=== PATIENT | male | born 1955 | race Caucasian/White ===

== ENCOUNTER → 2019-11-19 13:42 | Outpatient (BNVA) | payer MEDICARE, SELFPAY | PROVIDERS: Family Provider Family Medicine; PCP Family Medicine; Visit Provider Anesthesiology | DX: G89.29 Other chronic pain (principal); M51.36 Other intervertebral disc degeneration, lumbar region; M47.817 Spondylosis without myelopathy or radiculopathy, lumbosacral region; M48.062 Spinal stenosis, lumbar region with neurogenic claudication; M96.1 Postlaminectomy syndrome, not elsewhere classified; Z79.891 Long term (current) use of opiate analgesic | CPT/HCPCS: 80307; 99213; 99214 ==

== ENCOUNTER → 2020-01-15 13:56 | Outpatient (BNVA) | payer MEDICARE, SELFPAY | PROVIDERS: Family Provider Family Medicine; PCP Family Medicine; Visit Provider Anesthesiology | DX: G89.29 Other chronic pain (principal); M51.36 Other intervertebral disc degeneration, lumbar region; M48.062 Spinal stenosis, lumbar region with neurogenic claudication; M47.817 Spondylosis without myelopathy or radiculopathy, lumbosacral region; M53.3 Sacrococcygeal disorders, not elsewhere classified; M96.1 Postlaminectomy syndrome, not elsewhere classified; M79.651 Pain in right thigh; M79.652 Pain in left thigh; Z79.891 Long term (current) use of opiate analgesic | CPT/HCPCS: 99214 ==

== ENCOUNTER → 2020-04-19 13:43 | Outpatient (BNVA) | payer MEDICARE, SELFPAY | PROVIDERS: Family Provider Family Medicine; PCP Family Medicine; Visit Provider Anesthesiology | DX: G89.29 Other chronic pain (principal); M51.36 Other intervertebral disc degeneration, lumbar region; M48.062 Spinal stenosis, lumbar region with neurogenic claudication; M47.817 Spondylosis without myelopathy or radiculopathy, lumbosacral region; M53.3 Sacrococcygeal disorders, not elsewhere classified; M96.1 Postlaminectomy syndrome, not elsewhere classified; Z79.891 Long term (current) use of opiate analgesic | CPT/HCPCS: 99214 ==

== ENCOUNTER → 2020-06-22 13:54 | Outpatient (BNVA) | payer MEDICARE, SELFPAY | PROVIDERS: Family Provider Family Medicine; PCP Family Medicine; Visit Provider Anesthesiology | DX: G89.29 Other chronic pain (principal); M54.42 Lumbago with sciatica, left side; M54.41 Lumbago with sciatica, right side; M51.36 Other intervertebral disc degeneration, lumbar region; M48.062 Spinal stenosis, lumbar region with neurogenic claudication; M47.817 Spondylosis without myelopathy or radiculopathy, lumbosacral region; M53.3 Sacrococcygeal disorders, not elsewhere classified; M96.1 Postlaminectomy syndrome, not elsewhere classified; Z79.891 Long term (current) use of opiate analgesic | CPT/HCPCS: 99214 ==

== ENCOUNTER → 2020-08-17 10:41 | Outpatient (BNVA) | payer MEDICARE, SELFPAY | PROVIDERS: Family Provider Family Medicine; PCP Family Medicine; Visit Provider Nurse Practitioner | DX: G89.29 Other chronic pain (principal); M47.817 Spondylosis without myelopathy or radiculopathy, lumbosacral region; M48.062 Spinal stenosis, lumbar region with neurogenic claudication; M51.36 Other intervertebral disc degeneration, lumbar region; M53.3 Sacrococcygeal disorders, not elsewhere classified; Z79.891 Long term (current) use of opiate analgesic | CPT/HCPCS: 99213 ==

== ENCOUNTER → 2020-10-21 10:55 | Outpatient (BNVA) | payer MEDICARE, SELFPAY | PROVIDERS: Family Provider Family Medicine; PCP Family Medicine; Visit Provider Nurse Practitioner | DX: M48.062 Spinal stenosis, lumbar region with neurogenic claudication (principal); M47.817 Spondylosis without myelopathy or radiculopathy, lumbosacral region; M96.1 Postlaminectomy syndrome, not elsewhere classified; Z79.891 Long term (current) use of opiate analgesic | CPT/HCPCS: 99213 ==

== ENCOUNTER → 2020-12-20 10:47 | Outpatient (BNVA) | payer MEDICARE, SELFPAY | PROVIDERS: Family Provider Family Medicine; PCP Family Medicine; Visit Provider Nurse Practitioner | DX: G89.29 Other chronic pain (principal); M47.817 Spondylosis without myelopathy or radiculopathy, lumbosacral region; M48.062 Spinal stenosis, lumbar region with neurogenic claudication; M53.3 Sacrococcygeal disorders, not elsewhere classified; M96.1 Postlaminectomy syndrome, not elsewhere classified; Z79.891 Long term (current) use of opiate analgesic; Z79.899 Other long term (current) drug therapy | CPT/HCPCS: 99213 ==

== ENCOUNTER → 2021-02-14 11:15 | Outpatient (BNVA) | payer MEDICARE, SELFPAY | PROVIDERS: Family Provider Family Medicine; PCP Family Medicine; Visit Provider Anesthesiology | DX: G89.29 Other chronic pain (principal); M53.3 Sacrococcygeal disorders, not elsewhere classified; M51.36 Other intervertebral disc degeneration, lumbar region; M96.1 Postlaminectomy syndrome, not elsewhere classified; M48.062 Spinal stenosis, lumbar region with neurogenic claudication; M47.817 Spondylosis without myelopathy or radiculopathy, lumbosacral region; Z79.891 Long term (current) use of opiate analgesic; Z79.899 Other long term (current) drug therapy | CPT/HCPCS: 99213 ==

== ENCOUNTER → 2021-04-18 11:00 | Outpatient (BNVA) | payer MEDICARE, SELFPAY | PROVIDERS: Family Provider Family Medicine; PCP Family Medicine; Visit Provider Anesthesiology | DX: G89.29 Other chronic pain (principal); M48.062 Spinal stenosis, lumbar region with neurogenic claudication; M51.36 Other intervertebral disc degeneration, lumbar region; M47.817 Spondylosis without myelopathy or radiculopathy, lumbosacral region; M96.1 Postlaminectomy syndrome, not elsewhere classified; Z79.899 Other long term (current) drug therapy; Z79.891 Long term (current) use of opiate analgesic | CPT/HCPCS: 99213 ==

== ENCOUNTER → 2021-06-16 10:29 | Outpatient (BNVA) | payer MEDICARE, SELFPAY | PROVIDERS: Family Provider Family Medicine; PCP Family Medicine; Visit Provider Anesthesiology | DX: G89.29 Other chronic pain (principal); M48.062 Spinal stenosis, lumbar region with neurogenic claudication; M51.36 Other intervertebral disc degeneration, lumbar region; M47.817 Spondylosis without myelopathy or radiculopathy, lumbosacral region; M96.1 Postlaminectomy syndrome, not elsewhere classified; F17.210 Nicotine dependence, cigarettes, uncomplicated; Z79.891 Long term (current) use of opiate analgesic | CPT/HCPCS: 99213 ==

== ENCOUNTER → 2021-08-17 11:03 | Outpatient (BNVA) | payer MEDICARE, SELFPAY | PROVIDERS: Family Provider Family Medicine; PCP Family Medicine; Visit Provider Anesthesiology | DX: G89.29 Other chronic pain (principal); M48.062 Spinal stenosis, lumbar region with neurogenic claudication; M51.36 Other intervertebral disc degeneration, lumbar region; M47.817 Spondylosis without myelopathy or radiculopathy, lumbosacral region; M96.1 Postlaminectomy syndrome, not elsewhere classified; Z79.891 Long term (current) use of opiate analgesic | CPT/HCPCS: 99213 ==

== ENCOUNTER 2021-10-19 01:16 | Inpatient (IN) | payer MEDICARE, SELFPAY ==
[2021-10-19] VITALS (19 sets, daily range): BP systolic 145–204; BP diastolic 79–109; PULSE 72–117; RESP 9–96; TEMP 36.4–36.8; O2SAT 75–95; BMI 32.8
--- NOTE | 2021-10-19 01:21 | XRR_ITS ---
PROCEDURE INFORMATION: Exam: XR Chest Exam date and time: 10/19/2021 1:21 AM Age: 66 years old Clinical indication: Dyspnea and shortness of breath; Patient HX: Dyspnea with SOB and hypoxia. Diagnosedd with copd last month. ; Additional info: Cp TECHNIQUE: Imaging protocol: XR of the chest. Views: 1 view. COMPARISON: CT chest w con* [id number] 06/17/2018 1:07 PM FINDINGS: Lungs: There is enlargement of the pulmonary vascularity. There is thickening of the interstitial markings. Pleural spaces: Small bilateral pleural effusions. Heart/Mediastinum: The heart is mildly enlarged. Bones/joints: Unremarkable. XR/XR chest 1V portable [id number] IMPRESSION: 1. Congestive heart failure. 2. Small bilateral pleural effusions. Radiation Dose CTDIVOL = (mGy): DLP = (mGy-cm)
--- NOTE | 2021-10-19 01:21 | ECG_ITS ---
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 Measurements Intervals [place] Rate: 100 P: 46 [place]: 135 QRS: 49 QRSD: 89 T: 43 QT: 345 QTc: 446 Interpretive Statements SINUS TACHYCARDIA ABNORMAL RHYTHM ECG Compared to ECG 12/13/2017 16:07:13 ST (T wave) deviation no longer present Electronically Signed On 10-19-2021 16:04:37 MISSION SUPPORT SPECIALIST by Mylene Kennedy M.D. [email or web address] [email or web address] regional medical centerAnthera Pharmaceuticalssheltering arms hospitalDreamFace Interactive/store/OM/[id number]
[2021-10-19 01:30] LABS: Basophils # 0.1 10^3/uL (0.0-0.1); Basophils % 0.7 %; Eosinophils # 0.3 10^3/uL (0.0-0.8); Eosinophils % 2.2 %; Hematocrit 33.8 % (42.0-52.0); Hemoglobin 10.1 g/dL (11.7-16.6); Lymphocytes # 1.4 10^3/uL (0.8-4.8); Lymphocytes % 8.7 %; Mean Corpuscular HGB Conc 29.9 g/dL (30.0-36.0); Mean Corpuscular Hemoglobin 27.9 pg (28.0-34.0); Mean Corpuscular Volume 93.4 fl (80-94); Mean Platelet Volume 9.8 fL (7.4-10.4); Monocytes # 0.8 10^3/uL (0.2-0.9); Monocytes % 5.2 %; Neutrophils # 12.99 10^3/uL (1.8-7.7); Neutrophils % 82.8 %; Nucleated Red Blood Cells % 0 %; Platelet Count 364 10^3/cmm (130-400); Red Blood Count 3.62 10^6/uL (4.1-5.3); Red Cell Distribution Width 13.8 % (12.1-15.1); White Blood Count 15.7 10^3/uL (4.0-10.0)
--- NOTE | 2021-10-19 01:31 | ED_ITS ---
HPI - SOB/Dyspnea General: Chief Complaint: Shortness of Breath/Dyspnea Stated Complaint: SOB Time Seen by Provider: 10/19/21 01:21 Source: patient and EMS Mode of arrival: EMS Limitations: no limitations History of Present Illness: HPI Narrative: 66-year-old male with a history of hypertension normal COPD states that over the last day has been having increasing shortness of breath cough and wheezing he called EMS due to severe dyspnea EMS states today while he was in the 70s on room air is normal oxygen at home he said he had wheezing as well gave him Solu-Medrol breathing treatment placement oxygen patient's breathing has improved he is able to talk in full sentences here but still is in distress with wheezing. Did take patient off oxygen and he desaturated to 75% here. He denies any recent sick contacts or fever. Associated symptoms: Deny abdominal pain, chest pain, fever(s), nausea or vomiting Review of Systems Const: Denies: fever(s), chills, body aches or change in appetite Eyes: Denies: blurry vision or eye discomfort ENMT: Denies: throat pain or dental pain Card: Denies: chest pain Resp: Reports: dyspnea, non-productive cough and wheezing GI: Denies: abdominal pain, nausea, vomiting or diarrhea : Denies: dysuria Musc: Denies: neck pain or back pain Skin/Breast: Denies: rash Neuro: Denies: headache(s) Psych: Denies: depression Fernando/Lymph: Denies: easy bruising All/Imm: Denies: urticaria PFSH ED PFSH: Medical History (Updated 10/19/21 @ 04:03 by Marco Alexander MD) Chronic low back pain Chronic SI joint pain Degeneration of lumbar intervertebral disc Encounter for long-term use of opiate analgesic Long-term use of high-risk medication Opioid contract exists Postlaminectomy syndrome, not elsewhere classified Spinal stenosis, lumbar region with neurogenic claudication Spondylosis without myelopathy or radiculopathy, lumbosacral region Surgical History History of lumbar laminectomy for spinal cord decompression Dr. Srivastava 03/28/17: Left L4-L5, L5-S1 laminectomy,discectomy,foraminotomy History of tonsillectomy S/P knee surgery right S/P shoulder surgery Left Status post hemilaminotomy 06/17/17 Dr. Srivastava: Left L4-L5 hemilaminotomy/discectomy/ foraminotomy. reexploration Family History Mother Hypertension mother at age 60 of c.h.f. Social History Quit status (tobacco): has quit using tobacco Second hand smoke exposure: No Smoking risk assessment/counseling performed?: No Alcohol intake: current Alcohol intake frequency: holidays/special occasions only Alcohol type: beer Desire information about alcohol rehabilitation?: No Counseling given: Yes Desire information about substance/drug rehabilitation?: No Counseling given: No Adopted: No Caregiver/support person: Yes (TO ) Lives independently: Yes Household members: spouse Marital status: History of recent travel: No Physical Exam Const: COMMON NORMALS: patient oriented x3; apparent distress GENERAL APPEARANCE: in distress and ill appearing HENMT: COMMON NORMALS: normocephalic and atraumatic HEAD & SCALP: normocephalic and atraumatic Eye: COMMON NORMALS: Equal, round and reactive pupils present and EOMs intact bilaterally PUPIL: Yes Equal, round and reactive pupils present Neck/C-Spine: COMMON NORMALS: full ROM and supple Chest: COMMONS NORMALS: normal inspection of the chest and normal palpation of entire chest wall Resp: EFFORT & INSPECTION: Yes tachypneic and Yes respiratory distress AUSCULTATION: rales and wheezes Cardio: COMMON NORMALS: regular rate, regular rhythm and No murmurs present (Cardio) RATE: regular rate RHYTHM: regular rhythm GI: COMMON NORMALS: Normal to inspection, nondistended, normoactive bowel sounds present, Soft to palpation, non-tender and no masses PALPATION: Yes Soft to palpation Extremity: COMMON NORMALS: normal to inspection and full ROM Neuro: COMMON NORMALS: patient oriented x3, moves all extremities and no focal motor deficits Psych: COMMON NORMALS: mental status grossly normal, Normal thought process present and cooperative THOUGHT PROCESS: Normal thought process present Skin: COMMON NORMALS: no rashes or lesions noted and no wounds GENERAL SKIN EXAM: no rashes or lesions noted Course Vital Signs: Vital signs: Vital Signs Temperature 97.5 F L 10/19/21 01:17 Pulse Rate 83 10/19/21 01:56 Respiratory Rate 26 H 10/19/21 01:17 Blood Pressure 171/85 10/19/21 01:56 Pulse Oximetry 90 10/19/21 01:56 MDM - SOB/Dyspnea MDM Narrative: Medical decision making narrative: Patient presents here with hypertensive emergency with pulmonary edema likely a flash pulmonary edema from his hypertension. He is much improved here after treating his blood pressure blood pressure now 144/79 and he feels much improved and is in minimal distress currently. Did treat him with antibiotics for possible pneumonia but likely is a pulmonary edema. He is having no chest pain Covid test is negative spoke to hospitalist will admit at this time. Lab Data: Labs: Lab Results 10/19/21 10/19/21 10/19/21 01:25 01:25 01:25 WBC 15.7 10^3/uL H 10 ^3/uL (4.0-10.0) RBC 3.62 10^6/uL L 10 ^6/uL (4.1-5.3) Hgb 10.1 g/dL L g/dL (11.7-16.6) Hct 33.8 % L % (42.0-52.0) MCV 93.4 fl fl (80-94) MCH 27.9 pg L pg (28.0-34.0) MCHC 29.9 g/dL L g/dL (30.0-36.0) RDW 13.8 % % (12.1-15.1) Plt Count 364 10^3/cmm 10^3 /cmm (130-400) MPV 9.8 fL fL (7.4-10.4) Neut % (Auto) 82.8 % % Lymph % (Auto) 8.7 % % [place] % (Auto) 5.2 % % Eos % (Auto) 2.2 % % Baso % (Auto) 0.7 % % Neut # (Auto) 12.99 10^3/uL H 1 0^3/uL (1.8-7.7) Lymph # (Auto) 1.4 10^3/uL 10^3/ uL (0.8-4.8) [place] # (Auto) 0.8 10^3/uL 10^3/ uL (0.2-0.9) Eos # (Auto) 0.3 10^3/uL 10^3/ uL (0.0-0.8) Baso # (Auto) 0.1 10^3/uL 10^3/ uL (0.0-0.1) Nucleated RBC % (a uto) 0 % % Nucleated RBCs # 0.0 /100WBC /100W BC PT 13.40 SECONDS SEC ONDS (12.1-14.9) INR 0.99 (0.8-1.2) Sodium 141 mmol/L mmol/L (136-145) Potassium 5.8 mmol/L H mmol /L (3.5-5.1) Chloride 111 mmol/L H mmol /L (98-107) Carbon Dioxide 19 mmol/L L mmol/ L (22-29) Anion Gap 16.8 (5-19) BUN 35 mg/dL H mg/dL (8-23) Creatinine 2.4 mg/dL H mg/dL (0.7-1.2) GFR Calculation 27.4 mL/min L mL/ min (90-130) Glucose 276 mg/dL H mg/dL (65-115) Calculated Osmolal ity 310 mOsm/kg H mOs m/kg (285-295) Calcium 7.6 mg/dL L mg/dL (8.5-10.5) Total Bilirubin 0.2 mg/dL mg/dL (0.15-1.2) AST 21 U/L U/L (0-40) ALT 30 U/L U/L (0-41) Alkaline Phosphata se 89 IU/L IU/L (40-130) Troponin T Baselin e NT-Pro-B Natriuret Pep 3386 pg/mL H pg/m L (0-125) Total Protein 5.5 g/dL L g/dL (6.6-8.7) Albumin 3.4 g/dL L g/dL (3.5-5.2) Globulin 2.1 g/dL g/dL (1.3-4.6) SARS-CoV-2 Ag (Rap id) 10/19/21 10/19/21 01:25 01:41 WBC RBC Hgb Hct MCV MCH MCHC RDW Plt Count MPV Neut % (Auto) Lymph % (Auto) [place] % (Auto) Eos % (Auto) Baso % (Auto) Neut # (Auto) Lymph # (Auto) [place] # (Auto) Eos # (Auto) Baso # (Auto) Nucleated RBC % (a uto) Nucleated RBCs # PT INR Sodium Potassium Chloride Carbon Dioxide Anion Gap BUN Creatinine GFR Calculation Glucose Calculated Osmolal ity Calcium Total Bilirubin AST ALT Alkaline Phosphata se Troponin T Baselin e 53 ng/L H ng/L (0-15) NT-Pro-B Natriuret Pep Total Protein Albumin Globulin SARS-CoV-2 Ag (Rap id) Negative (Negative) Imaging Data^: CXR: Attestation: I personally reviewed and interpreted this imaging study as follows: Radiologist's impression: [address] [place] [address] XRay Report Signed Patient: Uday Julien Unit #: [id number] : 1955 Age/Sex: 66 / M ADM Date: 10/19/21 Loc: ER Room/Bed: Attending Dr: Ordering Provider/Ordering MD: Marco Alexander MD Date of Service: 10/19/21 Procedure(s): XR chest 1V portable [id number] Accession Number(s): [id number] Report Number: [id number] PROCEDURE INFORMATION: Exam: XR Chest Exam date and time: 10/19/2021 1:21 AM Age: 66 years old Clinical indication: Dyspnea and shortness of breath; Patient HX: Dyspnea with SOB and hypoxia. Diagnosedd with copd last month. ; Additional info: Cp TECHNIQUE: Imaging protocol: XR of the chest. Views: 1 view. COMPARISON: CT chest w con* [id number] 06/17/2018 1:07 PM FINDINGS: Lungs: There is enlargement of the pulmonary vascularity. There is thickening of the interstitial markings. Pleural spaces: Small bilateral pleural effusions. Heart/Mediastinum: The heart is mildly enlarged. Bones/joints: Unremarkable. XR/XR chest 1V portable [id number] IMPRESSION: 1. Congestive heart failure. 2. Small bilateral pleural effusions. Radiation Dose CTDIVOL = (mGy): DLP = (mGy-cm) Dictated By: Chandana Valdez Signed By: Chandana Valdez Signed Date/Time: 10/19/21 0349 DD/ 0121 EKG Data^: EKG 1: Attestation: I personally reviewed and interpreted this EKG as follows: EKG Interpretation Date: 10/19/21 EKG interpretation time: 01:31 Interpretation: sinus tach hr [address] or t ave abnormalities qrs 89 qtc 402 Critical Care Time Critical Care Time: Critical Care Time: Yes Total Critical Care Time: 35 Attestation: The high probability of a clinically significant, sudden or life threatening deterioration of the patient's [] system(s) required my full and direct attention, intervention and personal management. The critical care time is as shown. This time is in addition to time spent performing any reported procedures but includes the following: [x] Data and vital sign review and interpretation [x] Patient assessment, examination and intervention [x] Documentation [x] Medication orders and management Discharge Plan Discharge Patient Disposition: Admitted As Inpatient Clinical Impression: Hypertensive emergency, Pulmonary edema Condition: Stable Coding Level of Care Code ED Public Administration Professor for Chg Fwd Exam Comprehensive
[2021-10-19 01:44] LABS: INR 0.99 (0.8-1.2)
[2021-10-19 01:51] LABS: Troponin(5th) Baseline 53 ng/L (0-15)
[2021-10-19] MEDS: labetalol 5 mg/mL SDV 20mL 10 MG IVP (01:51)
[2021-10-19] MEDS: cefTRIAXone 1,000 MG in sodium chloride 0.9% (plus) 50 ML 100 MG IV ×2 (01:52→09:48)
[2021-10-19 02:00] LABS: Alanine Aminotransferase 30 U/L (0-41); Albumin Level 3.4 g/dL (3.5-5.2); Alkaline Phosphatase 89 IU/L (40-130); Anion Gap 16.8 (5-19); Aspartate Amino Transferase 21 U/L (0-40); Blood Urea Nitrogen 35 mg/dL (8-23); Calcium 7.6 mg/dL (8.5-10.5); Carbon Dioxide 19 mmol/L (22-29); Chloride 111 mmol/L (98-107); Globulin 2.1 g/dL (1.3-4.6); Glomerular Filtration Rate 27.4 mL/min (90-130); Glucose 276 mg/dL (65-115); NT Pro B Type Natriuretic Pept 3386 pg/mL (0-125); Osmolality Calculated 310 mOsm/kg (285-295); Potassium 5.8 mmol/L (3.5-5.1); Sodium 141 mmol/L (136-145); Total Bilirubin 0.2 mg/dL (0.15-1.2); Total Protein 5.5 g/dL (6.6-8.7)
[2021-10-19 02:03] LABS: SARS Covid-2 Antigen Negative (Negative)
[2021-10-19] MEDS: azithromycin 500 MG in sodium chloride 0.9% 250 ML 250 MG IV (02:20)
[2021-10-19] MEDS: nitroglycerin 0.4 mg sublingual Tablet SUBLINGUAL (02:45)
[2021-10-19] MEDS: hyDRALAzine 20 mg/mL INJ 1 mL 10 MG IVP (02:45)
[2021-10-19] MEDS: sodium chloride 0.9% 500 ML 999 ML IV (02:46)
--- NOTE | 2021-10-19 03:21 | ECG_ITS ---
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 Measurements Intervals [place] Rate: 75 P: 3 IN: 137 QRS: 24 QRSD: 97 T: 32 QT: 395 QTc: 442 Interpretive Statements SINUS RHYTHM INTERPRETATION BASED ON A DEFAULT AGE OF 40 YEARS Compared to ECG 10/19/2021 01:31:44 Sinus tachycardia no longer present Electronically Signed On 10-19-2021 16:08:53 JOY OPERATOR by Mylene Kennedy M.D. [email or web address] lady of mercy hospital.[employer]/store/NU/[id number] f
[2021-10-19] MEDS: labetalol 5 mg/mL SDV 20mL 20 MG IVP ×2 (03:50→05:53)
--- NOTE | 2021-10-19 05:46 | PC.NURSE ---
Pt is concerned that he will miss his [facility] pain clinic appointment on 10/20/2021. Pt requests that nurse calls pain clinic to update physicians office that he is hospitalized.
--- NOTE | 2021-10-19 06:52 | USCV_ITS ---
Uday Julien Age: 66 Gender: M : 1955 Exam Date: 10/19/2021 07:37 Ordering Phys: Sonya Echevarria MD Technologist: Kristy Bess [place] [facility] [place] Indication: HTN, FLASH PULM EDEMA BP: 158 / 94 HR: 87 Rhythm: Sinus Technical Quality: Adequate MEASUREMENTS (Male / Female) Normal Values 2D ECHO LV Diastolic Diameter PLAX 5.6 cm 4.2 - 5.9 / 3.9 - 5.3 cm LV Systolic Diameter PLAX 3.8 cm IVS Diastolic Thickness 1.7 cm 0.6 - 1.0 / 0.6 - 0.9 cm IVS Systolic Thickness 2.5 cm LVPW Diastolic Thickness 1.7 cm 0.6 - 1.0 / 0.6 - 0.9 cm LVPW Systolic Thickness 2.1 cm LVOT Diameter 2.0 cm LV Ejection Fraction 2D Teich 60.5 % LV Ejection Fraction MOD 2C 52.9 % LV Ejection Fraction 2C AL 52.1 % LA Diameter 4.4 cm LA Width 3.7 cm LA Height 5.2 cm RA Width 3.9 cm RA Height 3.6 cm Aorta at Sinotubular Diameter 2.7 cm M-MODE Aortic Annulus Diameter 2.9 cm LA Ao Ratio MM 1.5 MV E Point Septal Separation 0.2 cm DOPPLER AV Peak Velocity 257.7 cm/s LVOT Peak Velocity 128.0 cm/s AV Area Cont Eq vti 1.8 cm squared AV Area Cont Eq pk 1.6 cm squared MV Peak Velocity 150.0 cm/s MV Area PHT 4.2 cm squared Mitral E to A Ratio 1.1 MV E' Velocity 64.5 cm/s Mitral E to MV E' Ratio 16.1 Mitral E to LV E' Lateral Ratio 15.1 Mitral E to LV E' Septal Ratio 17.5 TR Peak Velocity 216.4 cm/s TR Peak Gradient 18.7 mmHg TR Mean Velocity 229.4 cm/s TR Mean Gradient 21.7 mmHg TR Velocity Time Integral 84.1 cm TV Peak E Velocity 63.0 cm/s Right Atrial Pressure 3.0 mmHg Pulmonary Artery Systolic Pressu 21.7 mmHg PV Peak Velocity 105.0 cm/s RV Acceleration Time 0.1 s RV Ejection Time 0.3 s RV AcT/ET 0.3 FINDINGS Left Ventricle Normal left ventricular size. LV systolic function is normal with EF of 55-60%. No regional wall motion abnormalities. Diastolic function is abnormal Right Ventricle The right ventricle is normal in size and function. Right Atrium The right atrium is normal in size. Left Atrium The left atrium is dilated Mitral Valve Mildly thickened mitral valve. Mildly increased mean gradient across the mitral valve consistent with mild mitral stenosis. There is trace mitral regurgitation. Aortic Valve Aortic valve is thickened. Mild aortic stenosis is seen. TEE is 1.8cm2 and mean gradient across the aortic valve is 13mmHg. There is trace aortic regurgitation. Tricuspid Valve Structurally normal tricuspid valve without significant stenosis or regurgitation. Insufficient TR jet to calculate RVSP Pulmonic Valve Structurally normal pulmonic valve without significant stenosis. There is no pulmonic regurgitation. Pericardium Normal pericardium without effusion. Aorta Normal ascending aorta dimension. CONCLUSIONS LV systolic function is normal with EF 55 to 60%. Diastolic function is abnormal. Left atrium is dilated. Mitral valve is thickened. Mildly increased gradients across mitral valve consistent with mild mitral stenosis. Trace mitral regurgitation. Aortic valve is thickened. Mild aortic stenosis. Trace aortic regurgitation. Compared to prior echocardiogram from 12/25/2018, patient has mild mitral stenosis Colin Monique MD (Electronically Signed) Final Date: 19 October 2021 13:00 S
--- NOTE | 2021-10-19 06:52 | US_ITS ---
WS: [id number] ULTRASOUND RENAL TECHNIQUE: Ultrasound examination of both kidneys. CLINICAL INFORMATION: NIKOLAY on CKD, evalute for hydronephrosis/obstruction COMPARISON: None. FINDINGS: Bilateral echogenic kidneys can be seen with medical renal disease.Small amount of perineph bennett edema/fluid. RIGHT: Small simple appearing right lower pole renal cyst measuring 1.6 x 1.0 x 1.3 CM. Right kidney is normal in size and appearance. Echogenicity: Increased Cortical thickness: 1.0 cm; Normal. Hydronephrosis: None. Perinephric fluid: None. Right kidney measures: 12.4 cm x 4.9 cm x 4.4 cm. LEFT: Left kidney is normal in size and appearance. Echogenicity: Increased Cortical thickness: 1.4 cm; Normal. Hydronephrosis: None. Perinephric fluid: None. Left kidney measures: 14.4 cm x 4.9 cm x 4.9 cm. Normal visualized aorta. Normal bladder with prevoid volume measuring 42 cc. US/US renal BI* [id number] IMPRESSION: 1. No hydronephrosis in either kidney. 2. Bilateral echogenic kidneys can be seen with medical renal disease. 3. Small simple right lower pole renal cyst. 4. Normal bladder.
--- NOTE | 2021-10-19 06:53 | P.HP_ITS ---
Providers/Chief Complaint Admitting Physician: Sonya Echevarria MD Primary Care Provider: Lev Gonzalez MD Chief Complaint: SOB History of Present Illness Uday Julien is a 66 year old male with a past medical history of hypertension, which is uncontrolled, baseline blood pressure ranges between 172 180 per patient, rheumatoid arthritis on NSAIDs, COPD, not normally on home oxygen chronic back pain, presenting to the emergency room today with shortness of breath progressing over the last 3 to 4 days. Patient reports he first started experiencing dyspnea 3 to 4 days ago. He visited with his primary care provider, was told he has COPD exacerbation and started on some inhalers which made him feel better. However today suddenly at rest he felt much worse, oxygen saturation when he was picked up by EMS was 70% on room air. He was requiring 4 to 5 L on supplemental O2. He had diffusely wheezing on examination when he presented. Her blood pressure initially was noted to be 220/110 for which she received multiple pushes of labetalol and hydralazine. At the time of my assessment blood pressure has trended down at 160/89 mmHg. Patient feels symptomatically much improved. Chest x-ray shows diffuse bilateral interstitial infiltrates, may be consistent with flash pulmonary edema versus pneumonia. Reportedly a chest x-ray was also taken at PCPs office 3 to 4 days ago at which time he was told consistent with COPD. Denies any fever. Denies any URI symptoms. Reports a dry cough. Also reports orthopnea. No lower extremity swelling, however noted to have trace pitting edema bilaterally. Denies any chest pain palpitations or syncope. He is vaccinated for COVID-19, received 2 doses Moderna, last in january 2021. Review of Systems General: Reports: 10 or more systems reviewed and unremarkable except in HPI and below Const: Denies: fever(s), chills or body aches Eyes: Denies: change in vision, blurry vision or photophobia ENMT: Reports: hoarseness; Denies: throat pain, enlarged tonsils, odynophagia or nasal congestion Card: Denies: chest pain, palpitations, irregular heart rhythm, edema, swelling of feet/ankles, lightheadedness, pre-syncope, dyspnea on exertion or orthopnea Resp: Denies: dyspnea, productive cough, non-productive cough, wheezing, stridor, pain on inspiration, change in phlegm color, hemoptysis or chest congestion GI: Denies: abdominal pain, nausea, vomiting, hematemesis, coffee ground emesis, dysphagia, heartburn, diarrhea, constipation, GI cramping, change in stool character, hematochezia or melena : Denies: flank pain, dysuria, urinary frequency, urinary urgency, urinary hesitancy or hematuria Musc: Denies: neck pain, back pain, extremity pain, joint swelling, joint warmth or deformity Neuro: Denies: headache(s), numbness in extremities, weakness in extremities, sensory changes, difficulty walking, frequent falls, dizziness, vertigo, behavioral changes, Slurred speech present or seizure-like activity Psych: Denies: anxiety, depression, suicidal ideation or homicidal ideation Endo: Denies: polyuria, polydipsia, tired all the time, cold intolerance or hot flashes Fernando/Lymph: Denies: easy bruising or easy bleeding Medications/Allergies Home Medications Medication Instructions Recorded Confirmed Last Taken Type isosorbide dinitrate 30 mg tablet 30 mg PO ONCE tab 11/12/19 08/17/21 Unknown History lisinopril 40 mg tablet 40 mg PO ONCE 11/12/19 08/17/21 Unknown History metoprolol tartrate 50 mg tablet 50 mg PO BID 11/12/19 08/17/21 Unknown History olopatadine 0.1 % eye drops 1 drop OPHTHALMIC (EYE) BID 11/12/19 08/17/21 Unknown History amlodipine 10 mg tablet 10 mg PO ONCE 11/19/19 08/17/21 Unknown History glimepiride 2 mg tablet 2 mg PO QAM 11/19/19 08/17/21 Unknown History indomethacin 50 mg capsule 50 mg PO BID 11/19/19 08/17/21 Unknown History pantoprazole 40 mg tablet,delayed 40 mg PO ONCE 11/19/19 08/17/21 Unknown History release tamsulosin 0.4 mg capsule 0.4 mg PO BID cap 11/19/19 08/17/21 Unknown History finasteride 5 mg tablet 5 mg PO DAILY tab 01/15/20 08/17/21 Unknown History oxycodone 30 mg tablet 30 mg PO .5 TIMES A DAY PRN 30 08/17/21 08/17/21 Unknown Rx Days #150 tab oxycodone 30 mg tablet 30 mg PO .5 TIMES A DAY PRN 30 08/17/21 08/17/21 Unknown Rx Days #150 tab Allergies Allergy/AdvReac Type Severity Reaction Status Date / Time No Known Allergies Allergy Verified 08/17/21 11:11 PFSH Acute PFSH: Medical History (Updated 10/19/21 @ 07:14 by Sonya Echevarria MD) Chronic low back pain Chronic SI joint pain Degeneration of lumbar intervertebral disc Encounter for long-term use of opiate analgesic Long-term use of high-risk medication Opioid contract exists Postlaminectomy syndrome, not elsewhere classified Spinal stenosis, lumbar region with neurogenic claudication Spondylosis without myelopathy or radiculopathy, lumbosacral region Surgical History History of lumbar laminectomy for spinal cord decompression Dr. Srivastava 03/28/17: Left L4-L5, L5-S1 laminectomy,discectomy,foraminotomy History of tonsillectomy S/P knee surgery right S/P shoulder surgery Left Status post hemilaminotomy 06/17/17 Dr. Srivastava: Left L4-L5 hemilaminotomy/discectomy/ foraminotomy. reexploration Family History Mother Hypertension mother at age 60 of c.h.f. Social History Quit status (tobacco): has quit using tobacco Second hand smoke exposure: No Smoking risk assessment/counseling performed?: No Alcohol intake: current Alcohol intake frequency: holidays/special occasions only Alcohol type: beer Desire information about alcohol rehabilitation?: No Counseling given: Yes Desire information about substance/drug rehabilitation?: No Counseling given: No Adopted: No Caregiver/support person: Yes (TO ) Lives independently: Yes Household members: spouse Marital status: History of recent travel: No Vitals/I&O/Wt Last Vital Signs Temp 97.5 F L 10/19/21 01:17 Pulse 81 10/19/21 05:04 Resp 15 10/19/21 05:04 BP 204/92 10/19/21 05:04 Pulse Ox 94 10/19/21 05:04 10/18/21 10/18/21 10/19/21 14:59 22:59 06:59 Intake Total 800 / 800 Balance 800 / 800 Weight last 48 hrs Weight 106.594 kg Physical Exam Narrative: EXAM NARRATIVE: General: No acute distress, AO x3 HEENT: PERRLA, pupils bilaterally equal and reactive, pallors not present Chest: Normal vesicular breath sounds, no added sounds, equal good air entry bilaterally CVS: S1-S2 regular, no murmurs, no tachycardia, no gallops, no rubs Abdomen: Soft, nontender, no organomegaly, bowel sounds present Neuro: No focal deficits, no facial deformity, AO x3, power 5/5 in all limbs Extremities: trace B/L pitting edema Data : 10/19/21 01:25 10/19/21 01:25 Micro: Microbiology 10/19/21 03:25 Blood Culture - Preliminary Blood SPECIMEN COLLECTED 10/19/21 03:00 Blood Culture - Preliminary Blood SPECIMEN COLLECTED Attestation for Other Data: I personally reviewed and interpreted the following: Other data: Laboratory Results WBC 15.7 10^3/uL (4.0-10.0) H 10/19/21 01:25 RBC 3.62 10^6/uL (4.1-5.3) L 10/19/21 01:25 Hgb 10.1 g/dL (11.7-16.6) L 10/19/21 01:25 Hct 33.8 % (42.0-52.0) L 10/19/21 01:25 MCV 93.4 fl (80-94) 10/19/21 01:25 MCH 27.9 pg (28.0-34.0) L 10/19/21 01:25 MCHC 29.9 g/dL (30.0-36.0) L 10/19/21 01:25 RDW 13.8 % (12.1-15.1) 10/19/21 01:25 Plt Count 364 10^3/cmm (130-400) 10/19/21 01:25 MPV 9.8 fL (7.4-10.4) 10/19/21 01:25 Neut % (Auto) 82.8 % 10/19/21 01:25 Lymph % (Auto) 8.7 % 10/19/21 01:25 [place] % (Auto) 5.2 % 10/19/21 01:25 Eos % (Auto) 2.2 % 10/19/21 01:25 Baso % (Auto) 0.7 % 10/19/21 01:25 Neut # (Auto) 12.99 10^3/uL (1.8-7.7) H 10/19/21 01:25 Lymph # (Auto) 1.4 10^3/uL (0.8-4.8) 10/19/21 01:25 [place] # (Auto) 0.8 10^3/uL (0.2-0.9) 10/19/21 01:25 Eos # (Auto) 0.3 10^3/uL (0.0-0.8) 10/19/21 01:25 Baso # (Auto) 0.1 10^3/uL (0.0-0.1) 10/19/21 01:25 Nucleated RBC % (auto) 0 % 10/19/21 01:25 Nucleated RBCs # 0.0 /100WBC 10/19/21 01:25 PT 13.40 SECONDS (12.1-14.9) 10/19/21 01:25 INR 0.99 (0.8-1.2) 10/19/21 01:25 Sodium 141 mmol/L (136-145) 10/19/21 01:25 Potassium 5.8 mmol/L (3.5-5.1) H 10/19/21 01:25 Chloride 111 mmol/L (98-107) H 10/19/21 01:25 Carbon Dioxide 19 mmol/L (22-29) L 10/19/21 01:25 Anion Gap 16.8 (5-19) 10/19/21 01:25 BUN 35 mg/dL (8-23) H 10/19/21 01:25 Creatinine 2.4 mg/dL (0.7-1.2) H 10/19/21 01:25 GFR Calculation 27.4 mL/min (90-130) L 10/19/21 01:25 Glucose 276 mg/dL (65-115) H 10/19/21 01:25 Calculated Osmolality 310 mOsm/kg (285-295) H 10/19/21 01:25 Calcium 7.6 mg/dL (8.5-10.5) L 10/19/21 01:25 Total Bilirubin 0.2 mg/dL (0.15-1.2) 10/19/21 01:25 AST 21 U/L (0-40) 10/19/21 01:25 ALT 30 U/L (0-41) 10/19/21 01:25 Alkaline Phosphatase 89 IU/L (40-130) 10/19/21 01:25 Troponin T Baseline 53 ng/L (0-15) H 10/19/21 01:25 Troponin T 120 Minute 57.30 ng/L (0-15) H 10/19/21 03:49 Delta Troponin T 4.30 ABS# (0-10) 10/19/21 03:49 NT-Pro-B Natriuret Pep 3386 pg/mL (0-125) H 10/19/21 01:25 Total Protein 5.5 g/dL (6.6-8.7) L 10/19/21 01:25 Albumin 3.4 g/dL (3.5-5.2) L 10/19/21 01:25 Globulin 2.1 g/dL (1.3-4.6) 10/19/21 01:25 SARS-CoV-2 Ag (Rapid) Negative (Negative) 10/19/21 01:41 Impressions Chest X-Ray 10/19/21 01:21 IMPRESSION: 1. Congestive heart failure. 2. Small bilateral pleural effusions. Radiation Dose CTDIVOL = (mGy): DLP = (mGy-cm) A&P Assessment and plan (1) Hypertensive emergency: Status: Acute (2) Pulmonary edema: Status: Acute Qualifiers: Chronicity: acute Qualified Code(s): J81.0 - Acute pulmonary edema (3) COPD (chronic obstructive pulmonary disease): Status: Acute Qualifiers: COPD type: unspecified COPD Qualified Code(s): J44.9 - Chronic obstructive pulmonary disease, unspecified (4) Acute respiratory failure with hypoxemia: Status: Acute (5) NIKOLAY (acute kidney injury): Status: Acute (6) Hyperkalemia: Status: Acute Additional A&P Information Patient presenting today with hypertensive emergency, acute respiratory distress which may be related to flash pulmonary edema versus pneumonia. _Received multiple doses of labetalol and hydralazine IV overnight, at the time of my assessment blood pressure is down to 160/89 mmHg. Target acute reduction of 25% has been achieved. This a.m. we will start his oral medications including amlodipine 10 mg p.o. daily, Imdur 30 mg p.o. daily, metoprolol 50 mg p.o. twice daily. Hold lisinopril in view of NIKOLAY. Acute respiratory distress may be related to flash pulmonary edema from hypertensive emergency versus bilateral pneumonia/COPD exacerbation. DuoNebs and budesonide inhalation scheduled. Empiric treatment with ceftriaxone and azithromycin in the interim. Check procalcitonin. Check D-dimer to screen for PE. NIKOLAY, possibly on CKD. Patient reports that he has been having kidney problems recently, describes this as urinary hesitancy and difficulty initiating stream. Patient may have bladder outlet obstruction related to enlarged prostate. Check renal ultrasound to evaluate for any hydronephrosis/obstruction. Other possibilities include NIKOLAY as a result of hypertensive emergency. Check Covid 19 PCR lasix 40mg iv now, montior urine output and kidney function closely check echocardiogram Attestations Medical Necessity Statement*: >2 midnight admission anticipated for above defined care Coding Level of Care Code Acute Deputy Of Counter Intelligence for [facility] Fwd Diagnoses Hypertensive emergency I16.1 Pulmonary edema J81.0 Chronicity: acute COPD (chronic obstructive pulmonary disease) J44.9 COPD type: unspecified COPD Acute respiratory failure with hypoxemia J96.01 NIKOLAY (acute kidney injury) N17.9 Hyperkalemia E87.5
--- NOTE | 2021-10-19 08:00 | PC.NURSE ---
pTS BLOOD GLUCOSE CHECKED; 198
[2021-10-19 08:03] LABS: Glucose Point of Care 198 mg/dL (70-110)
[2021-10-19 08:17] LABS: Procalcitonin 0.08 ng/mL (0-0.5)
[2021-10-19 08:54] LABS: D Dimer 1.24 ug/mIFEU (0-0.59)
[2021-10-19] MEDS: azithromycin 500 MG in sodium chloride 0.9% 250 ML 250 MG PO (08:57)
[2021-10-19] MEDS: enoxaparin 40 mg/0.4 mL Syringe SUBCUT (08:57)
[2021-10-19 08:58] LABS: Troponin 5 6HR 54.67 ng/L (0-15); Troponin 5 6HR Delta 1.67 ng/L (0-12)
[2021-10-19] MEDS: FUROsemide 10 mg/mL SDV 4mL 40 MG IVP ×2 (08:58→15:54)
--- NOTE | 2021-10-19 09:01 | USCV_ITS ---
Wily Uday Age: 66 Gender: M : 1955 Exam Date: 10/19/2021 09:54 Ordering Phys: Cody Guzman MD Technologist: FRANCHESCA [place] [facility] [place] R/O DVT PROCEDURES: Venous duplex imaging was performed in bilateral lower extremities. The following venous structures were evaluated: common femoral vein, profunda vein, proximal portion of the greater saphenous vein, superficial femoral vein, and the popliteal vein. In addition, the posterior tibial and peroneal trunk were evaluated. Serial compression, augmentation maneuvers, and spectral Doppler flow evaluation were performed. FINDINGS: Normal 2-D Doppler and augmentation and compressibility throughout the lower extremity venous structures. Additional imaging through the proximal calf veins also reveals no thrombus. Limited evaluation of the greater saphenous vein is patent with no thrombus.. CONCLUSIONS No evidence of right lower extremity DVT. No evidence of left lower extremity DVT. Henrique Sanders MD (Electronically Signed) Final Date: 19 October 2021 12:08 S
[2021-10-19 09:44] LABS: Add Urine Microscopic? YES; Bilirubin Urine Neg (Negative); Blood Urine Neg (Negative); Glucose Urine UA Trace (Normal); Ketones Urine Negative (Negative); Leukocyte Esterase Urine Negative (Negative); Nitrate Urine Negative (Negative); Protein Urine 3+ (Negative); Specific Gravity, Urine 1.015 (1.005-1.030); Urine Appearance Clear (CLEAR); Urine Color Yellow (Yellow); Urobilinogen Urine Norm (Negative); pH Urine 5 (5-7)
[2021-10-19] MEDS: dextrose 50% syringe 50 mL IVP (09:49)
[2021-10-19] MEDS: insulin regular-human 10 UNIT in SYRINGE 1 EACH IVP (09:49)
[2021-10-19] MEDS: amlodipine 10 mg Tablet PO (09:51)
[2021-10-19] MEDS: metoprolol tartrate 50 mg Tablet PO (09:51)
[2021-10-19] MEDS: tamsulosin 0.4 mg Capsule PO ×2 (09:52→17:07)
[2021-10-19] MEDS: pantoprazole DR 40 mg Tablet PO (09:52)
[2021-10-19 09:54] LABS: RBC Urine 0-4 /hpf (0-2); Squamous Epithelial Cell Urine 0-4 /hpf (0-5)
[2021-10-19 09:55] LABS: Add Urine Culture? No; Bacteria Urine TRACE /hpf; Mucus Urine TRACE /hpf
[2021-10-19 09:56] LABS: Amphetamines Screen Urine Negative (Negative); Barbiturates Screen Urine Negative (Negative); Benzodiazepines Screen Urine Negative (Negative); Cocaine Screen Urine Negative (Negative); Opiate Screen Urine Negative (Negative); PCP Screen Urine Negative (Negative); THC Screen Urine Negative (Negative)
[2021-10-19 09:57] LABS: Thyroid Stimulating Hormone 3.65 uIU/mL (0.27-4.20)
[2021-10-19 09:59] LABS: Potassium, Radom Urine 35 mmol/L; Urine Random Chloride 112 mmol/L; Urine Random Sodium 100 mmol/L
[2021-10-19 12:07] LABS: Alanine Aminotransferase 27 U/L (0-41); Albumin Level 3.5 g/dL (3.5-5.2); Alkaline Phosphatase 86 IU/L (40-130); Anion Gap 19.1 (5-19); Aspartate Amino Transferase 13 U/L (0-40); Blood Urea Nitrogen 35 mg/dL (8-23); Calcium 7.6 mg/dL (8.5-10.5); Carbon Dioxide 19 mmol/L (22-29); Chloride 111 mmol/L (98-107); Globulin 2.7 g/dL (1.3-4.6); Glucose 247 mg/dL (65-115); Osmolality Calculated 312 mOsm/kg (285-295); Potassium 6.1 mmol/L (3.5-5.1); Sodium 143 mmol/L (136-145); Total Bilirubin 0.2 mg/dL (0.15-1.2); Total Protein 6.2 g/dL (6.6-8.7)
--- NOTE | 2021-10-19 12:42 | PC.NURSE ---
pts blood glucose; 236
--- NOTE | 2021-10-19 13:01 | PC.NURSE ---
Pt c/o overall pain and since placing the porter cath, pt requesting his own pain medication. Pt also states his penis hurts and is burning and he would like to take the porter out, pee and put it back in. Dr. Guzman paged by Jackie, Dr. Guzman advised to go ahead and give pt one of his own pain tablets if this RN is unable to get the medication out of [facility]. This RN called [pharmacy again to request they come down and look at pts scheduled medications in the [facility] as this RN has been unablke to pull certain medications. Pharmacy advised they will be down shortly.
--- NOTE | 2021-10-19 13:28 | P.PN_ITS ---
Subjective Subjective: Interval history: Admitted overnight. Patient seen in ER. Blood pressure on examination 150/70. Patient is on 4 L oxygen supplementation saturating 96%. During examination brought down to 3 L. Denies any nausea, vomiting, headache currently. Complaining of difficulty in breathing which has been worsening over last few months acutely over the last few weeks. Complai ana of shortness of breath on exertion and on laying down. Denies any PND. States no changes in medications recently. States compliant. States home blood pressure usually running around 160/90 mmHg. Vitals/I&O/Wt Last Vital Signs Temp 97.5 F L 10/19/21 01:17 Pulse 117 H 10/19/21 10:33 Resp 20 H 10/19/21 10:33 BP 158/98 10/19/21 10:33 Pulse Ox 92 10/19/21 10:33 10/18/21 10/19/21 10/19/21 22:59 06:59 14:59 Intake Total 800 / 800 Balance 800 / 800 Weight last 48 hrs Weight 106.594 kg Physical Exam Narrative: EXAM NARRATIVE: General: No acute distress, AO x3, morbidly obese HEENT: PERRLA, pupils bilaterally equal and reactive, pallors not present Chest: Normal vesicular breath sounds, bilateral lower zone crackles and rhonchi present, equal good air entry bilaterally CVS: S1-S2 regular, pansystolic murmur at apex, no tachycardia, no gallops, no rubs Abdomen: Soft, nontender, no organomegaly, bowel sounds present Neuro: No focal deficits, no facial deformity, AO x3, power 5/5 in all limbs Extremities: 1+ B/L pitting edema up to bilateral knees Urinary Catheter Management^: Acosta: Cath Placed During This Visit: yes Urinary Catheter Date of Insertion: 10/19/21 Urinary Catheter Time of Insertion: 11:10 Data : 10/19/21 01:25 10/19/21 11:20 Micro: Microbiology 10/19/21 09:05 Bacterial Antigens - Final Urine Kidney 10/19/21 03:25 Blood Culture - Preliminary Blood SPECIMEN COLLECTED 10/19/21 03:00 Blood Culture - Preliminary Blood SPECIMEN COLLECTED A&P Assessment and plan (1) Hypertensive emergency: Status: Acute (2) Acute respiratory failure with hypoxemia: Status: Acute (3) Pulmonary edema: Status: Acute Qualifiers: Chronicity: acute Qualified Code(s): J81.0 - Acute pulmonary edema (4) COPD (chronic obstructive pulmonary disease): Status: Acute Qualifiers: COPD type: unspecified COPD Qualified Code(s): J44.9 - Chronic obstructive pulmonary disease, unspecified (5) NIKOLAY (acute kidney injury): Status: Acute (6) Hyperkalemia: Status: Acute Additional A&P Information Hypertensive emergency: Blood pressure on admission more than 200 mmHg. For now continue with home oral antihypertensives. Continue with amlodipine 10 mg daily, isosorbide dinitrate 30 mg daily, change metoprolol to Coreg 25 mg twice daily. For now hold off on lisinopril given NIKOLAY. Goal blood pressure less than 140/90 mmHg. Will uptitrate medications accordingly. Acute respiratory failure with hypoxemia: Most likely secondary to congestive heart failure. Given the symptoms cannot rule out pneumonia. COVID-19 PCR sent out from ER. Isolation precautions. Check sputum culture, urine Legionella, bacterial antigen, D-dimer, lower limb Dopplers. IV Lasix 40 mg twice daily. Strict input output charting, daily weights, Acosta catheterization. Fluid restriction up to [address] chest without contrast. For now continue with treatment for community-acquired pneumonia with azithromycin and ceftriaxone. History of COPD: Duo nebs and budesonide. Hold off on steroids for now. NIKOLAY: Baseline CKD. Baseline creatinine up to 1.4. As high as 1.8 in 2018. Most likely a combination of CRS and multiple NSAIDs Medical reconciliation done for nephrotoxic drugs. High anion gap metabolic acidosis: Secondary to NIKOLAY. Hyperkalemia: Lasix as above. D50, insulin 10 units. Repeat BMP around 2 PM. If hyperkalemia not resolved with use Kayexalate. Telemetry. BPH: Continue with home dose of Flomax, Proscar. Out of bed to chair. Protonix OPD prophylaxis. Lovenox for DVT prophylaxis. Cardiac renal nondialysis diet. Attestations Medical Necessity Statement*: Requires further hospitalization for hypertensive emergency, hypoxic respiratory failure secondary to congestive hear t failure. Time Spent in Patient Care: Greater than 35 minutes (>than 50% of time spent in counselling and/or direct pt care on unit) . Coding Level of Care Code Acute Treasury Manager for [facility] Diagnoses Hypertensive emergency I16.1 Acute respiratory failure with hypoxemia J96.01 Pulmonary edema J81.0 Chronicity: acute COPD (chronic obstructive pulmonary disease) J44.9 COPD type: unspecified COPD NIKOLAY (acute kidney injury) N17.9 Hyperkalemia E87.5
--- NOTE | 2021-10-19 13:32 | CT_ITS ---
WS: [id number] CT CHEST TECHNIQUE: Noncontrast CT of the chest with coronal and sagittal reformatted images. CLINICAL INFORMATION: chf/pna COMPARISON: CT 7 31,018 DLP: 1008.[address] scans at [facility] use at least one of these dose optimization techniques: automated e xposure control; mA and/or kV adjustment per patient size (includes targeted exams where dose is matc hed to clinical indication); or iterative reconstruction. FINDINGS: Moderate chronic emphysematous changes. Small right greater than left pleural effusions with compress aleida atelectasis in the right greater than left lung base. Patchy infiltrates in the in the right grea ter than left lower lobes. Mid and upper lungs are well aerated. Air bronchograms in both lower lobes right greater than left. Aortic calcification. Coronary calcification. A few prominent anterior mediastinal and hilar lymph no lillian nonspecific but may be reactive. Sludge or tiny calculi visualized in the gallbladder. Adrenal gl ands are normal. Fatty atrophy of the pancreas. Hypertrophic changes thoracic spine. Chronic left rib fractures. CT/CT chest wo con [id number] IMPRESSION: 1. Small bilateral pleural effusions right greater than left with compressive atelectasis in the lung bases. 2. Patchy infiltrates in the right greater than left lower lobes. Recommend co rrelation for pneumonia. Air bronchograms in the lower lobes bilaterally. 3. A few prominent mediastinal and hilar lymph nodes nonspecific but likely re active. 4. Tiny amount of sludge or calculi visualized in the gallbladder.
[2021-10-19] MEDS: insulin lispro 100 unit/1 mL SUBCUT ×2 (13:33→21:23)
[2021-10-19] MEDS: oxyCODONE IR 30 mg Tablet PO ×2 (14:00→18:19)
[2021-10-19 14:19] LABS: Coronavirus Test Green County Not Detected
[2021-10-19] MEDS: ipratropium-albuterol 3 mL Neb INHALATION ×2 (14:45→20:34)
[2021-10-19] MEDS: isosorbide dinitrate 20 mg Tablet 30 MG PO ×3 (15:41→21:23)
[2021-10-19] MEDS: sodium polystyrene sulfonate 15 gm/60 mL Btl 30 GM PO (15:42)
[2021-10-19] MEDS: carvedilol 25 mg Tablet PO (17:07)
[2021-10-19] MEDS: ferrous gluconate 324 mg Tablet PO (17:07)
[2021-10-19] MEDS: sennosides-docusate Tablet 1 TAB PO (17:07)
[2021-10-19 17:38] LABS: Anion Gap 16.3 (5-19); Blood Urea Nitrogen 35 mg/dL (8-23); Calcium 8.4 mg/dL (8.5-10.5); Carbon Dioxide 23 mmol/L (22-29); Chloride 109 mmol/L (98-107); Glucose 57 mg/dL (65-115); Osmolality Calculated 302 mOsm/kg (285-295); Potassium 5.3 mmol/L (3.5-5.1); Sodium 143 mmol/L (136-145)
[2021-10-19 17:46] LABS: Glucose Point of Care 80 mg/dL (70-110)
--- NOTE | 2021-10-19 17:59 | PC.NURSE ---
Patient's home med Pt has 12 tabs of 30 mg oxy IR in the bottle. counted upon arrival w/ ER nurse and staff nurse. 1700 pm- pt family arrived. pt's bottle of oxy IR is given to his .
[2021-10-19] MEDS: phenazopyridine 100 mg Tablet PO (18:16)
[2021-10-19] MEDS: budesonide 0.5 mg/2 mL Neb INHALATION (20:34)
--- NOTE | 2021-10-19 21:01 | PC.NURSE ---
Shift Note 1438- Pt arrived from ER via stretcher. Pt is alert, orientedx4. Denies any SOB or pain at this time. Frequent safety and comfort rounds continue. Orders and/or nursing care completed as indicated. Patient monitored for response to intervention and treatment(s). Education provided includes Lasix and strict I and Os. Patient and/or admissions representative verbalizes understanding. Will continue to monitor.
[2021-10-19 21:22] LABS: Glucose Point of Care 177 mg/dL (70-110)
[2021-10-19 23:15] LABS: Anion Gap 17.1 (5-19); Blood Urea Nitrogen 40 mg/dL (8-23); Calcium 8.1 mg/dL (8.5-10.5); Carbon Dioxide 21 mmol/L (22-29); Chloride 108 mmol/L (98-107); Glucose 143 mg/dL (65-115); Osmolality Calculated 304 mOsm/kg (285-295); Potassium 5.1 mmol/L (3.5-5.1); Sodium 141 mmol/L (136-145)
[2021-10-20] VITALS (19 sets, daily range): BP systolic 152–175; BP diastolic 80–99; PULSE 82–123; RESP 15–25; TEMP 36.7; O2SAT 91–96
[2021-10-20] MEDS: ipratropium-albuterol 3 mL Neb INHALATION ×3 (02:31→20:20)
[2021-10-20 03:59] LABS: Basophils # 0.1 10^3/uL (0.0-0.1); Basophils % 0.4 %; Eosinophils # 0.3 10^3/uL (0.0-0.8); Hematocrit 29.6 % (42.0-52.0); Hemoglobin 8.8 g/dL (11.7-16.6); Lymphocytes # 1.6 10^3/uL (0.8-4.8); Mean Corpuscular HGB Conc 29.7 g/dL (30.0-36.0); Mean Corpuscular Hemoglobin 28.1 pg (28.0-34.0); Mean Corpuscular Volume 94.6 fl (80-94); Mean Platelet Volume 9.6 fL (7.4-10.4); Monocytes # 1.2 10^3/uL (0.2-0.9); Monocytes % 9.7 %; Neutrophils # 9.44 10^3/uL (1.8-7.7); Neutrophils % 74.5 %; Nucleated Red Blood Cells % 0 %; Platelet Count 323 10^3/cmm (130-400); Red Blood Count 3.13 10^6/uL (4.1-5.3); Red Cell Distribution Width 13.7 % (12.1-15.1); White Blood Count 12.7 10^3/uL (4.0-10.0)
[2021-10-20 04:10] LABS: Estmated Average Glucose 166; Hemoglobin A1C 7.4 % (4.0-6.0)
[2021-10-20 04:27] LABS: Chol HDL Ratio 3.05 mg/dL (1.0-5.00); Cholesterol 113 mg/dL (0-200); HDL Cholesterol 37 mg/dL (60-100); LDL Cholesterol Calculated 45 mg/dL (50-129); Triglycerides 157 mg/dL (0-150); VLDL Cholestrol Calculation 31 mg/dL (0-30)
[2021-10-20 04:30] LABS: Alanine Aminotransferase 20 U/L (0-41); Albumin Level 2.8 g/dL (3.5-5.2); Alkaline Phosphatase 71 IU/L (40-130); Anion Gap 13.2 (5-19); Aspartate Amino Transferase 9 U/L (0-40); Blood Urea Nitrogen 38 mg/dL (8-23); Calcium 7.7 mg/dL (8.5-10.5); Carbon Dioxide 26 mmol/L (22-29); Chloride 110 mmol/L (98-107); Globulin 2.6 g/dL (1.3-4.6); Glucose 115 mg/dL (65-115); Osmolality Calculated 308 mOsm/kg (285-295); Potassium 5.2 mmol/L (3.5-5.1); Sodium 144 mmol/L (136-145); Total Bilirubin 0.2 mg/dL (0.15-1.2); Total Protein 5.4 g/dL (6.6-8.7)
[2021-10-20] MEDS: cefTRIAXone 1,000 MG in sodium chloride 0.9% (plus) 50 ML 100 MG IV (06:07)
[2021-10-20] MEDS: enoxaparin 40 mg/0.4 mL Syringe SUBCUT (06:07)
[2021-10-20] MEDS: azithromycin 500 MG in sodium chloride 0.9% 250 ML 250 MG PO (06:52)
[2021-10-20 07:09] LABS: Glucose Point of Care 107 mg/dL (70-110)
[2021-10-20] MEDS: oxyCODONE IR 30 mg Tablet PO ×3 (07:23→18:23)
--- NOTE | 2021-10-20 07:35 | PC.NURSE ---
Patient c/o of pain and discomfort to porter catheter site. Porter is draining normally. Dr. Guzman notified. Will continue to monitor.
[2021-10-20] MEDS: budesonide 0.5 mg/2 mL Neb INHALATION ×2 (08:23→20:20)
[2021-10-20 09:01] LABS: Glucose Point of Care 236 mg/dL (70-110)
--- NOTE | 2021-10-20 09:05 | PC.NURSE ---
Pt lying in bed resting and talking to family. Pt resp even and non-labored no distress or sob noted. Pt had no c/o pain or discomfort the present time. No needs voiced. Family at bedside. Call light in reach. Will cont to monitor.
[2021-10-20] MEDS: isosorbide dinitrate 20 mg Tablet 30 MG PO (09:45)
[2021-10-20] MEDS: finasteride 5 mg Tablet PO (09:46)
[2021-10-20] MEDS: tamsulosin 0.4 mg Capsule PO ×2 (09:46→17:54)
[2021-10-20] MEDS: FUROsemide 10 mg/mL SDV 4mL 40 MG IVP ×2 (09:47→17:53)
[2021-10-20] MEDS: sennosides-docusate Tablet 1 TAB PO ×2 (09:47→17:55)
[2021-10-20] MEDS: ferrous gluconate 324 mg Tablet PO ×2 (09:47→17:55)
[2021-10-20] MEDS: amlodipine 10 mg Tablet PO (09:48)
[2021-10-20] MEDS: phenazopyridine 100 mg Tablet PO ×3 (09:48→17:54)
[2021-10-20] MEDS: carvedilol 25 mg Tablet PO ×2 (09:48→17:54)
[2021-10-20] MEDS: pantoprazole 40 mg SDV IVP ×2 (10:16→17:54)
[2021-10-20] MEDS: hyDRALAzine 25 mg Tablet PO ×3 (10:16→19:51)
[2021-10-20 11:02] LABS: NT Pro B Type Natriuretic Pept 3994 pg/mL (0-125)
[2021-10-20 11:19] LABS: Glucose Point of Care 282 mg/dL (70-110)
[2021-10-20] MEDS: insulin lispro 100 unit/1 mL SUBCUT (13:04)
[2021-10-20] MEDS: metOLazone 5 MG Tablet PO (13:04)
[2021-10-20 13:13] LABS: Urine Creatinine 21 mg/dL (39-259)
--- NOTE | 2021-10-20 14:22 | P.PN_ITS ---
Subjective Subjective: Interval history: No acute event overnight. Patient states he is feeling better. Denies any nausea, vomiting, headache. Complaining of occasional discomfort because of Acosta catheter. Discussed that Acosta can be taken out if needed. Patient states for now he is comfortable and is okay with keeping the Acosta. Denies any headache or dizziness. Vitals/I&O/Wt Last Vital Signs Temp 98.1 F 10/20/21 02:47 Pulse 123 H 10/20/21 12:00 Resp 18 10/20/21 13:03 BP 152/99 10/20/21 12:00 Pulse Ox 94 10/20/21 13:03 10/19/21 10/20/21 10/20/21 22:59 06:59 14:59 Intake Total 350 / 650 Output Total 2200 / 2200 475 / 2675 2200 / 2200 Balance -2200 / -1900 -125 / -2025 -2200 / -2200 Weight last 48 hrs Weight 118.841 kg Weight 106.594 kg Physical Exam Narrative: EXAM NARRATIVE: General: No acute distress, AO x3, morbidly obese HEENT: PERRLA, pupils bilaterally equal and reactive, pallors not present Chest: Normal vesicular breath sounds, bilateral lower zone crackles and rhonchi present, equal good air entry bilaterally CVS: S1-S2 regular, pansystolic murmur at apex, no tachycardia, no gallops, no rubs Abdomen: Soft, nontender, no organomegaly, bowel sounds present Neuro: No focal deficits, no facial deformity, AO x3, power 5/5 in all limbs Extremities: 1+ B/L pitting edema up to bilateral knees Urinary Catheter Management^: Acosta: Cath Placed During This Visit: yes Reason for Continuing Indwelling Catheter: Acute Urinary Retention or Obstruction Urinary Catheter Date of Insertion: 10/19/21 Urinary Catheter Time of Insertion: 11:10 Data : 10/20/21 03:42 10/20/21 03:42 Micro: Microbiology 10/19/21 03:25 Blood Culture - Preliminary Blood NEGATIVE TO DATE 10/19/21 03:00 Blood Culture - Preliminary Blood NEGATIVE TO DATE 10/19/21 09:05 Legionella Urinary Antigen - Final Urine Catheterized 10/19/21 09:05 Bacterial Antigens - Final Urine Kidney A&P Assessment and plan (1) Uncontrolled hypertension: Status: Acute (2) Acute respiratory failure with hypoxemia: Status: Acute (3) Pulmonary edema: Status: Acute Qualifiers: Chronicity: acute Qualified Code(s): J81.0 - Acute pulmonary edema (4) COPD (chronic obstructive pulmonary disease): Status: Acute Qualifiers: COPD type: unspecified COPD Qualified Code(s): J44.9 - Chronic obstructive pulmonary disease, unspecified (5) NIKOLAY (acute kidney injury): Status: Acute (6) Hyperkalemia: Status: Acute (7) Diastolic CHF: Status: Acute (8) Hypertensive emergency: Resolved. Status: Acute Additional A&P Information Hypertensive emergency: Blood pressure on admission more than 200 mmHg. Resolved. Uncontrolled hypertension: For now continue with home oral antihypertensives. Continue with amlodipine 10 mg daily, isosorbide dinitrate 30 mg daily, Coreg 25 mg twice daily. For now hold off on lisinopril given NIKOLAY. Goal blood pressure less than 140/90 mmHg. Add hydralazine 25 mg 3 times daily. Hypoxia: Most likely secondary to congestive heart failure. Given the symptoms cannot rule out pneumonia. COVID-19 PCR negative. Urine Legionella, bacterial antigen negative. CT chest results appreciated. IV Lasix 40 mg twice daily. Add metolazone 5 mg daily. Strict input output charting, daily weights, Acosta catheterization. Fluid restriction up to 1500 cc. Echocardiogram done shows an EF of 55 to 60% with grade 1 diastolic dysfunction mild MR, trace MR, trace AI Given CT results cannot rule out pneumonia. Pro-Vaughn, urine Legionella, bacterial antigen negative. For now continue with ceftriaxone and azithromycin. History of COPD: Duo nebs and budesonide. Hold off on steroids for now. NIKOLAY: Baseline CKD. Baseline creatinine 1.3-1.8. Has been as high as 2.8 in 2018. Most likely a combination of CRS and multiple NSAIDs Medical reconciliation done for nephrotoxic drugs. Continue to monitor. High anion gap metabolic acidosis: Resolved. Hyperkalemia: Resolving. Telemetry. BPH: Continue with home dose of Flomax, Proscar. Out of bed to chair. Protonix for PUD prophylaxis. Lovenox for DVT prophylaxis. Cardiac renal nondialysis diet. Plan for the day: Add hydralazine for better blood pressure control. Continue with IV diuresis. Target 1.5 to 2 L negative. Out of bed to chair. Continue to monitor BMP daily. Add metolazone. Wean oxygen supplementation keeping saturation over 90. Attestations Medical Necessity Statement*: Requires further hospitalization for management of diastolic heart failure, NIKOLAY on CKD, uncontrolled hypertension. Time Spent in Patient Care: Greater than 35 minutes (>than 50% of time spent in counselling and/or direct pt care on unit) . 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
[2021-10-20 16:51] LABS: Glucose Point of Care 76 mg/dL (70-110)
[2021-10-20 20:34] LABS: Glucose Point of Care 154 mg/dL (70-110)
[2021-10-21] VITALS (20 sets, daily range): BP systolic 138–177; BP diastolic 77–96; PULSE 81–104; RESP 14–26; TEMP 36.8–37.4; O2SAT 90–98
[2021-10-21] MEDS: oxyCODONE IR 30 mg Tablet PO ×4 (01:48→21:19)
--- NOTE | 2021-10-21 01:52 | PC.NURSE ---
Dr. Echevarria notified of patient asking for a muscle relaxer for muscle cramps.
[2021-10-21] MEDS: ipratropium-albuterol 3 mL Neb INHALATION ×4 (03:14→20:51)
[2021-10-21] MEDS: cefTRIAXone 1,000 MG in sodium chloride 0.9% (plus) 50 ML 100 MG IV (05:43)
[2021-10-21] MEDS: enoxaparin 40 mg/0.4 mL Syringe SUBCUT (05:44)
[2021-10-21] MEDS: azithromycin 500 MG in sodium chloride 0.9% 250 ML 250 MG PO (06:19)
--- NOTE | 2021-10-21 06:23 | PC.NURSE ---
Dr. Guzman notified of patient asking for his eyedrops that he takes at home.
[2021-10-21 06:36] LABS: Glucose Point of Care 123 mg/dL (70-110)
--- NOTE | 2021-10-21 07:44 | PC.NURSE ---
Pt lying in bed resting with eyes closed. Resp even and non-labored no distress or sob noted. Pt had no c/o pain or discomfort at the present time. No needs voiced. Call light in reach. Will cont to monitor.
--- NOTE | 2021-10-21 07:56 | PC.NURSE ---
Patient just had blood drawn, BP will be rechecked in 30 minutes.
[2021-10-21 08:23] LABS: Basophils # 0.1 10^3/uL (0.0-0.1); Basophils % 0.5 %; Eosinophils # 0.4 10^3/uL (0.0-0.8); Eosinophils % 3.2 %; Hematocrit 33.3 % (42.0-52.0); Lymphocytes # 1.8 10^3/uL (0.8-4.8); Lymphocytes % 13.5 %; Mean Corpuscular Hemoglobin 28.2 pg (28.0-34.0); Mean Corpuscular Volume 93.8 fl (80-94); Mean Platelet Volume 10.2 fL (7.4-10.4); Monocytes # 1.2 10^3/uL (0.2-0.9); Monocytes % 9.2 %; Neutrophils % 73.1 %; Nucleated Red Blood Cells % 0 %; Platelet Count 379 10^3/cmm (130-400); Red Blood Count 3.55 10^6/uL (4.1-5.3); Red Cell Distribution Width 13.3 % (12.1-15.1)
[2021-10-21 08:50] LABS: Alanine Aminotransferase 16 U/L (0-41); Albumin Level 3.1 g/dL (3.5-5.2); Alkaline Phosphatase 79 IU/L (40-130); Anion Gap 14.9 (5-19); Aspartate Amino Transferase 9 U/L (0-40); Blood Urea Nitrogen 33 mg/dL (8-23); Calcium 8.6 mg/dL (8.5-10.5); Carbon Dioxide 29 mmol/L (22-29); Chloride 101 mmol/L (98-107); Globulin 2.5 g/dL (1.3-4.6); Glomerular Filtration Rate 35.9 mL/min (90-130); Glucose 126 mg/dL (65-115); Osmolality Calculated 299 mOsm/kg (285-295); Potassium 4.9 mmol/L (3.5-5.1); Sodium 140 mmol/L (136-145); Total Bilirubin 0.2 mg/dL (0.15-1.2); Total Protein 5.6 g/dL (6.6-8.7)
[2021-10-21] MEDS: phenazopyridine 100 mg Tablet PO ×3 (09:24→17:09)
[2021-10-21] MEDS: finasteride 5 mg Tablet PO (09:25)
[2021-10-21] MEDS: sennosides-docusate Tablet 1 TAB PO ×2 (09:25→17:09)
[2021-10-21] MEDS: metOLazone 5 MG Tablet PO ×2 (09:25→11:40)
[2021-10-21] MEDS: ferrous gluconate 324 mg Tablet PO ×2 (09:25→17:10)
[2021-10-21] MEDS: hyDRALAzine 25 mg Tablet PO ×3 (09:25→11:43)
[2021-10-21] MEDS: pantoprazole 40 mg SDV IVP ×2 (09:26→17:11)
[2021-10-21] MEDS: tamsulosin 0.4 mg Capsule PO ×2 (09:26→17:10)
[2021-10-21] MEDS: amlodipine 10 mg Tablet PO (09:26)
[2021-10-21] MEDS: carvedilol 25 mg Tablet PO ×2 (09:26→17:11)
[2021-10-21] MEDS: FUROsemide 10 mg/mL SDV 4mL 40 MG IVP (09:26)
[2021-10-21] MEDS: budesonide 0.5 mg/2 mL Neb INHALATION ×2 (09:30→20:51)
[2021-10-21 11:18] LABS: Glucose Point of Care 261 mg/dL (70-110)
[2021-10-21] MEDS: losartan 50 mg Tablet 25 MG PO (11:40)
[2021-10-21] MEDS: insulin lispro 100 unit/1 mL SUBCUT ×2 (12:07→21:20)
--- NOTE | 2021-10-21 14:15 | P.PN_ITS ---
Subjective Subjective: Interval history: PressureNo acute events overnight. Patient has remained hemodynamically stable. States he is doing a lot better. Denies any nausea, vomiting, headache. Documented urine output in last 24 hours around 6 L. Vitals/I&O/Wt Last Vital Signs Temp 98.5 F 10/21/21 07:49 Pulse 93 10/21/21 12:00 Resp 16 10/21/21 12:00 BP 138/96 10/21/21 12:00 Pulse Ox 90 10/21/21 12:00 10/20/21 10/21/21 10/21/21 22:59 06:59 14:59 Intake Total 250 / 500 350 / 850 900 / 900 Output Total 1875 / 4075 1900 / 5975 2400 / 2400 Balance -1625 / -3575 -1550 / -5125 -1500 / -1500 Weight last 48 hrs Weight 116.029 kg Weight 118.841 kg Physical Exam Narrative: EXAM NARRATIVE: General: No acute distress, AO x3, morbidly obese HEENT: PERRLA, pupils bilaterally equal and reactive, pallors not present Chest: Normal vesicular breath sounds, bilateral lower zone crackles and rhonchi present, equal good air entry bilaterally CVS: S1-S2 regular, pansystolic murmur at apex, no tachycardia, no gallops, no rubs Abdomen: Soft, nontender, no organomegaly, bowel sounds present Neuro: No focal deficits, no facial deformity, AO x3, power 5/5 in all limbs Extremities: 1+ B/L pitting edema up to bilateral knees Urinary Catheter Management^: Acosta: Cath Placed During This Visit: yes Reason for Continuing Indwelling Catheter: Accurate Measurement of Urinary Output in Critically Ill Patients Urinary Catheter Date of Insertion: 10/19/21 Urinary Catheter Time of Insertion: 11:10 Data : 10/21/21 07:53 10/21/21 07:53 Micro: Microbiology 10/20/21 23:41 Occult Blood (FIT) - Final Stool - Stool Aspirate A&P Assessment and plan (1) Uncontrolled hypertension: Status: Acute (2) Acute respiratory failure with hypoxemia: Status: Acute (3) Pulmonary edema: Status: Acute Qualifiers: Chronicity: acute Qualified Code(s): J81.0 - Acute pulmonary edema (4) COPD (chronic obstructive pulmonary disease): Status: Acute Qualifiers: COPD type: unspecified COPD Qualified Code(s): J44.9 - Chronic obstructive pulmonary disease, unspecified (5) NIKOLAY (acute kidney injury): Status: Acute (6) Hyperkalemia: Status: Acute (7) Diastolic CHF: Status: Acute (8) Hypertensive emergency: Resolved. Status: Acute Additional A&P Information Hypertensive emergency: Blood pressure on admission more than 200 mmHg. Re solved. Uncontrolled hypertension: Better controlled but still mildly elevated. Goal blood pressure less than 140/90 mmHg. Continue with amlodipine 10 mg, isosorbide dinitrate 30 mg daily, Coreg 25 mg twice daily. Increase hydralazine to 50 mg 3 times a day, and losartan 25 mg daily. Hypoxia: Most likely secondary to congestive heart failure. Given the symptoms cannot rule out pneumonia. COVID-19 PCR negative. Urine Legionella, bacterial antigen negative. CT chest results appreciated. IV Lasix 40 mg twice daily. Metolazone for 1 more day.. Strict input output charting, daily weights, Acosta catheterization. Fluid restriction up to 1500 cc. Echocardiogram done shows an EF of 55 to 60% with grade 1 diastolic dysfunction mild MR, trace MR, trace AI Given CT results cannot rule out pneumonia. Pro-Vaughn, urine Legionella, bacterial antigen negative. For now continue with ceftriaxone and azithromycin. Will finish a 5-day course. History of COPD: Duo nebs and budesonide. Hold off on steroids for now. Oxygen supplementation keeping saturation over 88%. NIKOLAY: Baseline CKD. Baseline creatinine 1.3-1.8. Has been as high as 2.8 in 2018. Most likely a combination of CRS and multiple NSAIDs. Improving. Medical reconciliation done for nephrotoxic drugs. Continue to monitor. High anion gap metabolic acidosis: Resolved. Hyperkalemia: Resolving. Telemetry. BPH: Continue with home dose of Flomax, Proscar. Out of bed to chair. Protonix for PUD prophylaxis. Lovenox for DVT prophylaxis. Cardiac renal nondialysis diet. Plan for the day: Further adjustment of antihypertensives. Increase hydralazine. Add losartan. Continue with IV diuresis. Try to wean oxygen s upplementation. DC catheter. Discharge planning: Plan to discharge home with possible oxygen tomorrow. Attestations Medical Necessity Statement*: Requires further hospitalization for management of uncontrolled hypertension, hypoxia secondary to diastolic heart failure Time Spent in Patient Care: Greater than 35 minutes (>than 50% of time spent in counselling and/or direct pt care on unit) . 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
[2021-10-21] MEDS: hyDRALAzine 25 mg Tablet 50 MG PO ×2 (15:50→21:20)
[2021-10-21] MEDS: FUROsemide 40 mg Tablet PO (15:51)
[2021-10-21 16:53] LABS: Glucose Point of Care 103 mg/dL (70-110)
--- NOTE | 2021-10-21 19:32 | PC.NURSE ---
Received report from LYNN Villagran. Patient resting in bed watching TV. Patient reports feeling much better and breathing easier. Discussed medication changes for better BP control. Patient verbalized complete understanding and made note of decreased BP. No distress observed. Will continue to monitor.
[2021-10-21 20:29] LABS: Glucose Point of Care 200 mg/dL (70-110)
[2021-10-22] VITALS (13 sets, daily range): BP systolic 103–160; BP diastolic 71–92; PULSE 81–114; RESP 14–20; TEMP 36.6–37.1; O2SAT 86–94
[2021-10-22] MEDS: ipratropium-albuterol 3 mL Neb INHALATION ×2 (02:48→08:35)
--- NOTE | 2021-10-22 04:03 | PC.NURSE ---
At ~0225 observed what appeared to be a 31 beat run of VTach. Patient denies any symptoms stating, I did not feel anything. Patient does report severe muscle cramps this night. VS as documented at 0303. Informed Dr Echevarria. No orders received at that time. Strips printed and placed in patient's chart.
[2021-10-22] MEDS: cefTRIAXone 1,000 MG in sodium chloride 0.9% (plus) 50 ML 100 MG IV (05:29)
[2021-10-22] MEDS: enoxaparin 40 mg/0.4 mL Syringe SUBCUT (05:30)
[2021-10-22] MEDS: azithromycin 500 MG in sodium chloride 0.9% 250 ML 250 MG IV (05:35)
[2021-10-22] MEDS: oxyCODONE IR 30 mg Tablet PO ×2 (05:40→11:26)
--- NOTE | 2021-10-22 05:47 | PC.NURSE ---
Shift Note Frequent safety and comfort rounds continue. Orders and/or nursing care completed as indicated. Patient monitored for response to intervention and treatment(s). Education provided includes lovenox. Patient verbalized complete understanding. Patient reports feeling better and wants to go home today. Patient continues to c/o severe muscle cramps this morning. Dr Echevarria requested a Mag level on him this morning which was added to morning labs. Explained to patient significance of this lab. Patient verbalized complete understanding. Will continue to monitor.
[2021-10-22 06:13] LABS: Alanine Aminotransferase 13 U/L (0-41); Albumin Level 3.3 g/dL (3.5-5.2); Alkaline Phosphatase 84 IU/L (40-130); Anion Gap 16.7 (5-19); Aspartate Amino Transferase 7 U/L (0-40); Blood Urea Nitrogen 38 mg/dL (8-23); Calcium 8.7 mg/dL (8.5-10.5); Carbon Dioxide 30 mmol/L (22-29); Chloride 97 mmol/L (98-107); Globulin 2.8 g/dL (1.3-4.6); Glomerular Filtration Rate 28.8 mL/min (90-130); Glucose 107 mg/dL (65-115); Magnesium 1.5 mg/dL (1.7-2.3); Osmolality Calculated 298 mOsm/kg (285-295); Potassium 4.7 mmol/L (3.5-5.1); Sodium 139 mmol/L (136-145); Total Bilirubin 0.2 mg/dL (0.15-1.2); Total Protein 6.1 g/dL (6.6-8.7)
[2021-10-22 06:41] LABS: Glucose Point of Care 132 mg/dL (70-110)
--- NOTE | 2021-10-22 07:53 | PC.SOCIAL ---
Pg 2 IMM Explained to pt Pg 2 IMM. No questions voiced. Provided pt a copy. Initialed, dated, & timed a copy & placed in chart.
[2021-10-22] MEDS: budesonide 0.5 mg/2 mL Neb INHALATION (08:35)
[2021-10-22] MEDS: hyDRALAzine 25 mg Tablet 50 MG PO ×2 (08:52→15:00)
[2021-10-22] MEDS: finasteride 5 mg Tablet PO (08:52)
[2021-10-22] MEDS: ferrous gluconate 324 mg Tablet PO (08:52)
[2021-10-22] MEDS: tamsulosin 0.4 mg Capsule PO (08:53)
[2021-10-22] MEDS: sennosides-docusate Tablet 1 TAB PO (08:53)
[2021-10-22] MEDS: isosorbide dinitrate 20 mg Tablet 30 MG PO (08:53)
[2021-10-22] MEDS: amlodipine 10 mg Tablet PO (08:53)
[2021-10-22] MEDS: carvedilol 25 mg Tablet PO (08:53)
[2021-10-22] MEDS: FUROsemide 40 mg Tablet PO ×2 (08:53→15:00)
[2021-10-22] MEDS: losartan 50 mg Tablet 25 MG PO (08:54)
[2021-10-22] MEDS: magnesium sulfate premix 2 GM/50 ML PIGGYBACK IV (11:10)
[2021-10-22] MEDS: phenazopyridine 100 mg Tablet PO (11:10)
[2021-10-22] MEDS: pantoprazole 40 mg SDV IVP (11:10)
--- NOTE | 2021-10-22 12:12 | PC.NURSE ---
pt wants to wait until he gets his pain pill and finished his lunch before porter catheter removal as ordered. urinal provided.
[2021-10-22 12:30] LABS: Glucose Point of Care 273 mg/dL (70-110)
--- NOTE | 2021-10-22 12:37 | PM.DCS ---
Discharge Providers Date of Admission: 10/19/21 03:02 Date of Discharge: October 22, 2021 Attending Provider at Admission: Sonya Echevarria MD Attending Provider at Discharge: Cody Guzman MD Primary Care Provider: Lev Gonzalez MD Diagnoses at Discharge Discharge Diagnosis (1) Uncontrolled hypertension: Status: Acute (2) Acute respiratory failure with hypoxemia: Status: Acute (3) Pulmonary edema: Status: Acute Qualifiers: Chronicity: acute Qualified Code(s): J81.0 - Acute pulmonary edema (4) COPD (chronic obstructive pulmonary disease): Status: Acute Qualifiers: COPD type: unspecified COPD Qualified Code(s): J44.9 - Chronic obstructive pulmonary disease, unspecified (5) NIKOLAY (acute kidney injury): Status: Acute (6) Hyperkalemia: Status: Acute (7) Diastolic CHF: Status: Acute (8) Hypertensive emergency: Status: Acute Reason for Visit Reason for Visit: SOB Hospital Course Hospital Course Uday Julien is a 66 year old male with a past medical history of hypertension, which is uncontrolled, baseline blood pressure ranges between 172 180 per patient, rheumatoid arthritis on NSAIDs, COPD, not normally on home oxygen chronic back pain, presenting to the emergency room today with shortness of breath progressing over the last 3 to 4 days. On presentation patient was found to have a saturation of high 70s and requiring up to 4 to 5 L oxygen supplementation with blood pressure running in high 200s. Imaging on admission was consistent with diffuse bilateral interstitial infiltrate secondary to possible flash pulmonary edema versus pneumonia. On admission patient had mild leukocytosis, elevated D-dimer with creatinine of 2.6 at baseline creatinine running from 1.4-1.8 but has been as high as 2.8 within the last 1 year with hyperkalemia and potassium of 6.1 on admission. Patient's proBNP was more than 3000. Patient was admitted to [facility] for further management of hypertensive emergency, hypoxia secondary to congestive heart failure and less likely from COPD exacerbation. Patient CT imaging was concerning for a possible pneumonia for which she was continued on treatment for community-acquired pneumonia. Blood cultures, sputum cultures remained negative. CTA could not be done because of acute kidney injury. Lower limb Dopplers were negative for any acute embolism. Echocardiogram was done which was consistent with an EF 55 to 60% with diastolic dysfunction. Patient was started on aggressive IV diuresis to which she responded well on the day of discharge he is overall 11 L negative. His oxygenation and breathing improved. Multiple antihypertensives were adjusted for difficult to control blood pressure since admission. Currently his blood pressure is a lot better controlled and is at target. Patient hospitalization was otherwise unremarkable other than one run of nonsustained V. tach which was self-limiting and asymptomatic most likely secondary to hypomagnesia which was repleted. Patient did not have any further arrhythmia. During hospitalization patient's creatinine plateaued with IV diuresis. Patient's care plan and discharge plan was discussed in detail with him. It was discussed that patient should be monitored for at least 24 more hours given his one episode of arrhythmia and to monitor his renal functions but he was desperate to be discharged and agreed to follow-up with his primary care provider and stock drier tender as directed. Patient is been discharged in hemodynamically stable condition on adjusted and antihypertensives and oral diuretics with advised to follow-up with his primary care provider within next 1 week for repeat BMP. He is also advised to follow-up with cardiology within next 2 weeks and to set up an appointment for event monitor as an outpatient. Physical Exam Narrative: EXAM NARRATIVE: General: No acute distress, AO x3, morbidly obese HEENT: PERRLA, pupils bilaterally equal and reactive, pallors not present Chest: Normal vesicular breath sounds, bilateral lower zone crackles and rhonchi present, equal good air entry bilaterally CVS: S1-S2 regular, pansystolic murmur at apex, no tachycardia, no gallops, no rubs Abdomen: Soft, nontender, no organomegaly, bowel sounds present Neuro: No focal deficits, no facial deformity, AO x3, power 5/5 in all limbs Extremities: 1+ B/L pitting edema up to bilateral knees Urinary Catheter Management^: Acosta: Cath Placed During This Visit: yes Reason for Continuing Indwelling Catheter: Acute Urinary Retention or Obstruction Urinary Catheter Date of Insertion: 10/19/21 Urinary Catheter Time of Insertion: 11:10 Discharge Data Data Completed and Pending: Completed Studies During Hospitalization Category Date Time Status CT chest wo con 7 1250 Routine Cat Scan 10/19/21 13:32 Completed XR chest 1V rich ble [id number] Stat Exams 10/19/21 01:21 [place] [id number] Urgent Ultrasound 10/19/21 09:01 Completed CV. echo complete * [id number] Routine Ultrasound 10/19/21 06:52 Completed US renal BI* [id number] Routine Ultrasound 10/19/21 06:52 Completed Pending at discharge Category Date Time Status Arterial Blood Ga s W/O Coox Stat Lab 10/19/21 03:01 Ordered Blood Culture Sta t Lab 10/19/21 03:25 Results Labs from last 24 hours 10/22/21 10/22/21 10/22/21 12:09 06:34 05:30 Sodium Potassium Chloride Carbon Dioxide Anion Gap BUN Creatinine GFR Calculation Glucose POC Glucose 273 H 132 H Calculated Osmolal ity Calcium Magnesium Cancelled Total Bilirubin AST ALT Alkaline Phosphata se Total Protein Albumin Globulin 10/22/21 10/21/21 10/21/21 05:30 20:25 16:38 Sodium 139 Potassium 4.7 Chloride 97 L Carbon Dioxide 30 H Anion Gap 16.7 BUN 38 H Creatinine 2.3 H GFR Calculation 28.8 L Glucose 107 POC Glucose 200 H 103 Calculated Osmolal ity 298 H Calcium 8.7 Magnesium 1.5 L Total Bilirubin 0.2 AST 7 ALT 13 Alkaline Phosphata se 84 Total Protein 6.1 L Albumin 3.3 L Globulin 2.8 Addt'l Data from Hospital Stay: Laboratory Results WBC 13.0 10^3/uL (4.0 -10.0) H 10/21/21 07:53 RBC 3.55 10^6/uL (4.1 -5.3) L 10/21/21 07:53 Hgb 10.0 g/dL (11.7-1 6.6) L 10/21/21 07:53 Hct 33.3 % (42.0-52.0 ) L 10/21/21 07:53 MCV 93.8 fl (80-94) 10/21/21 07:53 MCH 28.2 pg (28.0-34. 0) 10/21/21 07:53 MCHC 30.0 g/dL (30.0-3 6.0) 10/21/21 07:53 RDW 13.3 % (12.1-15.1 ) 10/21/21 07:53 Plt Count 379 10^3/cmm (130 -400) 10/21/21 07:53 MPV 10.2 fL (7.4-10.4 ) 10/21/21 07:53 Neut % (Auto) 73.1 % 10/21/21 07:53 Lymph % (Auto) 13.5 % 10/21/21 07:53 [place] % (Auto) 9.2 % 10/21/21 07:53 Eos % (Auto) 3.2 % 10/21/21 07:53 Baso % (Auto) 0.5 % 10/21/21 07:53 Neut # (Auto) 9.50 10^3/uL (1.8 -7.7) H 10/21/21 07:53 Lymph # (Auto) 1.8 10^3/uL (0.8- 4.8) 10/21/21 07:53 [place] # (Auto) 1.2 10^3/uL (0.2- 0.9) H 10/21/21 07:53 Eos # (Auto) 0.4 10^3/uL (0.0- 0.8) 10/21/21 07:53 Baso # (Auto) 0.1 10^3/uL (0.0- 0.1) 10/21/21 07:53 Nucleated RBC % (a uto) 0 % 10/21/21 07:53 Nucleated RBCs # 0.0 /100WBC 10/21/21 07:53 PT 13.40 SECONDS (12 .1-14.9) 10/19/21 01:25 INR 0.99 (0.8-1.2) 10/19/21 01:25 D-Dimer 1.24 ug/mIFEU (0- 0.59) H 10/19/21 01:25 Sodium 139 mmol/L (136-1 45) 10/22/21 05:30 Potassium 4.7 mmol/L (3.5-5 .1) 10/22/21 05:30 Chloride 97 mmol/L (98-107 ) L 10/22/21 05:30 Carbon Dioxide 30 mmol/L (22-29) H 10/22/21 05:30 Anion Gap 16.7 (5-19) 10/22/21 05:30 BUN 38 mg/dL (8-23) H 10/22/21 05:30 Creatinine 2.3 mg/dL (0.7-1. 2) H 10/22/21 05:30 GFR Calculation 28.8 mL/min (90-1 30) L 10/22/21 05:30 Glucose 107 mg/dL (65-115 ) 10/22/21 05:30 POC Glucose 273 mg/dL (70-110 ) H 10/22/21 12:09 Estimat Average Gl ucose 166 10/20/21 03:42 Hemoglobin A1c 7.4 % (4.0-6.0) H 10/20/21 03:42 Calculated Osmolal ity 298 mOsm/kg (285- 295) H 10/22/21 05:30 Calcium 8.7 mg/dL (8.5-10 .5) 10/22/21 05:30 Magnesium 1.5 mg/dL (1.7-2. 3) L 10/22/21 05:30 Magnesium Cancelled 10/22/21 05:30 Total Bilirubin 0.2 mg/dL (0.15-1 .2) 10/22/21 05:30 AST 7 U/L (0-40) 10/22/21 05:30 ALT 13 U/L (0-41) 10/22/21 05:30 Alkaline Phosphata se 84 IU/L (40-130) 10/22/21 05:30 Troponin T Baselin e 53 ng/L (0-15) H 10/19/21 01:25 Troponin T 120 Min [place] 57.30 ng/L (0-15) H 10/19/21 03:49 Delta Troponin T 4.30 ABS# (0-10) 10/19/21 03:49 Troponin T Hi Sens 6Hr 54.67 ng/L (0-15) H 10/19/21 08:26 Troponin T Hi Sens 6Hr Delta 1.67 ng/L (0-12) 10/19/21 08:26 NT-Pro-B Natriuret Pep 3994 pg/mL (0-125 ) H 10/20/21 03:42 Total Protein 6.1 g/dL (6.6-8.7 ) L 10/22/21 05:30 Albumin 3.3 g/dL (3.5-5.2 ) L 10/22/21 05:30 Globulin 2.8 g/dL (1.3-4.6 ) 10/22/21 05:30 Triglycerides 157 mg/dL (0-150) H 10/20/21 03:42 Cholesterol 113 mg/dL (0-200) 10/20/21 03:42 LDL Cholesterol, C alc 45 mg/dL (50-129) L 10/20/21 03:42 Total VLDL Cholest sharan 31 mg/dL (0-30) H 10/20/21 03:42 HDL Cholesterol 37 mg/dL (60-100) L 10/20/21 03:42 Cholesterol/HDL Ra sidney 3.05 mg/dL (1.0-5 .00) 10/20/21 03:42 Procalcitonin 0.08 ng/mL (0-0.5 ) 10/19/21 01:25 TSH 3.65 uIU/mL (0.27 -4.20) 10/19/21 01:25 Urine Color Yellow (Yellow) 10/19/21 09:05 Urine Appearance Clear (CLEAR) 10/19/21 09:05 Urine pH 5 (5-7) 10/19/21 09:05 Ur Specific Gravit y 1.015 (1.005-1.0 30) 10/19/21 09:05 Urine Protein 3+ (Negative) H 10/19/21 09:05 Urine Glucose (UA) Trace (Normal) H 10/19/21 09:05 Urine Ketones Negative (Negati ve) 10/19/21 09:05 Urine Blood Neg (Negative) 10/19/21 09:05 Urine Nitrate Negative (Negati ve) 10/19/21 09:05 Urine Bilirubin Neg (Negative) 10/19/21 09:05 Urine Urobilinogen Norm mg/dL (Negat aleida) 10/19/21 09:05 Ur Leukocyte Sarah ase Negative (Negati ve) 10/19/21 09:05 Urine RBC 0-4 /hpf (0-2) H 10/19/21 09:05 Urine WBC None /hpf (0-5) 10/19/21 09:05 Ur Squamous Epith Cells 0-4 /hpf (0-5) H 10/19/21 09:05 Amorphous Sediment Not Reportable 10/19/21 09:05 Urine Bacteria Trace /hpf (NONE) 10/19/21 09:05 Urine Mucus Trace /hpf 10/19/21 09:05 Ur Random Sodium 100 mmol/L 10/19/21 09:05 Ur Random Potassiu m 35 mmol/L 10/19/21 09:05 Ur Random Chloride 112 mmol/L 10/19/21 09:05 Urine Creatinine 21 mg/dL (39-259) L 10/20/21 12:11 Urine Opiates Scre en Negative ng/mL (N egative) 10/19/21 09:05 Ur Barbiturates Sc reen Negative ng/mL (N egative) 10/19/21 09:05 Ur Phencyclidine S crn Negative ng/mL (N egative) 10/19/21 09:05 Ur Amphetamines Sc reen Negative ng/mL (N egative) 10/19/21 09:05 U Benzodiazepines Scrn Negative ng/mL (N egative) 10/19/21 09:05 Urine Cocaine Scre en Negative ng/mL (N egative) 10/19/21 09:05 U Marijuana (THC) Screen Negative ng/mL (N egative) 10/19/21 09:05 Nasal/Oral COVID-1 9 PCR Not detected 10/19/21 06:38 SARS-CoV-2 Ag (Rap id) Negative (Negati ve) 10/19/21 01:41 Impressions Chest X-Ray 10/19/21 01:21 IMPRESSION: 1. Congestive heart failure. 2. Small bilateral pleural effusions. Radiation Dose CTDIVOL = (mGy): DLP = (mGy-cm) Renal Ultrasound 10/19/21 06:52 IMPRESSION: 1. No hydronephrosis in either kidney. 2. Bilateral echogenic kidneys can be seen with medical renal disease. 3. Small simple right lower pole renal cyst. 4. Normal bladder. Chest CT 10/19/21 13:32 IMPRESSION: 1. Small bilateral pleural effusions right greater than left with compressive atelectasis in the lung bases. 2. Patchy infiltrates in the right greater than left lower lobes. Recommend correlation for pneumonia. Air bronchograms in the lower lobes bilaterally. 3. A few prominent mediastinal and hilar lymph nodes nonspecific but likely reactive. 4. Tiny amount of sludge or calculi visualized in the gallbladder. Microbiology 10/20/21 23:41 Stool - Stool Aspirate Occult Blood (FIT) - Final 10/19/21 03:25 Blood Blood Culture - Preliminary NEGATIVE TO DATE 10/19/21 03:00 Blood Blood Culture - Preliminary NEGATIVE TO DATE 10/19/21 09:05 Urine Catheterized Legionella Urinary Antigen - Final 10/19/21 09:05 Urine Kidney Bacterial Antigens - Final Echocardiogram: CONCLUSIONS LV systolic function is normal with EF 55 to 60%. Diastolic function is abnormal. Left atrium is dilated. Mitral valve is thickened. Mildly increased gradients across mitral valve consistent with mild mitral stenosis. Trace mitral regurgitation. Aortic valve is thickened. Mild aortic stenosis. Trace aortic regurgitation. Compared to prior echocardiogram from 12/25/2018, patient has mild mitral stenosis Colin Monique MD (Electronically Signed) Final Date: 19 October 2021 Vitals: Last Vital Signs Temp 97.9 F 10/22/21 08:51 Pulse 114 H 10/22/21 08:51 Resp 19 H 10/22/21 11:26 BP 123/73 10/22/21 08:54 Pulse Ox 86 L 10/22/21 11:50 Discharge Plan Discharge Patient Disposition: Home Condition: Stable Prescriptions: New losartan 50 mg Tablet 25 mg PO DAILY 30 Days Qty: 15 RF: 0 furosemide 40 mg Tablet 40 mg PO BID@08,16 30 Days Qty: 60 RF: 0 carvedilol 25 mg Tablet 25 mg PO BID 30 Days Qty: 60 RF: 0 hydralazine 25 mg Tablet 50 mg PO TID 30 Days Qty: 180 RF: 0 ferrous gluconate 324 mg (37.5 mg iron) Tablet 324 mg PO BIDWM 30 Days Qty: 30 RF: 0 Protonix 40 mg tablet,delayed release (DR/EC) 40 mg PO QAM 28 Days Qty: 28 RF: 0 Continued oxycodone 30 mg tablet 30 mg PO .5 TIMES A DAY PRN (Reason: pain) 30 Days Qty: 150 RF: 0 tamsulosin [Flomax] 0.4 mg capsule 0.4 mg PO BID RF: 0 amlodipine 10 mg tablet 10 mg PO DAILY RF: 0 indomethacin 50 mg capsule 100 mg PO BID RF: 0 pantoprazole [Protonix] 40 mg tablet,delayed release (DR/EC) 40 mg PO BID RF: 0 finasteride 5 mg tablet 5 mg PO DAILY RF: 0 atorvastatin 10 mg tablet 10 mg PO DAILY RF: 0 isosorbide mononitrate 30 mg tablet extended release 24 hr 30 mg PO DAILY RF: 0 prednisolone acetate 1 % drops,suspension 1 drp ophthalmic (eye) BEDTIME RF: 0 Vitamin C 500 mg Tablet 500 mg PO DAILY RF: 0 albuterol sulfate 90 mcg/actuation HFA aerosol inhaler 2 puff INHALATION Q4H PRN (Reason: Shortness Of Breath) RF: 0 Changed glimepiride 2 mg tablet 2 mg PO BID Qty: 0 RF: 0 Discontinued metoprolol tartrate 50 mg tablet 50 mg PO BID RF: 0 lisinopril 40 mg tablet 40 mg PO DAILY RF: 0 metformin 1,000 mg tablet 1,000 mg PO BID RF: 0 Discharge Orders: Discharge Order (Routine); Ordered 10/22/21 Ordered By: Cody Guzman Other Ambulatory Orders: [place] cardiac event monitor (Routine) Timeframe: 1 Week Facility: [facility] - Location: Cardiac Diagnostic Laboratory Ordered By: Cody Guzman DME: Oxygen (Order) Location: None Selected Ordered By: Cody Guzman [facility]: [facility] [Outside] Colin Monique M.D [Physician] - 2 weeks Lev Gonzalez MD [Primary Care Provider] - 4-7 days (Repeat BMP Carson Aldana will be calling to schedule a hospital followup with Dr. Gonzalez to be seen in 4 to 7 days. If you don't hear from them by Saturday afternoon, please give them a call. Thank you) Discharge Diet: Cardiac, Diabetic and Low Salt Patient Instructions: Furosemide (By mouth) (Lasix), Hydralazine (By mouth) (Apresoline), Losartan (By mouth), Carvedilol (By mouth), Pantoprazole (By mouth) (Protonix), Ascorbic Acid/Cyanocobalamin/Ferrous Fumarate (By mouth), Opioid Safety Activity Restrictions/Additional Instructions: Please take low-salt diabetic diet. Fluid restriction up to 1500 cc/day. Multiple antihypertensives have been adjusted. Instead of metoprolol take Coreg 25 mg twice daily, instead of lisinopril take losartan 25 mg daily. Hydralazine 50 mg 3 times a day has been added to your medication list. Continue taking amlodipine as before. Take Lasix 40 mg twice daily. Hold metformin. Increase Glimperide to twice daily. Please follow-up with your primary care provider within next 1 week for repeat BMP. Please follow-up with cardiology within next 2 weeks. Please call the office to arrange for an event monitor. Discharge Attestations Time Spent in Discharge Care*: greater than 30 min Specific Discharge Activities: educating patient, discussing with pcp/other providers, discussing with patient case coordinator/social workers/dc planners, documenting/other paperwork and evaluating patient/reviewing data Status at Discharge: Cognitive status at discharge: cognitively intact, Behavioral status at discharge: cooperative, Functional status at discharge: independent ambulation Overall status at discharge: patient is back to baseline Quality Metrics Clinical Quality Measures During this hospital stay, did patient experience: None Coding Level of Care Code Acute Chg DC note Diagnoses Uncontrolled hypertension I10 Acute respiratory failure with hypoxemia J96.01 Pulmonary edema J81.0 Chronicity: acute COPD (chronic obstructive pulmonary disease) J44.9 COPD type: unspecified COPD NIKOLAY (acute kidney injury) N17.9 Hyperkalemia E87.5 Diastolic CHF I50.30 Hypertensive emergency I16.1
[2021-10-22] MEDS: insulin lispro 100 unit/1 mL SUBCUT (13:21)
--- NOTE | 2021-10-22 16:15 | PC.NURSE ---
Discharge Note Patient discharged to home with oxygen via wheelchair accompanied by son. Discharge instructions reviewed with patient and/or surgical sales representative. Mobile pharmacy medications and/or prescriptions provided. Belongings/home medications returned.
== END 2021-10-22 16:15 | disposition home or self-care (01) | DRG 291 ==
LOC: ER 04:03 → ER IP 05:47 → CSU 13:20
PROVIDERS: Admitting Provider Student in an Organized Health Care Education/Training Program; Emergency Provider Emergency Medicine; PCP Family Medicine; Visit Provider Student in an Organized Health Care Education/Training Program
DX: I11.0 Hypertensive heart disease with heart failure (principal); J96.01 Acute respiratory failure with hypoxia; J18.9 Pneumonia, unspecified organism; I50.33 Acute on chronic diastolic (congestive) heart failure; I16.1 Hypertensive emergency; N17.9 Acute kidney failure, unspecified; E87.2 Acidosis; J44.9 Chronic obstructive pulmonary disease, unspecified; E87.5 Hyperkalemia; E83.42 Hypomagnesemia; M96.1 Postlaminectomy syndrome, not elsewhere classified; M06.9 Rheumatoid arthritis, unspecified; G89.29 Other chronic pain; Z87.891 Personal history of nicotine dependence; Z79.891 Long term (current) use of opiate analgesic
CPT/HCPCS: 36415; 36416; 51702; 71045; 71250; 76770; 80048; 80053; 80061; 80306; 81001; 82274; 82436; 82570; 82962; 83036; 83735; 83880; 84133; 84145; 84300; 84443; 84484; 85025; 85378; 85610; 86403; 87040; 87426; 87449; 87635; 93005; 93306; 93970; 94640; 94664; 96372; 99291; C9113; J0360; J0456; J0696; J1650; J1815; J1940; J3475; J3490; J7040; J7050; J7611; J7626

== ENCOUNTER 2021-12-22 10:38 | Inpatient (IN) | payer MEDICARE, SELFPAY ==
[2021-12-22 10:55] VITALS: BP 118/74; PULSE 82; TEMP 36.7; O2SAT 86; BMI 32.1
[2021-12-22 11:14] VITALS: PULSE 83; RESP 19; O2SAT 96
--- NOTE | 2021-12-22 11:27 | W.ED.WEAKNES ---
HPI - Weakness General: Chief complaint: ER Hold Stated complaint: Weakness, R arm swelled, O2 mid 90s Time Seen by Provider: 12/22/21 10:51 History of Present Illness: Mr. Julien is a 66 old gentleman with complex past medical history including hypertension, hyperlipidemia, diastolic heart failure who presents emergency department due to generalized symptoms. He reports 1 week of subacute onset generalized weakness without focality. He endorses difficulty ambulating at this point. Course has worsened and now intensity of symptoms is severe. He denies associated infectious symptoms. He has been eating and drinking normally. He does have mild worsening shortness of breath, he has chronic hypoxic respiratory failure with baseline oxygen of 4 L. In addition approximately 1 week ago he noticed bilateral upper and lower extremity twitching. He denies history of liver disease or similar episodes in the past. This is also worsened and makes it difficult for him to ambulate. No other specific changes in health, medication, exacerbating relieving factors identified. Onset (ago): day(s) Duration: constant and progressively worsening Location: generalized Severity: severe Quality: other Relieving factors: none Exacerbating factors: none Review of Systems General: Reports: 10 or more systems reviewed and unremarkable except in HPI and below PFSH ED PFSH: Medical History Atrial tachycardia Chronic low back pain Chronic SI joint pain CKD (chronic kidney disease) COPD (chronic obstructive pulmonary disease) Degeneration of lumbar intervertebral disc Diastolic CHF Encounter for long-term use of opiate analgesic Hypertensive emergency Long-term use of high-risk medication Opioid contract exists Postlaminectomy syndrome, not elsewhere classified Spinal stenosis, lumbar region with neurogenic claudication Spondylosis without myelopathy or radiculopathy, lumbosacral region Uncontrolled hypertension Surgical History History of lumbar laminectomy for spinal cord decompression Dr. Srivastava 03/28/17: Left L4-L5, L5-S1 laminectomy,discectomy,foraminotomy History of tonsillectomy S/P knee surgery right S/P shoulder surgery Left Status post hemilaminotomy 06/17/17 Dr. Srivastava: Left L4-L5 hemilaminotomy/discectomy/ foraminotomy. reexploration Family History Mother Hypertension mother at age 60 of c.h.f. Social History (Updated 12/22/21 @ 18:08 by Sam Santos MD) Smoking and tobacco status: former smoker Quit status (tobacco): has quit using tobacco Second hand smoke exposure: No Smoking risk assessment/counseling performed?: No Alcohol intake: former Desire information about alcohol rehabilitation?: No Counseling given: Yes Substance/Drug Use: never Desire information about substance/drug rehabilitation?: No Counseling given: No Adopted: No Caregiver/support person: Yes (TO ) Lives independently: Yes Household members: spouse Marital status: History of recent travel: No Physical Exam Const: COMMON NORMALS: alert GENERAL APPEARANCE: cooperative, well developed and ill appearing HENMT: COMMON NORMALS: normocephalic and atraumatic HEAD & SCALP: normocephalic and atraumatic OTHER: Right eye clear drainage, prosthesis Eye: COMMON NORMALS: conjunctivae normal CONJUNCTIVA: Yes conjunctivae normal SCLERA: sclerae normal Neck/C-Spine: COMMON NORMALS: supple and no meningeal signs GENERAL: Yes trachea midline Resp: COMMON NORMALS: normal respiratory effort and clear to auscultation bilaterally EFFORT & INSPECTION: Yes able to speak in complete sentences AUSCULTATION: clear to auscultation bilaterally Cardio: COMMON NORMALS: regular rate and regular rhythm RATE: regular rate RHYTHM: regular rhythm GI: COMMON NORMALS: Soft to palpation PALPATION: Yes Soft to palpation and No Tenderness to palpation present (GI) PERCUSSION: normal to percussion Extremity: GENERAL: Yes normal exam except as noted and No edema Neuro: COMMON NORMALS: moves all extremities SENSORIUM/ORIENTATION: Yes alert and No Orientation impaired MENINGEAL SIGNS: Yes no meningeal signs OTHER: Generalized weakness upper and lower extremities. Twitching of mostly proximal muscle groups intermittently. 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 Psych: COMMON NORMALS: mental status grossly normal and Normal thought process present THOUGHT PROCESS: Normal thought process present Procedures Lumbar Puncture Time Out Performed: Yes Patient Position: left lateral decubitus Skin Prep: 0.5% Chlorhexidine/Alcohol Local Anesthetic: lidocaine 1% and with epi Amount of anesthesia used (mL): 8 Spinal Needle Gauge: 20G Interspace Used: L3-L4 Fluid Initially Obtained: clear Complications: none Course ED course: - Patient was seen and evaluated by me at bedside - Patient placed on cardiac monitors, IV access obtained - Initial evaluation notable for exam as above, ill, new oxygen requirement and patient developing respiratory distress and hypoxemia when oxygen removed -Fluids given - Labs notable for marked leukocytosis, near baseline normocytic anemia. Metabolic panel with hyponatremia, hyperkalemia, NIKOLAY with elevated BUN and evidence of dehydration. Ammonia is elevated. Procalcitonin 8 CRP elevated - Imaging notable for no acute finding on chest x-ray. CT head negative for acute pathology. Given marked leukocytosis with evidence of increased procalcitonin and positive sirs criteria without apparent source of infection CT imaging is warranted. No acute abnormality identified on CT imaging as source of infection. - Antibiotics and fluids given. - Given neurologic symptoms in combination with positive SIRS and elevated procalcitonin lumbar puncture was performed after consent obtained Patient tolerated procedure well. - Upon serial reexamination after treatment the patient was similar - Based on patient history, evaluation, labs, and imaging as interpreted the most likely cause of the patient's condition is unclear. Patient does have evidence of infection with positive sirs criteria and elevated procalcitonin requiring IV antibiotics. Source is uncertain. Additionally he has NIKOLAY and likely uremia which may explain many of patient's reported symptoms - The results of ED evaluation were discussed with the patient including plan for admission due to requirement for level of care not available if discharged to prevent significant worsening/deterioration. - Admitting service was contacted and Dr Santos with the hospitalist service agreed to admit the patient. We did discuss addition of ampicillin to medication regimen however we will defer at this time pending cell counts on CSF studies - Patient was admitted without further deterioration or significant events. Patient is critically ill. Note: Click bubbles or prepopulated ruvalcaba in note writing are used for assistance with data collection and billing and are inherently more limited than narrative and other text portions of this note. Please use narrative for additional clinical history and defer to narrative/free test for any case of contradictory information. If information appears in only free text or click bubble it should be considered present or absent as reported. Please contact note adjusto writer operator for clarifications of clinical information or contradictory information. MDM is a brief summary, contradictory or erroneous seeming information should be clarified and full note should be reviewed. Vital Signs: Vital signs: Vital Signs Temperature 98.8 F 12/26/21 19:39 Pulse Rate 92 12/26/21 19:39 Respiratory Rate 18 12/26/21 20:28 Blood Pressure 129/76 12/26/21 19:39 Pulse Oximetry 92 12/26/21 19:39 MDM - Weakness Medical Decision Making 66-year-old gentleman with complex past medical history presenting with generalized illness and new bilateral upper and lower extremity twitching. Patient ill on exam. No definite source of infection identified as source of SIRS criteria with positive procalcitonin. The patient was given fluids and antibiotics. LP was obtained with cell counts pending at time of admission. Patient does have NIKOLAY and likely uremia. Admitted for further definitive management and further investigation of infectious source. Medical Records I reviewed the patient's medical records. Lab Data I reviewed the patient's lab results. : 12/25/21 03:25 12/25/21 03:25 Radiology Impressions Chest X-Ray 12/22/21 11:35 IMPRESSION: No acute chest abnormality. Head CT 12/22/21 11:35 IMPRESSION: 1. No evidence of intracranial hemorrhage or mass effect. 2. Mild small vessel changes. Mild parenchymal volume loss. 3. No acute intracranial findings. Chest/Abdomen/Pelvis CT 12/22/21 12:19 IMPRESSION: 1. No acute pulmonary infiltrates. Lungs are well aerated. 2. Cholelithiasis. No gallbladder wall thickening or pericholecystic fluid. 3. Bilateral perinephric edema can be seen with renal insufficiency. Renal atrophy with malrotation RIGHT kidney. No hydronephrosis. 4. No obstructing renal or ureteral calculi. 5. A few enlarged lymph nodes in the central mesentery and RIGHT lower quadrant nonspecific but may be reactive. Largest lymph nodes measure 11-12 mm. 6. No other significant findings. Laboratory Results WBC 32.4 10^3/uL (4.0-10.0) H* 12/22/21 11:18 RBC 3.51 10^6/uL (4.1-5.3) L 12/22/21 11:18 Hgb 9.6 g/dL (11.7-16.6) L 12/22/21 11:18 Hct 30.5 % (42.0-52.0) L 12/22/21 11:18 MCV 86.9 fl (80-94) 12/22/21 11:18 MCH 27.4 pg (28.0-34.0) L 12/22/21 11:18 MCHC 31.5 g/dL (30.0-36.0) 12/22/21 11:18 RDW 13.7 % (12.1-15.1) 12/22/21 11:18 Plt Count 464 10^3/cmm (130-400) H 12/22/21 11:18 MPV 10.2 fL (7.4-10.4) 12/22/21 11:18 Lymph % (Auto) Not Reportable 12/22/21 11:18 [place] % (Auto) Not Reportable 12/22/21 11:18 Lymph # (Auto) Not Reportable 12/22/21 11:18 [place] # (Auto) Not Reportable 12/22/21 11:18 Total Counted 100 (0-100) 12/22/21 11:18 Atypical Lymphs % 0.0 % (0-5) 12/22/21 11:18 Absolute Neutrophils 26.6 10^3/cmm (1.4-6.5) H 12/22/21 11:18 Segmented Neutrophils 38 % 12/22/21 11:18 Abs Segm Neuts (Man) 12.3 10/cmm (1.6-7.1) H 12/22/21 11:18 Band Neutrophils 44.0 % 12/22/21 11:18 Abs Band Neuts (Man) 14.3 10^3/cmm (0.0-1.2) H 12/22/21 11:18 Absolute Lymphocytes 1.0 10^3/cmm (1.2-3.4) L 12/22/21 11:18 Lymphocytes (Manual) 3 % 12/22/21 11:18 Monocytes (Manual) 1.0 % 12/22/21 11:18 Absolute Monocytes 0.3 10^3/cmm (0.1-0.6) 12/22/21 11:18 Eosinophils (Manual) 2 % 12/22/21 11:18 Absolute Eosinophils 0.6 10^3/cmm (0.0-0.7) 12/22/21 11:18 Basophils (Manual) 0.0 % 12/22/21 11:18 Absolute Basophils 0.0 10^3/cmm (0.0-0.2) 12/22/21 11:18 Metamyelocytes 10.0 % 12/22/21 11:18 Myelocytes 2.0 % 12/22/21 11:18 Platelet Estimate Increased (Normal) 12/22/21 11:18 Sodium 132 mmol/L (136-145) L 12/22/21 11:18 Potassium 5.4 mmol/L (3.5-5.1) H 12/22/21 11:18 Chloride 95 mmol/L (98-107) L 12/22/21 11:18 Carbon Dioxide 20 mmol/L (22-29) L 12/22/21 11:18 Anion Gap 22.4 (5-19) H 12/22/21 11:18 BUN 117 mg/dL (8-23) H* D 12/22/21 11:18 Creatinine 4.1 mg/dL (0.7-1.2) H 12/22/21 11:18 GFR Calculation 14.8 mL/min (90-130) L 12/22/21 11:18 Glucose 226 mg/dL (65-115) H 12/22/21 11:18 POC Glucose 267 mg/dL (70-110) H 12/22/21 11:58 Calculated Osmolality 318 mOsm/kg (285-295) H 12/22/21 11:18 Lactic Acid 1.7 mmol/L (0.5-2.2) 12/22/21 11:18 Calcium 7.6 mg/dL (8.5-10.5) L 12/22/21 11:18 Magnesium 2.1 mg/dL (1.7-2.3) 12/22/21 11:18 Total Bilirubin 0.3 mg/dL (0.15-1.2) 12/22/21 11:18 AST 9 U/L (0-40) 12/22/21 11:18 ALT 15 U/L (0-41) 12/22/21 11:18 Alkaline Phosphatase 140 IU/L (40-130) H 12/22/21 11:18 Ammonia 68 umol/L (16-60) H 12/22/21 11:18 Troponin T Baseline 107 ng/L (0-15) H* 12/22/21 12:00 Troponin T 120 Minute 95.94 ng/L (0-15) H 12/22/21 14:10 Delta Troponin T -11.06 ABS# (0-10) L 12/22/21 14:10 C-Reactive Protein 166.5 mg/L (0.0-4.9) H 12/22/21 11:18 NT-Pro-B Natriuret Pep 1617 pg/mL (0-125) H 12/22/21 11:18 Total Protein 4.2 g/dL (6.6-8.7) L 12/22/21 11:18 Albumin 2.1 g/dL (3.5-5.2) L 12/22/21 11:18 Globulin 2.1 g/dL (1.3-4.6) 12/22/21 11:18 Procalcitonin 0.88 ng/mL (0-0.5) H 12/22/21 11:18 TSH 1.91 uIU/mL (0.27-4.20) 12/22/21 11:18 Urine Color Yellow (Yellow) 12/22/21 17:15 Urine Appearance Clear (CLEAR) 12/22/21 17:15 Urine pH 5 (5-7) 12/22/21 17:15 Ur Specific [place] 1.015 (1.005-1.030) 12/22/21 17:15 Urine Protein Trace (Negative) 12/22/21 17:15 Urine Glucose (UA) Norm (Normal) 12/22/21 17:15 Urine Ketones Negative (Negative) 12/22/21 17:15 Urine Blood Neg (Negative) 12/22/21 17:15 Urine Nitrate Negative (Negative) 12/22/21 17:15 Urine Bilirubin 1+ (Negative) H 12/22/21 17:15 Urine Urobilinogen Neg mg/dL (Negative) 12/22/21 17:15 Ur Leukocyte Esterase Negative (Negative) 12/22/21 17:15 Urine RBC 0-4 /hpf (0-2) H 12/22/21 17:15 Urine WBC 0-4 /hpf (0-5) H 12/22/21 17:15 Ur Squamous Epith Cells None /hpf (0-5) 12/22/21 17:15 Amorphous Sediment 1+ /hpf 12/22/21 17:15 Urine Bacteria None /hpf (NONE) 12/22/21 17:15 CSF Appearance Clear (CLEAR) 12/22/21 15:15 CSF Color Colorless (COLORLESS) 12/22/21 15:15 CSF WBC 1 /uL (0-5) 12/22/21 15:15 CSF RBC 0 10^3/uL (0-0) 12/22/21 15:15 CSF Mononuclear # Auto 0.000 10^3/uL (50-90) L 12/22/21 15:15 CSF Mononuclear WBCs % 0 % (50-90) L 12/22/21 15:15 CSF Polynuclear WBCs # 0.001 10^3/uL (0-10) 12/22/21 15:15 CSF Polynuclear WBCs % 100 % (0-10) H 12/22/21 15:15 CSF Diff Comment Yes 12/22/21 15:15 CSF Glucose 134 mg/dL (40-70) H 12/22/21 15:15 CSF LDH Cancelled 12/22/21 15:15 CSF Total Protein 25 mg/dL (15-45) 12/22/21 15:15 Coronavirus 229E (PCR) Not detected (NOT DETECT) 12/22/21 13:15 Herpes Simplex Source Cerebrospinal fluid 12/22/21 15:15 SARS-CoV-2 (PCR) Not detected (NOT DETECT) 12/22/21 13:15 HSV 1 DNA Not detected 12/22/21 15:15 HSV 2 DNA Not detected 12/22/21 15:15 EKG Data EKG 1: I personally reviewed and interpreted this EKG as follows: EKG interpretation date: 12/22/21 EKG interpretation time: 12:07 Interpretation: Twelve-lead EKG shows a regular rhythm at a rate of 78. IL interval 117, QRS duration 107, QTc 408. Regular axis. Interpretation: Sinus rhythm. Short IL interval. EKG 2: I personally reviewed and interpreted this EKG as follows: EKG interpretation date: 12/22/21 EKG interpretation time: 17:58 Interpretation: Twelve-lead EKG shows a regular rate of 71. IL interval 133, QRS duration 98, QTc 428. Normal axis. Interpretation: Sinus rhythm Critical Care Time Critical Care Time: Critical Care Time: Yes Total Critical Care Time: 55 Attestation: Due to a high probability of clinically significant, possibly life threatening deterioration, the patient required my highest level of attention and preparedness to intervene emergently and I personally spent this critical care time directly and personally managing the patient. This critical care time included obtaining a history; examining the patient; pulse oximetry; ordering and review of laboratory and imaging studies; arranging urgent treatment with development of a management plan; evaluation of patient's response to treatment; frequent reassessment; and, discussions with other providers as applicable. It was exclusive of separately billable procedures. Discharge Plan Discharge Patient Disposition: Admitted As Inpatient Admit Provider: Sam Santos Clinical Impression: NIKOLAY (acute kidney injury), Encephalopathy, Muscle twitching, Acute uremia, Leukocytosis Condition: Stable Coding Level of Care Code ED Commissioner Of [employer] for Chg Fwd Exam Comprehensive
--- NOTE | 2021-12-22 11:35 | XR_ITS ---
WS: [id number] XR chest 1V portable [id number] REASON FOR EXAM: sob FINDINGS: Mild tortuosity of the thoracic aorta. No significant cardiomegaly. No active pulmonary parenchymal or pleural disease is identified. 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 Degenerative spondylosis in the mid and lower thoracic spine. Bony thorax otherwise unremarkable. XR/XR chest 1V portable [id number] IMPRESSION: No acute chest abnormality.
--- NOTE | 2021-12-22 11:35 | CT_ITS ---
WS: [id number] CT HEAD TECHNIQUE: Noncontrast CT of the head obtained from the skullbase to the vertex. CLINICAL INFORMATION: uncontrolled muscle movements, new onset COMPARISON: 1 ,018 DLP: 1809.[address] scans at [facility] use at least one of these dose optimization techniques: automated e xposure control; mA and/or kV adjustment per patient size (includes targeted exams where dose is matc hed to clinical indication); or iterative reconstruction. FINDINGS: No evidence of intracranial hemorrhage or mass effect. Ventricular system and basal cisterns are alvarado nt. Mild small vessel changes with mild parenchymal volume loss. No extra-axial fluid collections. No evidence of mass or mass effect. RIGHT globe prosthesis. Intracranial vascular calcification. Paranasal sinuses and mastoid air cells are well aerated. .Normal visualized soft tissues. CT/CT head wo con* [id number] IMPRESSION: 1. No evidence of intracranial hemorrhage or mass effect. 2. Mild small vessel changes. Mild parenchymal volume loss. 3. No acute intracranial findings.
--- NOTE | 2021-12-22 11:36 | ECG_ITS ---
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 Measurements Intervals [place] Rate: 78 P: 15 [place]: 117 QRS: 52 QRSD: 107 T: 49 QT: 375 QTc: 428 Interpretive Statements SINUS RHYTHM WITH SINUS ARRHYTHMIA WITH SHORT [place] INTERVAL Compared to ECG 10/19/2021 03:59:31 Short [place] interval now present Electronically Signed On 12-22-2021 17:39:19 GEOLOGICAL SURVEY FIELD ASSISTANT by Colin Monique M.D. [email or web address]/[id number] f
[2021-12-22 11:47] LABS: Hematocrit 30.5 % (42.0-52.0); Hemoglobin 9.6 g/dL (11.7-16.6); Mean Corpuscular HGB Conc 31.5 g/dL (30.0-36.0); Mean Corpuscular Hemoglobin 27.4 pg (28.0-34.0); Mean Corpuscular Volume 86.9 fl (80-94); Mean Platelet Volume 10.2 fL (7.4-10.4); Platelet Count 464 10^3/cmm (130-400); Red Blood Count 3.51 10^6/uL (4.1-5.3); Red Cell Distribution Width 13.7 % (12.1-15.1)
[2021-12-22 11:56] LABS: White Blood Count 32.4 10^3/uL (4.0-10.0)
[2021-12-22 12:01] LABS: Glucose Point of Care 267 mg/dL (70-110)
[2021-12-22 12:09] LABS: Ammonia 68 umol/L (16-60)
[2021-12-22 12:12] LABS: Alanine Aminotransferase 15 U/L (0-41); Albumin Level 2.1 g/dL (3.5-5.2); Alkaline Phosphatase 140 IU/L (40-130); Anion Gap 22.4 (5-19); Aspartate Amino Transferase 9 U/L (0-40); Calcium 7.6 mg/dL (8.5-10.5); Carbon Dioxide 20 mmol/L (22-29); Chloride 95 mmol/L (98-107); Globulin 2.1 g/dL (1.3-4.6); Glomerular Filtration Rate 14.8 mL/min (90-130); Glucose 226 mg/dL (65-115); Magnesium 2.1 mg/dL (1.7-2.3); NT Pro B Type Natriuretic Pept 1617 pg/mL (0-125); Potassium 5.4 mmol/L (3.5-5.1); Sodium 132 mmol/L (136-145); Thyroid Stimulating Hormone 1.91 uIU/mL (0.27-4.20); Total Bilirubin 0.3 mg/dL (0.15-1.2); Total Protein 4.2 g/dL (6.6-8.7)
--- NOTE | 2021-12-22 12:19 | CT_ITS ---
WS: [id number] CT CHEST, ABDOMEN, AND PELVIS TECHNIQUE: Noncontrast CT of the chest, abdomen, and pelvis with coronal and sagittal reformatted giacomo ges. CLINICAL INFORMATION: leukocytosis, weakness, smiley, ?infectious source ?obstruction COMPARISON: Prior CT chest [address] abdomen pelvis 2010 DLP: 2388.[address] scans at [facility] use at least one of these dose optimization techniques: automated e xposure control; mA and/or kV adjustment per patient size (includes targeted exams where dose is matc hed to clinical indication); or iterative reconstruction. CT CHEST: Mild chronic emphysematous changes. No acute pulmonary infiltrates. Slight subsegmental atelectasis i n the RIGHT upper lobe and RIGHT middle lobe. No focal pneumonia or pleural fluid. Normal caliber tho racic aorta. Aortic calcification. Coronary calcification. No mediastinal or hilar lymphadenopathy. N o axillary lymphadenopathy. CT ABDOMEN AND PELVIS: Noncontrast liver is normal. Cholelithiasis. Normal GE junction. Fatty atrophy of the pancreas. Adren al glands are normal. Malrotation RIGHT kidney unchanged. Bilateral renal atrophy. Adrenal glands are normal. No evidence of obstruction. No hydronephrosis. No renal or ureteral calculi. Normal sigmoid colon. A few sigmoid diverticuli. No evidence of acute diverticulitis. No evidence of high-grade small or large bowel obstruction. Normal appendix in the RIGHT lower quadrant. A few promi nent lymph nodes in the central mesentery and RIGHT lower quadrant nonspecific but may be reactive. N o periaortic or retroperitoneal lymphadenopathy. No inguinal lymphadenopathy. Disc space narrowing lower lumbar spine L4-L5 and L5-S1 with vacuum disc phenomenon. CT/CT chest abd pel wo con IMPRESSION: 1. No acute pulmonary infiltrates. Lungs are well aerated. 2. Cholelithiasis. No gallbladder wall thickening or pericholecystic fluid. 3. Bilateral perinephric edema can be seen with renal insufficiency. Renal atr ophy with malrotation RIGHT kidney. No hydronephrosis. 4. No obstructing renal or ureteral calculi. 5. A few enlarged lymph nodes in the central mesentery and RIGHT lower quadran t nonspecific but may be reactive. Largest lymph nodes measure 11-12 mm. 6. No other significant findings.
[2021-12-22 12:22] LABS: Lactic Sepsis W/Reflex 1.7 mmol/L (0.5-2.2)
[2021-12-22 12:24] LABS: Blood Urea Nitrogen 117 mg/dL (8-23); Osmolality Calculated 318 mOsm/kg (285-295)
[2021-12-22 12:43] LABS: Troponin(5th) Baseline 107 ng/L (0-15)
[2021-12-22 12:52] LABS: Absolute Eosinophils 0.6 10^3/cmm (0.0-0.7); Absolute Segmented Neutrophil 12.3 10/cmm (1.6-7.1); Band Neutrophils Absolute 14.3 10^3/cmm (0.0-1.2); Eosinophils 2 %; Lymphocytes 3 %; Monocytes Absolute 0.3 10^3/cmm (0.1-0.6); Segmented Neutrophils 38 %; Slide Review Slide Review Perform; Total Cells Counted 100 (0-100)
[2021-12-22 12:53] LABS: Absolute Neutrophil 26.6 10^3/cmm (1.4-6.5); Platelet Estimate Increased (Normal)
[2021-12-22] MEDS: sodium chloride 0.9% 500 ML 999 ML IV (13:00)
[2021-12-22 13:03] VITALS: BP 93/63; PULSE 74; RESP 18; TEMP 36.7; O2SAT 96
[2021-12-22 13:10] LABS: C Reactive Protein 166.5 mg/L (0.0-4.9)
[2021-12-22] MEDS: cefTRIAXone 2,000 MG in sodium chloride 0.9% (plus) 50 ML 100 MG IV (13:35)
[2021-12-22] MEDS: SODIUM CHLORIDE 0.9% 2259 ML IV (13:36)
[2021-12-22 13:40] LABS: Procalcitonin 0.88 ng/mL (0-0.5)
[2021-12-22] MEDS: vancomycin 1,500 MG/300 ML PIGGYBACK 200 MG IV (14:54)
[2021-12-22 15:06] LABS: Adenovirus Not Detected (NOT DETECT); Chlamydia Pneumoniae Not Detected (NOT DETECT); Coronavirus 229E,HKU1,NL63,OC4 Not Detected (NOT DETECT); Human Metapneumovirus Not Detected (NOT DETECT); Human Rhinovirus/Enterovirus Not Detected (NOT DETECT); Influenza A Not Detected (NOT DETECT); Influenza A H1 Not Detected (NOT DETECT); Influenza A H1-2009 Not Detected (NOT DETECT); Influenza A H3 Not Detected (NOT DETECT); Influenza B Not Detected (NOT DETECT); Mycoplasma Pneumoniae Not Detected (NOT DETECT); Parainfluenza Virus Type 1 Not Detected (NOT DETECT); Parainfluenza Virus Type 2 Not Detected (NOT DETECT); Parainfluenza Virus Type 3 Not Detected (NOT DETECT); Parainfluenza Virus Type 4 Not Detected (NOT DETECT); Respiratory Syncytial Virus A Not Detected (NOT DETECT); Respiratory Syncytial Virus B Not Detected (NOT DETECT); SARS-COV-2 Not Detected (NOT DETECT)
[2021-12-22 15:13] LABS: Troponin 5 2HR 95.94 ng/L (0-15); Troponin 5 2HR Delta -11.06 ABS# (0-10)
[2021-12-22 16:35] LABS: Mononuclear WBC CSF % 0 % (50-90); Polynuclear Cells ,CSF # 0.001 10^3/uL (0-10); Polynuclear WBC CSF % 100 % (0-10); Red Blood Cell CSF 0 10^3/uL (0-0); White Blood Cell CSF 1 /uL (0-5)
[2021-12-22 16:40] LABS: Appearance CSF CLEAR (CLEAR); Color CSF COLORLESS (COLORLESS)
[2021-12-22 16:41] LABS: Pathology Referral Yes
[2021-12-22 17:05] LABS: Total Protein CSF 25 mg/dL (15-45)
[2021-12-22 17:19] LABS: Glucose CSF 134 mg/dL (40-70)
--- NOTE | 2021-12-22 17:36 | ECG_ITS ---
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 Measurements Intervals [place] Rate: 71 P: 56 [place]: 133 QRS: 70 QRSD: 98 T: 64 QT: 405 QTc: 442 Interpretive Statements SINUS RHYTHM Compared to ECG 12/22/2021 12:01:37 Sinus arrhythmia no longer present Short [place] interval no longer present Electronically Signed On 12-23-2021 0:45:26 CHANNEL SALES MANAGER by Colin Monique M.D. [id number]
--- NOTE | 2021-12-22 17:53 | PM.HP ---
Providers/Chief Complaint Admitting Physician: Sam Santos Primary Care Provider: Lev Gonzalez MD Chief Complaint: Weakness, R arm swelled, O2 mid 90s History of Present Illness 66-year-old gentleman with history of CKD, with recent admission due to NIKOLAY on CKD, CHF exacerbation, hypoxia with possible pneumonia, since about a week after discharge had been having progressive decline over the last month or so, recently significantly weak, fatigued, lethargic, with asterixis/tremor, brought in by his son for evaluation due to now even having difficulties with ambulation. He is chronically on 2 L of oxygen, recently had even increased it up to 3-4 L, but did not feel less fatigued. Last few days did not have good oral intake. No fevers, chills, no nausea, vomiting or diarrhea. In ER is noted to have high leukocytosis 32.4, hemoglobin 9.6, platelet 464. Sodium 132, potassium 5.4, chloride 95, bicarb 20, anion gap 20.4, lactic acid 1.7, creatinine 4.1, BUN 117. Alk phos 140, normal other liver parameters. Ammonia 68. Baseline troponin I 107, 2-hour troponin 95.9 4. NT proBNP 1617. Albumin 2.1. CRP 166.5. Procalcitonin 0.88. TSH 1.91. Coronavirus PCR negative. UA requested, pending. LP performed with 1 WBC. HSV DNA pending. Received IV fluid challenge in ER, and started on ceftriaxone and vancomycin. Review of Systems Const: Reports: change in appetite, fatigue, change in sleep pattern and daytime sleepiness; Denies: fever(s), chills, body aches or malaise Eyes: Denies: change in vision or eye redness ENMT: Denies: throat pain, oral sores or ear or mastoid pain Card: Denies: chest pain, edema, pre-syncope or dyspnea on exertion Resp: Denies: dyspnea, productive cough, change in phlegm color or hemoptysis GI: Denies: abdominal pain, nausea, vomiting, diarrhea, constipation, hematochezia or melena : Denies: flank pain, difficulty urinating, urinary frequency or hematuria Musc: Denies: back pain, joint swelling or joint redness Skin/Breast: Denies: rash, sores or new lesions Neuro: Reports: difficulty walking, confusion and involuntary movements; Denies: headache(s), numbness in extremities, weakness in extremities, dizziness or seizure-like activity Endo: Denies: polyuria or polydipsia Fernando/Lymph: Denies: easy bleeding or purpura All/Imm: Denies: urticaria, throat swelling or tongue swelling Medications/Allergies Home Medications Medication Instructions Recorded Confirmed Last Taken Type amlodipine 10 mg tablet 10 mg PO DAILY 11/19/19 11/08/21 Unknown History indomethacin 50 mg capsule 100 mg PO BID 11/19/19 11/08/21 Unknown History pantoprazole 40 mg tablet,delayed 40 mg PO BID 11/19/19 11/08/21 Unknown History release (Protonix) tamsulosin 0.4 mg capsule (Flomax) 0.4 mg PO BID cap 11/19/19 11/08/21 Unknown History finasteride 5 mg tablet 5 mg PO DAILY tab 01/15/20 11/08/21 Unknown History oxycodone 30 mg tablet 30 mg PO .5 TIMES A DAY PRN 30 08/17/21 11/08/21 Unknown Rx Days #150 tab albuterol sulfate 90 mcg/actuation 2 puff INHALATION Q4H PRN 10/19/21 11/08/21 Unknown History aerosol inhaler atorvastatin 10 mg tablet 10 mg PO DAILY 10/19/21 11/08/21 Unknown History isosorbide mononitrate 30 mg 30 mg PO DAILY 10/19/21 11/08/21 Unknown History tablet,extended release 24 hr prednisolone acetate 1 % eye 1 drp OPHTHALMIC (EYE) BEDTIME 10/19/21 11/08/21 Unknown History drops,suspension glimepiride 2 mg tablet 2 mg PO BID #0 tab 10/22/21 10/19/21 Unknown Rx magnesium chloride 64 mg 64 mg PO DAILY 11/08/21 11/08/21 Unknown History (magnesium chloride) tablet,delayed release Allergies Allergy/AdvReac Type Severity Reaction Status Date / Time No Known Allergies Allergy Verified 11/08/21 16:01 PFSH Acute PFSH: Medical History Atrial tachycardia Chronic low back pain Chronic SI joint pain CKD (chronic kidney disease) COPD (chronic obstructive pulmonary disease) Degeneration of lumbar intervertebral disc Diastolic CHF Encounter for long-term use of opiate analgesic Hypertensive emergency Long-term use of high-risk medication Opioid contract exists Postlaminectomy syndrome, not elsewhere classified Spinal stenosis, lumbar region with neurogenic claudication Spondylosis without myelopathy or radiculopathy, lumbosacral region Uncontrolled hypertension Surgical History History of lumbar laminectomy for spinal cord decompression Dr. Srivastava 03/28/17: Left L4-L5, L5-S1 laminectomy,discectomy,foraminotomy History of tonsillectomy S/P knee surgery right S/P shoulder surgery Left Status post hemilaminotomy 06/17/17 Dr. Srivastava: Left L4-L5 hemilaminotomy/discectomy/ foraminotomy. reexploration Family History Mother Hypertension mother at age 60 of c.h.f. Social History (Updated 12/22/21 @ 18:08 by Sam Santos MD) Smoking and tobacco status: former smoker Quit status (tobacco): has quit using tobacco Second hand smoke exposure: No Smoking risk assessment/counseling performed?: No Alcohol intake: former Desire information about alcohol rehabilitation?: No Counseling given: Yes Substance/Drug Use: never Desire information about substance/drug rehabilitation?: No Counseling given: No Adopted: No Caregiver/support person: Yes (TO ) Lives independently: Yes Household members: spouse Marital status: History of recent travel: No Vitals/I&O/Wt Last Vital Signs Temp 98.1 F 12/22/21 13:03 Pulse 74 12/22/21 13:03 Resp 18 12/22/21 13:03 BP 93/63 12/22/21 13:03 Pulse Ox 96 12/22/21 13:03 Weight last 48 hrs Weight 104.326 kg Physical Exam Const: COMMON NORMALS: no acute distress; negative for patient oriented x3 GENERAL APPEARANCE: comfortable and lethargic HENMT: COMMON NORMALS: oropharynx normal Neck/C-Spine: COMMON NORMALS: no JVD Resp: COMMON NORMALS: normal respiratory effort and clear to auscultation bilaterally AUSCULTATION: clear to auscultation bilaterally Cardio: COMMON NORMALS: no JVD, regular rhythm, S1 normal heart sound present, S2 normal heart sound present and No murmurs present (Cardio) RHYTHM: regular rhythm HEART SOUNDS: S1 normal heart sound present and S2 normal heart sound present GI: COMMON NORMALS: Normal to inspection, nondistended, normoactive bowel sounds present, Soft to palpation and non-tender PALPATION: Yes Soft to palpation Extremity: COMMON NORMALS: no joint enlargement and no pedal edema Neuro: COMMON NORMALS: moves all extremities; negative for patient oriented x3 OTHER: Asterixis Skin: COMMON NORMALS: no rashes or lesions noted GENERAL SKIN EXAM: no rashes or lesions noted Data : 12/22/21 11:18 12/22/21 11:18 Micro: Microbiology 12/22/21 15:15 Gram Stain - Final Cerebrospinal Fluid Cryptococcal Antigen - Final 12/22/21 14:10 Blood Culture - Preliminary Blood SPECIMEN COLLECTED 12/22/21 14:10 Blood Culture - Preliminary Blood SPECIMEN COLLECTED A&P Assessment and plan (1) Encephalopathy: Acute metabolic encephalopathy. Discussed extensively with his son and [id number] at bedside. Possibly acute kidney injury with medication accumulation including gabapentin. Cannot entirely exclude uremia given BUN elevation, although possibly less likely. Will monitor renal function, hold medications at this time. Hyperammonemia noted, but unclear significance given no history of liver cirrhosis. Obtain urine. LP was performed, not suggestive of NUTRITION COUNSELOR infection. TSH normal. COVID-19 PCR negative. Chest x-ray not suggestive of pneumonia. Procalcitonin is not low, although difficult to interpret in case of acute kidney injury. Still with high leukocytosis discussed possibility of occult infection. For now we will continue to antibiotic with ceftriaxone, vancomycin. Status: Acute (2) Muscle twitching: Asterixis, secondary to metabolic encephalopathy as above. Status: Acute (3) NIKOLAY (acute kidney injury): Possibly prerenal, blood pressures on the soft side, he is continue taking his medications. Poor oral intake last several days. Also has been taking NSAIDs. Also taking losartan. Discussed with family discontinue indomethacin. Family believe that member inflammatory arthritis and that he follows with rheumatology, but did not remember where. Discussed use Tylenol for now as needed, with inflammatory arthritis to follow-up with rheumatology to discuss additional options for treatment avoiding further NSAIDs Status: Acute (4) Leukocytosis: Follow-up blood cultures. UA not suggestive of UTI. No suggestion of pneumonia. CSF not suggestive of NUTRITION COUNSELOR infection. Possibly hemoconcentration with dehydration. Received fluid challenge. Follow-up blood counts. Empiric antibiotics for now. Status: Acute (5) Hyperkalemia: . Hold losartan. Received fluid challenge. For now n.p.o., low potassium diet subsequently. Status: Acute Plan Elevated troponin: 107-95.94. He denies chest pain or pressure. No trouble breathing. Suspect in the setting of renal injury demand ischemia with metabolic abnormalities. Once recovers from acute illness consider additional risk stratification with stress testing. Dehydration: Received IVF challenge History of diastolic CHF: Not in exacerbation currently. Hold diuretic. CKD COPD: On chronic 2 L oxygen, not in exacerbation BPH DJD HTN Other chronic medical problems noted Attestations Medical Necessity Statement*: Admission of over 2 midnights is going to be needed for assessment management of acute encephalopathy, acute kidney injury, additional abnormalities as above. 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
[2021-12-22 17:54] VITALS: BP 113/50; PULSE 73; RESP 14; TEMP 37; O2SAT 95
[2021-12-22 18:07] LABS: Bilirubin Urine 1+ (Negative); Blood Urine Neg (Negative); Glucose Urine UA Norm (Normal); Ketones Urine Negative (Negative); Nitrate Urine Negative (Negative); Protein Urine Trace (Negative); Specific Gravity, Urine 1.015 (1.005-1.030); Urine Appearance Clear (CLEAR); Urine Color Yellow (Yellow); pH Urine 5 (5-7)
[2021-12-22 18:08] LABS: Add Urine Microscopic? YES; Leukocyte Esterase Urine Negative (Negative); RBC Urine 0-4 /hpf (0-2); Urobilinogen Urine Neg (Negative); WBC Urine 0-4 /hpf (0-5)
[2021-12-22 18:09] LABS: Add Urine Culture? No; Amorphous Sediment Urine 1+ /hpf
[2021-12-22 18:11] LABS: LAB Peripheral Smear Sent for Review
[2021-12-22 18:26] LABS: Troponin 5 6HR 87.83 ng/L (0-15)
[2021-12-22] MEDS: heparin 5,000 unit/mL INJ 1 mL 5000 UNIT SUBCUT (19:47)
[2021-12-22] MEDS: pantoprazole 40 mg SDV IVP (19:51)
[2021-12-22 19:57] LABS: Glucose Point of Care 223 mg/dL (70-110)
[2021-12-22 19:57] LABS: Glucose Point of Care 242 mg/dL (70-110)
[2021-12-22] MEDS: insulin lispro 100 unit/1 mL SUBCUT (19:58)
[2021-12-22 21:04] LABS: Calcium 6.3 mg/dL (8.5-10.5); Carbon Dioxide 21 mmol/L (22-29); Chloride 102 mmol/L (98-107); Glomerular Filtration Rate 15.6 mL/min (90-130); Glucose 209 mg/dL (65-115); Sodium 137 mmol/L (136-145)
[2021-12-22 21:14] LABS: Osmolality Calculated 330 mOsm/kg (285-295)
[2021-12-22 21:16] LABS: Blood Urea Nitrogen 125 mg/dL (8-23)
[2021-12-22 21:56] VITALS: BP 119/68; PULSE 82; RESP 23; TEMP 36.7; O2SAT 96
[2021-12-22 21:57] LABS: Glucose Point of Care 193 mg/dL (70-110)
[2021-12-22 23:27] LABS: Calcium 6.3 mg/dL (8.5-10.5); Carbon Dioxide 16 mmol/L (22-29); Chloride 105 mmol/L (98-107); Glomerular Filtration Rate 16.6 mL/min (90-130); Glucose 132 mg/dL (65-115); Sodium 136 mmol/L (136-145)
[2021-12-22 23:32] LABS: Osmolality Calculated 324 mOsm/kg (285-295)
[2021-12-22 23:33] LABS: Anion Gap 20.2 (5-19); Potassium 5.2 mmol/L (3.5-5.1)
[2021-12-22 23:34] LABS: Blood Urea Nitrogen 125 mg/dL (8-23)
[2021-12-23] VITALS (11 sets, daily range): BP systolic 97–159; BP diastolic 58–82; PULSE 74–96; RESP 16–21; TEMP 36.8–37.1; O2SAT 91–98
[2021-12-23 06:18] LABS: Basophils # 0.1 10^3/uL (0.0-0.1); Basophils % 0.6 %; Eosinophils # 0.4 10^3/uL (0.0-0.8); Hematocrit 27.6 % (42.0-52.0); Hemoglobin 8.6 g/dL (11.7-16.6); Lymphocytes % 4.4 %; Mean Corpuscular HGB Conc 31.2 g/dL (30.0-36.0); Mean Corpuscular Hemoglobin 27.4 pg (28.0-34.0); Mean Corpuscular Volume 87.9 fl (80-94); Mean Platelet Volume 10.4 fL (7.4-10.4); Monocytes # 1.2 10^3/uL (0.2-0.9); Monocytes % 5.5 %; Neutrophils # 19.07 10^3/uL (1.8-7.7); Neutrophils % 86.4 %; Nucleated Red Blood Cells % 0 %; Platelet Count 404 10^3/cmm (130-400); Red Blood Count 3.14 10^6/uL (4.1-5.3); Red Cell Distribution Width 13.8 % (12.1-15.1); White Blood Count 22.1 10^3/uL (4.0-10.0)
[2021-12-23 06:31] LABS: Glucose Point of Care 123 mg/dL (70-110)
[2021-12-23 06:31] LABS: Glucose Point of Care 128 mg/dL (70-110)
[2021-12-23 06:56] LABS: Alanine Aminotransferase 12 U/L (0-41); Albumin Level 1.7 g/dL (3.5-5.2); Alkaline Phosphatase 148 IU/L (40-130); Anion Gap 19.8 (5-19); Aspartate Amino Transferase 5 U/L (0-40); Calcium 7.1 mg/dL (8.5-10.5); Carbon Dioxide 19 mmol/L (22-29); Chloride 106 mmol/L (98-107); Globulin 2.4 g/dL (1.3-4.6); Glomerular Filtration Rate 16.6 mL/min (90-130); Glucose 111 mg/dL (65-115); Potassium 4.8 mmol/L (3.5-5.1); Sodium 140 mmol/L (136-145); Total Bilirubin 0.2 mg/dL (0.15-1.2); Total Protein 4.1 g/dL (6.6-8.7)
[2021-12-23 07:38] LABS: Osmolality Calculated 328 mOsm/kg (285-295)
[2021-12-23 07:44] LABS: Blood Urea Nitrogen 117 mg/dL (8-23)
--- NOTE | 2021-12-23 08:02 | PC.NURSE ---
Notified Dr. Santos of [facility] B[facility] 117.
[2021-12-23] MEDS: heparin 5,000 unit/mL INJ 1 mL 5000 UNIT SUBCUT ×2 (10:15→19:01)
[2021-12-23] MEDS: lactated ringers 500 ML 100 ML IV (10:51)
[2021-12-23 12:09] LABS: Glucose Point of Care 139 mg/dL (70-110)
[2021-12-23] MEDS: cefTRIAXone 2,000 MG in sodium chloride 0.9% (plus) 50 ML 100 MG IV (14:05)
[2021-12-23 17:30] LABS: Glucose Point of Care 134 mg/dL (70-110)
--- NOTE | 2021-12-23 19:03 | PM.PN ---
Subjective Subjective: Interval history: He is awake today, does not remember anything happening yesterday, he did not know how long he has been in the hospital. Denies pain or discomfort. Thirsty and could eat. Did well with ice chips at bedside swallow assessment. Vitals/I&O/Wt Last Vital Signs Temp 98.7 F 12/23/21 15:07 Pulse 74 12/23/21 15:13 Resp 16 12/23/21 15:13 BP 99/60 12/23/21 15:07 Pulse Ox 98 12/23/21 15:13 12/23/21 12/23/21 12/23/21 06:59 14:59 22:59 Output Total 425 / 425 450 / 450 400 / 850 Balance -425 / 1943 -450 / -450 -400 / -850 Weight last 48 hrs Weight 109.815 kg Weight 104.326 kg Physical Exam Const: COMMON NORMALS: no acute distress and alert GENERAL APPEARANCE: cooperative ORIENTATION/CONSCIOUSNESS: Yes awake HENMT: COMMON NORMALS: oropharynx normal Neck/C-Spine: COMMON NORMALS: no JVD Resp: COMMON NORMALS: normal respiratory effort and clear to auscultation bilaterally AUSCULTATION: clear to auscultation bilaterally Cardio: COMMON NORMALS: no JVD, regular rhythm, S1 normal heart sound present, S2 normal heart sound present and No murmurs present (Cardio) RHYTHM: regular rhythm HEART SOUNDS: S1 normal heart sound present and S2 normal heart sound present GI: COMMON NORMALS: Normal to inspection, nondistended, normoactive bowel sounds present, Soft to palpation and non-tender PALPATION: Yes Soft to palpation Extremity: COMMON NORMALS: no joint enlargement and no pedal edema Neuro: COMMON NORMALS: moves all extremities SENSORIUM/ORIENTATION: Yes alert OTHER: Asterixis Skin: COMMON NORMALS: no rashes or lesions noted GENERAL SKIN EXAM: no rashes or lesions noted Data : 12/23/21 05:32 12/23/21 05:32 Micro: Microbiology 12/22/21 14:10 Blood Culture - Preliminary Blood NEGATIVE TO DATE 12/22/21 14:10 Blood Culture - Preliminary Blood NEGATIVE TO DATE 12/22/21 15:15 Gram Stain - Final Cerebrospinal Fluid CSF Culture - Preliminary Cryptococcal Antigen - Final A&P Assessment and plan (1) Encephalopathy: Showing improvement today in metabolic encephalopathy. He is awake, alert, not much recollection of previous events. Pleasant, conversant. Cooperative. Slightly anxious. Does have persistent asterixis, and discussed with him and family this may persist while he is gradually improving. Renal function is showing improvement today. Did well at bedside swallow assessment with ice chips. Advance diet to clear liquids. Advance further as tolerating. Still leukocytosis, although so far no obvious infection. Appears to be improving. Possibly due to hemoconcentration. Was continued on IV fluids, now continue also oral intake as tolerating. Hold off diuretic for now. Follow-up Microbiology results. Cryptococcal antigen negative. So far no growth of CSF. Hold gabapentin, oxycodone for now due to possible toxic encephalopathy secondary to medication accumulation. Hyperammonemia noted, but unclear significance given no history of liver cirrhosis. Unremarkable urine. LP was performed, not suggestive of FILTER CHANGING TECHNICIAN infection. TSH normal. COVID-19 PCR negative. Chest x-ray not suggestive of pneumonia. Procalcitonin is not low, although difficult to interpret in case of acute kidney injury. Still with high leukocytosis discussed possibility of occult infection. For now we will continue to antibiotic with ceftriaxone, vancomycin. Status: Acute (2) Muscle twitching: Asterixis, secondary to metabolic encephalopathy as above. Status: Acute (3) NIKOLAY (acute kidney injury): Improving. Additional IVF today. P.o. intake as tolerating. Possibly prerenal, blood pressures on the soft side, he is continue taking his medications. Poor oral intake last several days. Also has been taking NSAIDs. Also taking losartan. Discussed with family discontinue indomethacin. Family believe that member inflammatory arthritis and that he follows with rheumatology, but did not remember where. Discussed use Tylenol for now as needed, with inflammatory arthritis to follow-up with rheumatology to discuss additional options for treatment avoiding further NSAIDs Status: Acute (4) Leukocytosis: Follow-up blood cultures. UA not suggestive of UTI. No suggestion of pneumonia. CSF not suggestive of FILTER CHANGING TECHNICIAN infection. Possibly hemoconcentration with dehydration. Received fluid challenge. Follow-up blood counts. Continue empiric antibiotics for now. Status: Acute (5) Hyperkalemia: Resolved. Hold losartan. Received fluid challenge. For now n.p.o., low potassium diet subsequently. Status: Acute Plan Elevated troponin: 107-95.94. He denies chest pain or pressure. No trouble breathing. Suspect in the setting of renal injury demand ischemia with metabolic abnormalities. Once recovers from acute illness consider additional risk stratification with stress testing. Dehydration: Additional IVF today, then continue to encourage oral intake. History of diastolic CHF: Not in exacerbation currently. Hold diuretic. CKD COPD: On chronic 2 L oxygen, not in exacerbation BPH DJD HTN Other chronic medical problems noted Attestations Medical Necessity Statement*: Continue admission for assessment and management of acute metabolic encephalopathy due to NIKOLAY, possibly acute toxic encephalopathy due to medication accumulation. Possible occult infection. 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
[2021-12-23 20:27] LABS: Glucose Point of Care 167 mg/dL (70-110)
[2021-12-23] MEDS: prednisoLONE 1% Op Susp 5 mL Btl 1 DROP EYE-BOTH (21:18)
[2021-12-24] VITALS (10 sets, daily range): BP systolic 107–185; BP diastolic 65–90; PULSE 83–117; RESP 16–18; TEMP 36.2–36.9; O2SAT 94–99
[2021-12-24] MEDS: LORazepam 2 mg/mL INJ 1 mL IM (01:52)
[2021-12-24] MEDS: vancomycin 1,500 MG/300 ML PIGGYBACK 200 MG IV (02:19)
[2021-12-24 03:20] LABS: Glucose Point of Care 153 mg/dL (70-110)
[2021-12-24] MEDS: insulin lispro 100 unit/1 mL SUBCUT ×2 (03:58→17:48)
[2021-12-24 05:25] LABS: Basophils # 0.1 10^3/uL (0.0-0.1); Basophils % 0.5 %; Eosinophils # 0.1 10^3/uL (0.0-0.8); Eosinophils % 0.7 %; Hematocrit 28.4 % (42.0-52.0); Hemoglobin 8.5 g/dL (11.7-16.6); Lymphocytes # 1.1 10^3/uL (0.8-4.8); Mean Corpuscular HGB Conc 29.9 g/dL (30.0-36.0); Mean Corpuscular Hemoglobin 26.9 pg (28.0-34.0); Mean Corpuscular Volume 89.9 fl (80-94); Mean Platelet Volume 10.1 fL (7.4-10.4); Monocytes # 0.9 10^3/uL (0.2-0.9); Monocytes % 5.1 %; Neutrophils # 15.48 10^3/uL (1.8-7.7); Neutrophils % 86.1 %; Nucleated Red Blood Cells % 0 %; Platelet Count 391 10^3/cmm (130-400); Red Blood Count 3.16 10^6/uL (4.1-5.3)
[2021-12-24 05:50] LABS: Alanine Aminotransferase 11 U/L (0-41); Albumin Level 1.7 g/dL (3.5-5.2); Alkaline Phosphatase 139 IU/L (40-130); Anion Gap 20.9 (5-19); Aspartate Amino Transferase 8 U/L (0-40); Calcium 6.8 mg/dL (8.5-10.5); Carbon Dioxide 20 mmol/L (22-29); Chloride 107 mmol/L (98-107); Globulin 2.6 g/dL (1.3-4.6); Glomerular Filtration Rate 20.4 mL/min (90-130); Glucose 144 mg/dL (65-115); Potassium 3.9 mmol/L (3.5-5.1); Sodium 144 mmol/L (136-145); Total Bilirubin 0.2 mg/dL (0.15-1.2); Total Protein 4.3 g/dL (6.6-8.7)
[2021-12-24 06:06] LABS: Osmolality Calculated 340 mOsm/kg (285-295)
[2021-12-24 06:08] LABS: Blood Urea Nitrogen 122 mg/dL (8-23)
[2021-12-24 06:42] LABS: Glucose Point of Care 97 mg/dL (70-110)
[2021-12-24] MEDS: heparin 5,000 unit/mL INJ 1 mL 5000 UNIT SUBCUT ×2 (07:06→21:01)
[2021-12-24] MEDS: pantoprazole DR 40 mg Tablet PO (07:41)
[2021-12-24] MEDS: finasteride 5 mg Tablet PO (07:41)
[2021-12-24] MEDS: atorvastatin 40 mg Tablet 10 MG PO (07:41)
[2021-12-24] MEDS: tamsulosin 0.4 mg Capsule PO ×2 (09:52→17:48)
[2021-12-24 11:22] LABS: Glucose Point of Care 124 mg/dL (70-110)
[2021-12-24] MEDS: cefTRIAXone 2,000 MG in sodium chloride 0.9% (plus) 50 ML 100 MG IV (12:56)
[2021-12-24] MEDS: oxyCODONE-APAP 10-325 mg Tablet 1 TAB PO ×2 (14:54→21:02)
[2021-12-24 16:47] LABS: Glucose Point of Care 154 mg/dL (70-110)
[2021-12-24] MEDS: prednisoLONE 1% Op Susp 5 mL Btl 1 DROP EYE-BOTH (21:03)
--- NOTE | 2021-12-24 22:39 | PM.PN ---
Subjective Subjective: Interval history: She is awake and alert today but with labile affect, somewhat pressured speech, more coherent, but still confused. Vitals/I&O/Wt Last Vital Signs Temp 98.4 F 12/24/21 20:00 Pulse 97 12/24/21 20:00 Resp 17 12/24/21 21:02 BP 157/78 12/24/21 20:00 Pulse Ox 97 12/24/21 21:02 12/24/21 12/24/21 12/24/21 06:59 14:59 22:59 Intake Total 300 / 970 170 / 170 60 / 230 Output Total 300 / 1150 150 / 150 500 / 650 Balance 0 / -180 20 / -440 / -420 Weight last 48 hrs Weight 106.912 kg Weight 109.815 kg Physical Exam Narrative: EXAM NARRATIVE: Family are at bedside. Const: COMMON NORMALS: no acute distress and alert GENERAL APPEARANCE: cooperative ORIENTATION/CONSCIOUSNESS: Yes awake and Yes confused OTHER: Loud and expansive. Conversant, joking around. HENMT: COMMON NORMALS: oropharynx normal Neck/C-Spine: COMMON NORMALS: no JVD Resp: COMMON NORMALS: normal respiratory effort and clear to auscultation bilaterally AUSCULTATION: clear to auscultation bilaterally Cardio: COMMON NORMALS: no JVD, regular rhythm, S1 normal heart sound present, S2 normal heart sound present and No murmurs present (Cardio) RHYTHM: regular rhythm HEART SOUNDS: S1 normal heart sound present and S2 normal heart sound present GI: COMMON NORMALS: Normal to inspection, nondistended, normoactive bowel sounds present, Soft to palpation and non-tender PALPATION: Yes Soft to palpation Extremity: COMMON NORMALS: no joint enlargement and no pedal edema Neuro: COMMON NORMALS: moves all extremities SENSORIUM/ORIENTATION: Yes alert OTHER: Asterixis Skin: COMMON NORMALS: no rashes or lesions noted GENERAL SKIN EXAM: no rashes or lesions noted Data : 12/24/21 05:05 12/24/21 05:05 Micro: Microbiology 12/22/21 15:15 Gram Stain - Final Cerebrospinal Fluid CSF Culture - Preliminary Cryptococcal Antigen - Final A&P Assessment and plan (1) Encephalopathy: Today more hyperactive delirium. Redirectable. Discussed with family concern for possible withdrawal from opioids as he appears to be on large doses of oxycodone. Now that he is awake and alert, improving renal function, resuming scheduled lower dose oxycodone. Discussed risk of again mental status depression, respiratory suppression, in the setting of renal failure, however, concern currently higher for withdrawal. Add Xanax as needed for anxiety. Hopefully mental status should continue to improve with improving renal function. Does have persistent asterixis, and discussed with him and family this may persist while he is gradually improving. Renal function is showing improvement today. Advance diet. Gradually decreasing leukocytosis, although so far no obvious infection. Appears to be improving. Possibly due to hemoconcentration. Was continued on IV fluids, now continue also oral intake as tolerating. Hold off diuretic for now. Follow-up Microbiology results. Cryptococcal antigen negative. So far no growth of CSF. HSV studies pending. Hold gabapentin, for now due to possible toxic encephalopathy secondary to medication accumulation. Hyperammonemia noted, but unclear significance given no history of liver cirrhosis. Unremarkable urine. LP was performed, not suggestive of LABORER PRESTRESSED CONCRETE infection. TSH normal. COVID-19 PCR negative. Chest x-ray not suggestive of pneumonia. Procalcitonin is not low, although difficult to interpret in case of acute kidney injury. Still with high leukocytosis discussed possibility of occult infection. For now we will continue to antibiotic with ceftriaxone, vancomycin. Status: Acute (2) Muscle twitching: Asterixis, secondary to metabolic encephalopathy as above. Status: Acute (3) NIKOLAY (acute kidney injury): Improving. He is tolerating oral intake. Off IVF. Possibly prerenal, blood pressures on the soft side, he is continue taking his medications. Poor oral intake last several days. Also has been taking NSAIDs. Also taking losartan. Discussed with family discontinue indomethacin. Family believe that member inflammatory arthritis and that he follows with rheumatology, but did not remember where. Discussed use Tylenol for now as needed, with inflammatory arthritis to follow-up with rheumatology to discuss additional options for treatment avoiding further NSAIDs Status: Acute (4) Leukocytosis: Follow-up blood cultures. UA not suggestive of UTI. No suggestion of pneumonia. CSF not suggestive of LABORER PRESTRESSED CONCRETE infection. Possibly hemoconcentration with dehydration. Received fluid challenge. Follow-up blood counts. Continue empiric antibiotics for now. Status: Acute (5) Hyperkalemia: Resolved. Hold losartan. Received fluid challenge. For now n.p.o., low potassium diet subsequently. Status: Acute Plan Elevated troponin: 107-95.94. He denies chest pain or pressure. No trouble breathing. Suspect in the setting of renal injury demand ischemia with metabolic abnormalities. Once recovers from acute illness consider additional risk stratification with stress testing. Dehydration: Received IV hydration, encourage oral intake which he so far has been tolerating. History of diastolic CHF: Not in exacerbation currently. Hold diuretic. CKD COPD: On chronic 2 L oxygen, not in exacerbation BPH DJD HTN Other chronic medical problems noted Attestations Medical Necessity Statement*: Continue admission for assessment and management of acute metabolic encephalopathy, possible toxic encephalopathy with improving renal function, possible opiate withdrawal. 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
[2021-12-25] VITALS (13 sets, daily range): BP systolic 131–184; BP diastolic 74–87; PULSE 77–111; RESP 17–19; TEMP 36.6–37.1; O2SAT 91–97
[2021-12-25 03:58] LABS: Basophils % 0.1 %; Eosinophils # 0.1 10^3/uL (0.0-0.8); Eosinophils % 1.1 %; Hematocrit 25.1 % (42.0-52.0); Hemoglobin 7.5 g/dL (11.7-16.6); Lymphocytes # 0.8 10^3/uL (0.8-4.8); Lymphocytes % 8.6 %; Mean Corpuscular HGB Conc 29.9 g/dL (30.0-36.0); Mean Corpuscular Hemoglobin 26.7 pg (28.0-34.0); Mean Corpuscular Volume 89.3 fl (80-94); Monocytes # 0.5 10^3/uL (0.2-0.9); Monocytes % 5.5 %; Neutrophils # 7.88 10^3/uL (1.8-7.7); Neutrophils % 81.2 %; Nucleated Red Blood Cells % 0 %; Platelet Count 343 10^3/cmm (130-400); Red Blood Count 2.81 10^6/uL (4.1-5.3); White Blood Count 9.7 10^3/uL (4.0-10.0)
[2021-12-25] MEDS: oxyCODONE-APAP 10-325 mg Tablet 1 TAB PO ×4 (04:09→21:48)
[2021-12-25 04:11] LABS: Glucose Point of Care 102 mg/dL (70-110)
[2021-12-25 04:22] LABS: Alanine Aminotransferase 11 U/L (0-41); Albumin Level 1.8 g/dL (3.5-5.2); Alkaline Phosphatase 128 IU/L (40-130); Aspartate Amino Transferase 11 U/L (0-40); Calcium 7.3 mg/dL (8.5-10.5); Carbon Dioxide 20 mmol/L (22-29); Chloride 107 mmol/L (98-107); Globulin 2.2 g/dL (1.3-4.6); Glomerular Filtration Rate 26.1 mL/min (90-130); Glucose 104 mg/dL (65-115); Osmolality Calculated 319 mOsm/kg (285-295); Sodium 141 mmol/L (136-145); Total Bilirubin 0.2 mg/dL (0.15-1.2)
[2021-12-25 04:33] LABS: Slide Review Slide Review Perform
[2021-12-25 04:38] LABS: Anion Gap 17.7 (5-19); Potassium 3.7 mmol/L (3.5-5.1)
[2021-12-25 04:39] LABS: Blood Urea Nitrogen 88 mg/dL (8-23)
[2021-12-25] MEDS: heparin 5,000 unit/mL INJ 1 mL 5000 UNIT SUBCUT ×2 (06:33→19:08)
[2021-12-25 06:55] LABS: Glucose Point of Care 100 mg/dL (70-110)
[2021-12-25] MEDS: tamsulosin 0.4 mg Capsule PO ×2 (09:50→19:08)
[2021-12-25] MEDS: atorvastatin 40 mg Tablet 10 MG PO (09:50)
[2021-12-25] MEDS: pantoprazole DR 40 mg Tablet PO (09:50)
[2021-12-25] MEDS: finasteride 5 mg Tablet PO (09:51)
[2021-12-25] MEDS: cefTRIAXone 2,000 MG in sodium chloride 0.9% (plus) 50 ML 100 MG IV (13:26)
[2021-12-25 13:51] LABS: Glucose Point of Care 312 mg/dL (70-110)
[2021-12-25] MEDS: insulin lispro 100 unit/1 mL SUBCUT ×2 (14:04→19:07)
[2021-12-25 14:36] LABS: Vancomycin Trough 14.3 ug/mL (10-15)
[2021-12-25] MEDS: vancomycin 1,500 MG/300 ML PIGGYBACK 200 MG IV (15:46)
--- NOTE | 2021-12-25 16:11 | PC.SOCIAL ---
IMM Update pg 2 of IMM updated and reviewed w/ patient. Copy provided and copy placed in chart.
[2021-12-25 17:16] LABS: Glucose Point of Care 276 mg/dL (70-110)
--- NOTE | 2021-12-25 17:52 | PM.PN ---
Subjective Subjective: Interval history: Mental status is much improved today. Patient is alert awake oriented, able to have a conversation with family at bedside. Afebrile. Leukocytosis resolved at 9. Creatinine currently at 2.5. Hemoglobin 7.5. Vitals/I&O/Wt Last Vital Signs Temp 98.2 F 12/25/21 16:00 Pulse 87 12/25/21 16:00 Resp 17 12/25/21 16:00 BP 134/81 12/25/21 16:00 Pulse Ox 97 12/25/21 16:00 12/25/21 12/25/21 12/25/21 06:59 14:59 22:59 Intake Total 600 / 600 Output Total 450 / 450 Balance 150 / 150 Weight last 48 hrs Weight 110.813 kg Weight 106.912 kg Data : 12/25/21 03:25 12/25/21 03:25 Micro: Microbiology 12/22/21 15:15 Gram Stain - Final Cerebrospinal Fluid CSF Culture - Final Cryptococcal Antigen - Final A&P Assessment and plan (1) Encephalopathy: This is currently much improved. Patient close to baseline mentation. He is awake alert oriented, able to have a conversation with family at bedside and also with me. Possibilities for AMS include withdrawal from opioids as he appears to be on large doses of oxycodone, NIKOLAY, hepatic encephalopathy. Leukocytosis currently resolved, although so far no obvious source of infection. On presumptive treatment with ceftriaxone and vancomycin, continue for now Lumbar puncture without concern for bacterial meningitis. Follow-up Microbiology results. Cryptococcal antigen negative. So far no growth of CSF. HSV studies pending. Holding gabapentin, for now due to possible toxic encephalopathy secondary to medication accumulation. Hyperammonemia noted, but unclear significance given no history of liver cirrhosis. May be trending towards hepatorenal syndrome. TSH normal. COVID-19 PCR negative. Chest x-ray not suggestive of pneumonia. Status: Acute (2) Muscle twitching: Asterixis, secondary to metabolic encephalopathy as above. Status: Acute (3) NIKOLAY (acute kidney injury): Improving. He is tolerating oral intake. Off IVF. Creatinine back at recent baseline of 2.5. Possibly prerenal, blood pressures on the soft side, he is continue taking his medications. Poor oral intake last several days. Also has been taking NSAIDs. Also taking losartan. Status: Acute (4) Leukocytosis: Now resolved. Follow-up blood cultures., Currently negative UA not suggestive of UTI. No suggestion of pneumonia. 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 Possibly hemoconcentration with dehydration. Received fluid challenge. Follow-up blood counts. Continue empiric antibiotics for now. Status: Acute (5) Hyperkalemia: Resolved. Hold losartan. Received fluid challenge. Status: Acute Plan Elevated troponin: 107-95.94. He denies chest pain or pressure. No trouble breathing. Suspect in the setting of renal injury demand ischemia with metabolic abnormalities. History of diastolic CHF: Not in exacerbation currently. Hold diuretic. CKD COPD: On chronic 2 L oxygen, not in exacerbation BPH DJD HTN Other chronic medical problems noted Attestations Medical Necessity Statement*: Mental status slowly improving, continued need for IV antibiotics, pending HSV PCR, PT OT assessment Coding Level of Care Code Acute Dental Practice Manager for Chg Fwd Diagnoses Encephalopathy G93.40 Muscle twitching R25.3 NIKOLAY (acute kidney injury) N17.9 Leukocytosis D72.829 Hyperkalemia E87.5
[2021-12-25 21:41] LABS: Glucose Point of Care 201 mg/dL (70-110)
[2021-12-25] MEDS: prednisoLONE 1% Op Susp 5 mL Btl 1 DROP EYE-BOTH (21:48)
[2021-12-26] VITALS (13 sets, daily range): BP systolic 129–186; BP diastolic 70–84; PULSE 65–111; RESP 16–18; TEMP 36.4–37.1; O2SAT 92–98
[2021-12-26 01:23] LABS: HSV 1 DNA NOT DETECTED; HSV 2 DNA NOT DETECTED; HSV Source CEREBROSPINAL FLUID
[2021-12-26] MEDS: oxyCODONE-APAP 10-325 mg Tablet 1 TAB PO ×4 (03:23→20:28)
[2021-12-26 03:31] LABS: Glucose Point of Care 129 mg/dL (70-110)
[2021-12-26 06:45] LABS: Glucose Point of Care 121 mg/dL (70-110)
[2021-12-26] MEDS: heparin 5,000 unit/mL INJ 1 mL 5000 UNIT SUBCUT ×2 (09:53→20:29)
[2021-12-26] MEDS: atorvastatin 40 mg Tablet 10 MG PO (09:53)
[2021-12-26] MEDS: pantoprazole DR 40 mg Tablet PO (10:20)
[2021-12-26] MEDS: tamsulosin 0.4 mg Capsule PO ×2 (10:20→18:36)
[2021-12-26] MEDS: finasteride 5 mg Tablet PO (10:21)
[2021-12-26 12:44] LABS: Glucose Point of Care 290 mg/dL (70-110)
[2021-12-26] MEDS: cefTRIAXone 2,000 MG in sodium chloride 0.9% (plus) 50 ML 100 MG IV (13:14)
[2021-12-26 17:53] LABS: Glucose Point of Care 233 mg/dL (70-110)
[2021-12-26] MEDS: insulin lispro 100 unit/1 mL SUBCUT (18:36)
--- NOTE | 2021-12-26 19:27 | PM.PN ---
Subjective Subjective: Patient's mentation is back to baseline today. He feels stronger today. Participated with physical therapy, was able to walk to the door and back with assistance. Has been able to self feed today. Vitals/I&O/Wt Last Vital Signs Temp 98.1 F 12/26/21 16:00 Pulse 111 H 12/26/21 16:00 Resp 18 12/26/21 16:00 BP 165/82 12/26/21 16:00 Pulse Ox 98 12/26/21 16:00 12/26/21 12/26/21 12/26/21 06:59 14:59 22:59 Intake Total 250 / 1140 240 / 240 Output Total 825 / 1525 Balance -575 / -385 240 / 240 Weight last 48 hrs Weight 112.219 kg Weight 110.813 kg Physical Exam Narrative: GEN: Awake, alert and oriented, no acute distress CVS: S1S2 N RS: CTA B/L Abd: Soft, nt/nd , bs+ OFFAL BALER: no focal neuro deficits Extremities: Minimal pitting edema bilaterally over ankles. Data : 12/25/21 03:25 12/25/21 03:25 A&P Assessment and plan (1) Encephalopathy: Status: Acute (2) Muscle twitching: Status: Acute (3) NIKOLAY (acute kidney injury): Status: Acute (4) Leukocytosis: Status: Acute (5) Hyperkalemia: Status: Acute Plan 66-year-old gentleman with history of CKD, rheumatoid arthritis, with recent admission due to NIKOLAY on CKD, CHF exacerbation. Currently admitted to the hospital since December 22, 2021 after presenting with ongoing progressive functional decline over the past month or so with patient reporting fatigue lethargy and increasing difficulty with ambulation. He was noted to be having acute metabolic encephalopathy, thought to be related to acute kidney injury, polypharmacy including multiple medications of gabapentin alongside of opiates. Uremia may have been additionally contributing given also NIKOLAY. Hyperammonemia with ammonia at 68 though in the absence of liver cirrhosis significance was unclear. Lumbar puncture was obtained at arrival she is thank you which was negative for signs of OFFAL BALER infection based on fluid analysis and Gram stain and culture. TSH has been normal. Covid PCR negative. Chest x-ray did not show any signs of current pneumonia. Patient did have high leukocytosis in the 30s range upon admission which is trended down to normal on December 25, 2021 with presumptive treatment with antibiotics including ceftriaxone and vancomycin. NIKOLAY was thought to be related possibly prerenal and use of NSAIDs as outpatient for his rheumatoid arthritis. NSAIDs were discontinued. Patient received gentle IV hydration. Son reports that patient was also taking furosemide twice a day which was not continued upon admission as intravascularly depleted. Blood cultures have remained negative. UA not suggestive of UTI. No signs of pneumonia. Patient is currently improving, baseline mentation now. Anemia noted with hemoglobin at 7.5, may be related to CKD. Opiates held and then gradually reintroduced. Overall patient has had improvement. We will recheck hemoglobin and creatinine with a.m. labs and if stable, plan to discharge patient home with home health services. Attestations Medical Necessity Statement*: Mentation now back at baseline, ambulating with PT OT today. Recheck hemoglobin and creatinine in the morning. 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
[2021-12-26 20:29] LABS: Glucose Point of Care 275 mg/dL (70-110)
[2021-12-26] MEDS: prednisoLONE 1% Op Susp 5 mL Btl 1 DROP EYE-BOTH (20:32)
[2021-12-27] VITALS (11 sets, daily range): BP systolic 130–190; BP diastolic 69–84; PULSE 73–105; RESP 16–18; TEMP 36.7–37.2; O2SAT 97–99
--- NOTE | 2021-12-27 00:21 | PC.NURSE ---
0015 Pt resting on back. Resp E/U. No distress.
[2021-12-27 02:47] LABS: Glucose Point of Care 189 mg/dL (70-110)
[2021-12-27] MEDS: oxyCODONE-APAP 10-325 mg Tablet 1 TAB PO ×3 (02:48→14:59)
[2021-12-27] MEDS: insulin lispro 100 unit/1 mL SUBCUT (02:49)
--- NOTE | 2021-12-27 03:58 | PC.NURSE ---
0400 Back pain improving from Pain med given. No distress.
[2021-12-27 05:56] LABS: Alanine Aminotransferase 8 U/L (0-41); Albumin Level 2.2 g/dL (3.5-5.2); Alkaline Phosphatase 121 IU/L (40-130); Anion Gap 11.9 (5-19); Aspartate Amino Transferase 7 U/L (0-40); Blood Urea Nitrogen 44 mg/dL (8-23); Calcium 7.6 mg/dL (8.5-10.5); Carbon Dioxide 23 mmol/L (22-29); Chloride 109 mmol/L (98-107); Globulin 2.4 g/dL (1.3-4.6); Glomerular Filtration Rate 47.1 mL/min (90-130); Glucose 111 mg/dL (65-115); Osmolality Calculated 302 mOsm/kg (285-295); Potassium 3.9 mmol/L (3.5-5.1); Sodium 140 mmol/L (136-145); Total Bilirubin 0.2 mg/dL (0.15-1.2); Total Protein 4.6 g/dL (6.6-8.7)
[2021-12-27 06:02] LABS: Folate Level 8.9 ng/mL (4.5-32.2)
[2021-12-27 06:05] LABS: Ferritin 378 ng/mL (30-400); Iron 42 ug/dL (59-158); Total Iron Binding Capacity 120 mcg/dl; Unsaturated Iron Binding 78 ug/dL (112-347); Vitamin B12 605 pg/mL (232-1245)
[2021-12-27 06:09] LABS: Creatinine Clr Calc Pharmacy 62.5638
[2021-12-27 07:08] LABS: Hemoglobin 7.5 g/dL (11.7-16.6); Mean Corpuscular Hemoglobin 26.9 pg (28.0-34.0); Mean Corpuscular Volume 89.6 fl (80-94); Platelet Count 319 10^3/cmm (130-400); Red Blood Count 2.79 10^6/uL (4.1-5.3); Red Cell Distribution Width 13.6 % (12.1-15.1); White Blood Count 11.7 10^3/uL (4.0-10.0)
[2021-12-27 07:30] LABS: Glucose Point of Care 104 mg/dL (70-110)
[2021-12-27] MEDS: finasteride 5 mg Tablet PO (07:52)
[2021-12-27] MEDS: atorvastatin 40 mg Tablet 10 MG PO (07:52)
[2021-12-27] MEDS: tamsulosin 0.4 mg Capsule PO (07:53)
[2021-12-27] MEDS: pantoprazole DR 40 mg Tablet PO (07:53)
[2021-12-27] MEDS: heparin 5,000 unit/mL INJ 1 mL 5000 UNIT SUBCUT (07:53)
[2021-12-27 07:57] LABS: Slide Review Slide Review Perform
[2021-12-27 07:58] LABS: Absolute Eosinophils 0.3 10^3/cmm (0.0-0.7); Absolute Segmented Neutrophil 9.1 10/cmm (1.6-7.1); Eosinophils 3 %; Lymphocytes 6 %; Lymphocytes Absolute 0.8 10^3/cmm (1.2-3.4); Monocytes Absolute 0.9 10^3/cmm (0.1-0.6); Segmented Neutrophils 78 %; Total Cells Counted 100 (0-100)
[2021-12-27 07:59] LABS: Absolute Neutrophil 9.1 10^3/cmm (1.4-6.5); Platelet Estimate Normal (Normal)
--- NOTE | 2021-12-27 13:58 | P.DS_ITS ---
Discharge Providers Date of Admission: 12/22/21 17:30 Date of Discharge: December 27, 2021 Attending Provider at Admission: Sam Santos Attending Provider at Discharge: Sonya Echevarria MD Primary Care Provider: Lev Gonzalez MD Diagnoses at Discharge Discharge Diagnosis (1) Encephalopathy: Status: Acute (2) Muscle twitching: Status: Acute (3) NIKOLAY (acute kidney injury): Status: Acute (4) Leukocytosis: Status: Acute (5) Hyperkalemia: Status: Acute Reason for Visit Reason for Visit: Weakness, R arm swelled, O2 mid 90s Hospital Course Hospital Course 66-year-old gentleman with history of CKD, rheumatoid arthritis, with recent admission due to NIKOLAY on CKD, CHF exacerbation.? Currently admitted to the hospital since December 22, 2021 after presenting with ongoing progressive functional decline over the past month or so with patient reporting fatigue lethargy and increasing difficulty with ambulation.? He was noted to be having acute metabolic encephalopathy, thought to be related to acute kidney injury, polypharmacy including multiple medications alongside of opiates.? Uremia may have been additionally contributing given also NIKOLAY.? Hyperammonemia with ammonia at 68 though in the absence of liver cirrhosis significance was unclear.? Lumbar puncture was obtained at arrival which was negative for signs of AIR DEFENSE ARTILLERY SENIOR SERGEANT infection based on fluid analysis and Gram stain and culture.? TSH has been normal.? Covid PCR negative.? Chest x-ray did not show any signs of current pneumonia.? Patient did have high leukocytosis in the 30s range upon admission which is trended down to normal on December 25, 2021 with presumptive treatment with antibiotics including ceftriaxone and vancomycin.? NIKOLAY was thought to be related possibly prerenal and use of NSAIDs as outpatient for his rheumatoid arthritis.? NSAIDs were discontinued.? Patient received gentle IV hydration.? Son reports that jose tyson was also taking furosemide twice a day which was not continued upon admission as intravascularly depleted. Unable to find the drug listed on his home medications. ? Blood cultures have remained negative.? UA not suggestive of UTI.? No signs of pneumonia. Patient is currently improving, baseline mentation now.? Anemia noted with hemoglobin at 7.5, may be related to CKD and iron deficiency. Opiates held and then gradually reintroduced once mental status improved. Overall patient has had improvement. PT/OT evaluated him and recommended continuation of home therapy. Same was arramged at discharge. For his rheumatoid arthritis, NSAIDs discontinued and referral provided to rheumatology clinic to explore further treatment options. Also recommend getting established with nephrology as outpatient given CKD with progressively increasing cr over the past year. He is already established with the cardiology service. Physical Exam Narrative: GEN: Awake, alert and oriented, no acute distress CVS: S1S2 N RS: CTA B/L all areas Abd: Soft, nt/nd , bs+ AIR DEFENSE ARTILLERY SENIOR SERGEANT: no focal neuro deficits EXT: minimal LE pitting edema Discharge Data Studies Completed and Pending Completed Studies During Hospitalization Category Date Time Status CT chest abd pel wo con Urgent Cat Scan 12/22/21 12:[address] head wo con* [id number] Urgent Cat Scan 12/22/21 11:35 Completed XR chest 1V portable [id number] Urgent Exams 12/22/21 11:35 Completed Pending at discharge Category Date Time Status Blood Culture Stat Lab 12/22/21 14:10 Results Miscellaneous Test Routine Lab 12/22/21 15:15 Received Miscellaneous Test Routine Lab 12/22/21 15:15 Received Radiology Impressions Chest X-Ray 12/22/21 11:35 IMPRESSION: No acute chest abnormality. Head CT 12/22/21 11:35 IMPRESSION: 1. No evidence of intracranial hemorrhage or mass effect. 2. Mild small vessel changes. Mild parenchymal volume loss. 3. No acute intracranial findings. Chest/Abdomen/Pelvis CT 12/22/21 12:19 IMPRESSION: 1. No acute pulmonary infiltrates. Lungs are well aerated. 2. Cholelithiasis. No gallbladder wall thickening or pericholecystic fluid. 3. Bilateral perinephric edema can be seen with renal insufficiency. Renal atrophy with malrotation RIGHT kidney. No hydronephrosis. 4. No obstructing renal or ureteral calculi. 5. A few enlarged lymph nodes in the central mesentery and RIGHT lower quadrant nonspecific but may be reactive. Largest lymph nodes measure 11-12 mm. 6. No other significant findings. Laboratory Results WBC 11.7 10^3/uL (4.0-10.0) H 12/27/21 05:05 RBC 2.79 10^6/uL (4.1-5.3) L 12/27/21 05:05 Hgb 7.5 g/dL (11.7-16.6) L 12/27/21 05:05 Hct 25.0 % (42.0-52.0) L 12/27/21 05:05 MCV 89.6 fl (80-94) 12/27/21 05:05 MCH 26.9 pg (28.0-34.0) L 12/27/21 05:05 MCHC 30.0 g/dL (30.0-36.0) 12/27/21 05:05 RDW 13.6 % (12.1-15.1) 12/27/21 05:05 Plt Count 319 10^3/cmm (130-400) 12/27/21 05:05 MPV 10.0 fL (7.4-10.4) 12/27/21 05:05 Neut % (Auto) 81.2 % 12/25/21 03:25 Lymph % (Auto) Not Reportable 12/27/21 05:05 [place] % (Auto) Not Reportable 12/27/21 05:05 Eos % (Auto) 1.1 % 12/25/21 03:25 Baso % (Auto) 0.1 % 12/25/21 03:25 Reticulocyte % (Auto) 1.0 % (0.5-2.0) 12/27/21 05:05 Neut # (Auto) 7.88 10^3/uL (1.8-7.7) H 12/25/21 03:25 Lymph # (Auto) Not Reportable 12/27/21 05:05 [place] # (Auto) Not Reportable 12/27/21 05:05 Eos # (Auto) 0.1 10^3/uL (0.0-0.8) 12/25/21 03:25 Baso # (Auto) 0.0 10^3/uL (0.0-0.1) 12/25/21 03:25 Nucleated RBC % (auto) 0 % 12/25/21 03:25 Total Counted 100 (0-100) 12/27/21 05:05 Atypical Lymphs % 1.0 % (0-5) 12/27/21 05:05 Absolute Neutrophils 9.1 10^3/cmm (1.4-6.5) H 12/27/21 05:05 Segmented Neutrophils 78 % 12/27/21 05:05 Abs Segm Neuts (Man) 9.1 10/cmm (1.6-7.1) H 12/27/21 05:05 Band Neutrophils 0.0 % 12/27/21 05:05 Abs Band Neuts (Man) 0.0 10^3/cmm (0.0-1.2) 12/27/21 05:05 Absolute Lymphocytes 0.8 10^3/cmm (1.2-3.4) L 12/27/21 05:05 Lymphocytes (Manual) 6 % 12/27/21 05:05 Monocytes (Manual) 8.0 % 12/27/21 05:05 Absolute Monocytes 0.9 10^3/cmm (0.1-0.6) H 12/27/21 05:05 Eosinophils (Manual) 3 % 12/27/21 05:05 Absolute Eosinophils 0.3 10^3/cmm (0.0-0.7) 12/27/21 05:05 Basophils (Manual) 0.0 % 12/27/21 05:05 Absolute Basophils 0.0 10^3/cmm (0.0-0.2) 12/27/21 05:05 Metamyelocytes 3.0 % 12/27/21 05:05 Myelocytes 1.0 % 12/27/21 05:05 Nucleated RBCs # 0.0 /100WBC 12/25/21 03:25 Platelet Estimate Normal (Normal) 12/27/21 05:05 Sodium 140 mmol/L (136-145) 12/27/21 05:05 Potassium 3.9 mmol/L (3.5-5.1) 12/27/21 05:05 Chloride 109 mmol/L (98-107) H 12/27/21 05:05 Carbon Dioxide 23 mmol/L (22-29) 12/27/21 05:05 Anion Gap 11.9 (5-19) 12/27/21 05:05 BUN 44 mg/dL (8-23) H 12/27/21 05:05 Creatinine 1.5 mg/dL (0.7-1.2) H 12/27/21 05:05 GFR Calculation 47.1 mL/min (90-130) L 12/27/21 05:05 Glucose 111 mg/dL (65-115) 12/27/21 05:05 POC Glucose 104 mg/dL (70-110) 12/27/21 06:25 Calculated Osmolality 302 mOsm/kg (285-295) H 12/27/21 05:05 Lactic Acid 1.7 mmol/L (0.5-2.2) 12/22/21 11:18 Calcium 7.6 mg/dL (8.5-10.5) L 12/27/21 05:05 Magnesium 2.1 mg/dL (1.7-2.3) 12/22/21 11:18 Iron 42 ug/dL (59-158) L 12/27/21 05:05 TIBC 120 mcg/dl 12/27/21 05:05 % Saturation 35.0 % (20-50) 12/27/21 05:05 Unsat Iron Binding 78 ug/dL (112-347) L 12/27/21 05:05 Ferritin 378 ng/mL (30-400) 12/27/21 05:05 Total Bilirubin 0.2 mg/dL (0.15-1.2) 12/27/21 05:05 AST 7 U/L (0-40) 12/27/21 05:05 ALT 8 U/L (0-41) 12/27/21 05:05 Alkaline Phosphatase 121 IU/L (40-130) 12/27/21 05:05 Ammonia 68 umol/L (16-60) H 12/22/21 11:18 Troponin T Baseline 107 ng/L (0-15) H* 12/22/21 12:00 Troponin T 120 Minute 95.94 ng/L (0-15) H 12/22/21 14:10 Delta Troponin T -11.06 ABS# (0-10) L 12/22/21 14:10 Troponin T Hi Sens 6Hr 87.83 ng/L (0-15) H 12/22/21 17:52 Troponin T Hi Sens 6Hr Delta -19.17 ng/L (0-12) L 12/22/21 17:52 C-Reactive Protein 166.5 mg/L (0.0-4.9) H 12/22/21 11:18 NT-Pro-B Natriuret Pep 1617 pg/mL (0-125) H 12/22/21 11:18 Total Protein 4.6 g/dL (6.6-8.7) L 12/27/21 05:05 Albumin 2.2 g/dL (3.5-5.2) L 12/27/21 05:05 Globulin 2.4 g/dL (1.3-4.6) 12/27/21 05:05 Vitamin B12 605 pg/mL (232-1245) 12/27/21 05:05 Folate 8.9 ng/mL (4.5-32.2) 12/27/21 05:05 Procalcitonin 0.88 ng/mL (0-0.5) H 12/22/21 11:18 TSH 1.91 uIU/mL (0.27-4.20) 12/22/21 11:18 Urine Color Yellow (Yellow) 12/22/21 17:15 Urine Appearance Clear (CLEAR) 12/22/21 17:15 Urine pH 5 (5-7) 12/22/21 17:15 Ur Specific Bledsoe 1.015 (1.005-1.030) 12/22/21 17:15 Urine Protein Trace (Negative) 12/22/21 17:15 Urine Glucose (UA) Norm (Normal) 12/22/21 17:15 Urine Ketones Negative (Negative) 12/22/21 17:15 Urine Blood Neg (Negative) 12/22/21 17:15 Urine Nitrate Negative (Negative) 12/22/21 17:15 Urine Bilirubin 1+ (Negative) H 12/22/21 17:15 Urine Urobilinogen Neg mg/dL (Negative) 12/22/21 17:15 Ur Leukocyte Esterase Negative (Negative) 12/22/21 17:15 Urine RBC 0-4 /hpf (0-2) H 12/22/21 17:15 Urine WBC 0-4 /hpf (0-5) H 12/22/21 17:15 Ur Squamous Epith Cells None /hpf (0-5) 12/22/21 17:15 Amorphous Sediment 1+ /hpf 12/22/21 17:15 Urine Bacteria None /hpf (NONE) 12/22/21 17:15 CSF Appearance Clear (CLEAR) 12/22/21 15:15 CSF Color Colorless (COLORLESS) 12/22/21 15:15 CSF WBC 1 /uL (0-5) 12/22/21 15:15 CSF RBC 0 10^3/uL (0-0) 12/22/21 15:15 CSF Mononuclear # Auto 0.000 10^3/uL (50-90) L 12/22/21 15:15 CSF Mononuclear WBCs % 0 % (50-90) L 12/22/21 15:15 CSF Polynuclear WBCs # 0.001 10^3/uL (0-10) 12/22/21 15:15 CSF Polynuclear WBCs % 100 % (0-10) H 12/22/21 15:15 CSF Diff Comment Yes 12/22/21 15:15 CSF Glucose 134 mg/dL (40-70) H 12/22/21 15:15 CSF LDH Cancelled 12/22/21 15:15 CSF Total Protein 25 mg/dL (15-45) 12/22/21 15:15 Vancomycin Trough 14.3 ug/mL (10-15) 12/25/21 13:52 Coronavirus 229E (PCR) Not detected (NOT DETECT) 12/22/21 13:15 Herpes Simplex Source Cerebrospinal fluid 12/22/21 15:15 SARS-CoV-2 (PCR) Not detected (NOT DETECT) 12/22/21 13:15 HSV 1 DNA Not detected 12/22/21 15:15 HSV 2 DNA Not detected 12/22/21 15:15 Vitals Last Vital Signs Temp 98.6 F 12/27/21 11:29 Pulse 92 12/27/21 11:29 Resp 18 12/27/21 11:29 BP 137/77 12/27/21 11:29 Pulse Ox 98 12/27/21 11:29 Discharge Plan Discharge Patient Disposition: Home Health Service Condition: Stable Prescriptions: New ferrous sulfate 325 mg (65 mg iron) tablet 325 mg PO DAILY Qty: 90 0RF Continued oxycodone 30 mg tablet 30 mg PO .5 TIMES A DAY PRN (Reason: pain) 30 Days Qty: 150 0RF magnesium chloride 64 mg tablet,delayed release (DR/EC) 64 mg PO DAILY 0RF tamsulosin [Flomax] 0.4 mg capsule 0.4 mg PO BID 0RF amlodipine 10 mg tablet 10 mg PO DAILY 0RF pantoprazole [Protonix] 40 mg tablet,delayed release (DR/EC) 40 mg PO BID 0RF finasteride 5 mg tablet 5 mg PO DAILY 0RF atorvastatin 10 mg tablet 10 mg PO DAILY 0RF prednisolone acetate 1 % drops,suspension 1 drp ophthalmic (eye) BEDTIME 0RF Rx Instructions: each eye albuterol sulfate 90 mcg/actuation HFA aerosol inhaler 2 puff INHALATION Q4H PRN (Reason: Shortness Of Breath) 0RF glimepiride 2 mg tablet 2 mg PO BID Qty: 0 0RF Discontinued indomethacin 50 mg capsule 100 mg PO BID 0RF isosorbide mononitrate 30 mg tablet extended release 24 hr 30 mg PO DAILY 0RF Discharge Orders: Discharge Order (Routine); Ordered 12/27/21 Ordered By: Sonya Echevarria Referrals: Matthew Seay MD [Referring] - 2 weeks (CKD, baseline creatinine 2.5-3.7, hyperkalemia. Needs to be established with nephrology FAXED OFFICE WITH REFERRAL OFFICE WILL CALL WITH APPOINTMENT) Genaro Grijalva MD [Physician] - 2 weeks (rheumatoid arthritis, maintained on NSAIDs for many years, now developing CKD. Alternate treatment options. Has not seen rheumatology in the past OFFICE WILL CALL WITH APPOINTMENT) Lev Gonzalez MD [Primary Care Provider] - 02/19/22 3:45 pm (hospital discharge follow up ) Discharge Diet: Advance as tolerated and Usual diet Discharge Activity: As per PT/OT instructions Patient Instructions: Iron Supplements (By mouth), Hyperkalemia (DC), Leuk ocytosis (DC), Opioid Safety Discharge Attestations Time Spent in Discharge Care*: other Status at Discharge: Cognitive status at discharge: cognitively intact , Behavioral status at discharge: cooperative , Quality Metrics Clinical Quality Measures [ No reported AMI, CVA or VTE this stay] Coding Level of Care Code Acute Chg FW DC note Diagnoses Encephalopathy G93.40 Muscle twitching R25.3 NIKOLAY (acute kidney injury) N17.9 Leukocytosis D72.829 Hyperkalemia E87.5
[2021-12-29 21:28] LABS: Glucose Point of Care 141 mg/dL (70-110)
== END 2021-12-27 15:29 | disposition home health service (06) | DRG 682 ==
LOC: ER 15:42 → ER IP 17:57 → MEDSURG 20:36
PROVIDERS: Admitting Provider Internal Medicine; Emergency Provider Emergency Medicine; PCP Family Medicine; Visit Provider Student in an Organized Health Care Education/Training Program
DX: N17.8 Other acute kidney failure (principal); G92.8 Other toxic encephalopathy; I13.0 Hypertensive heart and chronic kidney disease with heart failure and stage 1 through stage 4 chronic kidney disease, or unspecified chronic kidney disease; I50.32 Chronic diastolic (congestive) heart failure; J96.11 Chronic respiratory failure with hypoxia; E87.1 Hypo-osmolality and hyponatremia; E72.20 Disorder of urea cycle metabolism, unspecified; T39.95XA Adverse effect of unspecified nonopioid analgesic, antipyretic and antirheumatic, initial encounter; N14.0 Analgesic nephropathy; N18.9 Chronic kidney disease, unspecified; E78.5 Hyperlipidemia, unspecified; Z99.81 Dependence on supplemental oxygen; I48.91 Unspecified atrial fibrillation; M51.36 Other intervertebral disc degeneration, lumbar region; M48.062 Spinal stenosis, lumbar region with neurogenic claudication; J44.9 Chronic obstructive pulmonary disease, unspecified; M96.1 Postlaminectomy syndrome, not elsewhere classified; M47.817 Spondylosis without myelopathy or radiculopathy, lumbosacral region; Z98.1 Arthrodesis status; Z87.891 Personal history of nicotine dependence; D64.9 Anemia, unspecified; E87.5 Hyperkalemia; E86.0 Dehydration; Z79.51 Long term (current) use of inhaled steroids; Z79.891 Long term (current) use of opiate analgesic; M06.9 Rheumatoid arthritis, unspecified; N40.0 Benign prostatic hyperplasia without lower urinary tract symptoms; R27.8 Other lack of coordination; Z87.01 Personal history of pneumonia (recurrent); T42.6X5A Adverse effect of other antiepileptic and sedative-hypnotic drugs, initial encounter
CPT/HCPCS: 36415; 36416; 62270; 70450; 71045; 71250; 74176; 80048; 80053; 80202; 80500; 81001; 82140; 82607; 82728; 82746; 82945; 82962; 83540; 83550; 83605; 83735; 83880; 84145; 84157; 84443; 84484; 85007; 85025; 85045; 86140; 87040; 87070; 87075; 87205; 87327; 87530; 87635; 89050; 93005; 94664; 96365; 96367; 96372; 97116; 97161; 97167; 97535; 99285; C9113; J0696; J1644; J1815; J2060; J3370; J7030; J7040

== ENCOUNTER 2021-12-31 12:27 | Emergency (ER) | payer MEDICARE, SELFPAY ==
[2021-12-31 12:40] VITALS: BP 101/65; PULSE 71; RESP 18; TEMP 36.3; O2SAT 92; BMI 33.5
--- NOTE | 2021-12-31 12:58 | CTR_ITS ---
PROCEDURE INFORMATION: Exam: CT Head Without Contrast Exam date and time: 12/31/2021 12:58 PM Age: 66 years old Clinical indication: Weakness, extremity; Bilateral; Additional info: Gait instability TECHNIQUE: Imaging protocol: Computed tomography of the head without contrast. Sagittal and coronal reformatted images were created and reviewed. Radiation optimization: All CT scans at this facility use at least one of these dose optimization techniques: automated exposure control; mA and/or kV adjustment per patient size (includes targeted exams where dose is matched to clinical indication); or iterative reconstruction. COMPARISON: CT head wo con* [id number] 12/22/2021 12:33 PM RADIATION DOSE METRICS: Total DLP (mGy-cm): 904.41 FINDINGS: Brain: No acute intracranial hemorrhage. No acute infarct. No intra-axial or extra-axial masses. Coyle-white matter differentiation is preserved. No cerebral edema. No extra-axial fluid collections. No midline shift. No evidence for Chiari 1 malformation. Stable mild atrophy of the brain parenchyma. Cerebral ventricles: No hydrocephalus. Paranasal sinuses: Visualized paranasal sinuses are clear. Mastoid air cells: Visualized mastoid air cells are clear. Orbital cavity: Deformity of the right globe suggesting sequela of remote trauma. Vasculature: Atherosclerotic changes in the visualized arteries. Bones/joints: Stable deformity of the left zygomatic arch suggesting an old, healed fracture. Soft tissues: No acute abnormality of the extracranial soft tissues. CT/CT head wo con* [id number] IMPRESSION: 1. No acute abnormality of the brain. 2. Stable mild atrophy of the brain parenchyma. 3. Incidental/nonacute findings are listed in the report.
--- NOTE | 2021-12-31 12:59 | ECG_ITS ---
[facility] Test Date: 2021-12-31 Pat Name: Uday Julien Department: Room: Gender: Male Tearoom Host: : [id number] Requested By: Micheal South Order Number: [id number] Velia MD: Colin Monique M.D. Measurements Intervals [place] Rate: 63 P: 32 MA: 133 QRS: 53 QRSD: 98 T: 67 QT: 449 QTc: 461 Interpretive Statements SINUS RHYTHM Compared to ECG 12/22/2021 17:29:42 No significant changes Electronically Signed On 01-01-2022 8:51:27 POWER BALLAST MACHINE OPERATOR by Colin Monique M.D. [email or web address]
--- NOTE | 2021-12-31 13:46 | W.ED.GENADLT ---
HPI - General Adult General: Chief complaint: Weakness Stated complaint: bilateral leg swelling Time Seen by Provider: 12/31/21 12:46 History of Present Illness: Patient is a 66-year-old male with history of CHF, CKD, COPD recent hospital admission for pneumonia/CHF exacerbation who was discharged on 12/27/2021 presenting to the emergency room for concerns of lightheadedness and lower extremity swelling. Patient tells me since yesterday night, he has experienced sensation of lightheadedness mild vertigo. Patient normally walks with a walker however this morning, has noticed difficulty walking. Patient has no other focal neurological deficit including arm or leg weakness, facial numbness, facial droop, diplopia, amaurosis fugax, or other focal neurological complaints. Patient has no associate chest pain shortness of breath or palpitation or lightheadedness. Patient is currently on 80 mg of Lasix daily. Patient has noticed mild swelling in the leg today despite taking his medicine. Patient has no complaints of chest pain, no chest pain or shortness of breath, nausea/vomiting, fever/chills, cough, runny nose, sore throat, generalized weakness, diarrhea, melena hematochezia. Patient has no urinary complaints. Onset: 1 day ago Duration:ongoing Location:home Severity:moderate Associated symptoms: Deny chest pain, dyspnea, nausea, rash, palpitations or vomiting Review of Systems Const: Denies: fever(s) or chills Eyes: Denies: change in vision ENMT: Denies: mouth pain Card: Denies: chest pain or palpitations Resp: Denies: dyspnea or non-productive cough GI: Denies: abdominal pain, nausea, vomiting or diarrhea : Denies: dysuria Musc: Reports: other (+ankle swelling); Denies: extremity pain Skin/Breast: Denies: rash or new lesions Neuro: Reports: other (+lightheadedness); Denies: weakness in extremities Psych: Reports: other (Normal mood) Fernando/Lymph: Denies: easy bruising PFS ED PFSH: Medical History Atrial tachycardia Chronic low back pain Chronic SI joint pain CKD (chronic kidney disease) COPD (chronic obstructive pulmonary disease) Degeneration of lumbar intervertebral disc Diastolic CHF Encounter for long-term use of opiate analgesic Hypertensive emergency Long-term use of high-risk medication Opioid contract exists Postlaminectomy syndrome, not elsewhere classified Spinal stenosis, lumbar region with neurogenic claudication Spondylosis without myelopathy or radiculopathy, lumbosacral region Uncontrolled hypertension Surgical History History of lumbar laminectomy for spinal cord decompression Dr. Srivastava 03/28/17: Left L4-L5, L5-S1 laminectomy,discectomy,foraminotomy History of tonsillectomy S/P knee surgery right S/P shoulder surgery Left Status post hemilaminotomy 06/17/17 Dr. Srivastava: Left L4-L5 hemilaminotomy/discectomy/ foraminotomy. reexploration Family History Mother Hypertension mother at age 60 of c.h.f. Social History Smoking and tobacco status: former smoker Quit status (tobacco): has quit using tobacco Second hand smoke exposure: No Smoking risk assessment/counseling performed?: No Alcohol intake: former Desire information about alcohol rehabilitation?: No Counseling given: Yes Desire information about substance/drug rehabilitation?: No Counseling given: No Adopted: No Caregiver/support person: Yes (TO ) Lives independently: Yes Household members: spouse Marital status: History of recent travel: No Physical Exam Const: COMMON NORMALS: alert HENMT: COMMON NORMALS: atraumatic HEAD & SCALP: atraumatic MOUTH: moist mucous membranes not abnormal Eye: COMMON NORMALS: EOMs intact bilaterally and conjunctivae normal CONJUNCTIVA: Yes conjunctivae normal Neck/C-Spine: COMMON NORMALS: full ROM and supple Resp: COMMON NORMALS: normal respiratory effort and clear to auscultation bilaterally AUSCULTATION: clear to auscultation bilaterally Cardio: COMMON NORMALS: regular rate RATE: regular rate GI: COMMON NORMALS: Soft to palpation and non-tender PALPATION: Yes Soft to palpation Extremity: COMMON NORMALS: full ROM OTHER: 1+ pitting edema in the ankles/anterior shins b/l Neuro: SENSORIUM/ORIENTATION: Yes alert MOTOR EXAM: No Abnormal motor strength present and Other motor observations present (no focal motor deficits) OTHER: Mental status? Awake, alert, and oriented to self, year, month, location, and situation.? Following simple axial and appendicular commands.? Has appropriate fund of knowledge, comprehension, and insight.? Able to recall and understands pertinent aspects of medical history and current treatment status.? ? Language? Speech is fluent without word-finding difficulties.? Intact naming, expression, studio receptionist, and repetition.? ? Cranial nerves? 2,3,4,6: PERRL, EOMI with no nystagmus. 5: Intact sensation to light touch, symmetric? 7: Smile symmetrical, no facial droop.? 8: Hearing grossly intact.? 9,10: Normal palate movement.? 11: Normal strength in trapezius bilaterally 12: Tongue protrudes midline.? ? Motor examination? Normal bulk & tone. Strength as follows (R/L): Delts (5/5), Biceps (5/5), Triceps (5/5), Wrist ext (5/5), hip flexors (5/5), plantarflexors (5/5), dorsiflexors (5/5). ? Sensation? Light Touch: Grossly intact and equal in upper and lower extremities bilaterally? Romberg: Negative.? Distal joint position sense intact ? Coordination? Wnarqk-wm-hjbf-finger movements intact without dysmetria or past-pointing.? Rapid fingertaps: preserved amplitude without decriment.? No tremor, myoclonus or truncal ataxia.? ? Gait/stance? +off balance gait Psych: COMMON NORMALS: speech normal SPEECH: Yes normal speech MOOD & AFFECT: Yes euthymic mood Course Vital Signs: Vital signs: Vital Signs Temperature 98.2 F 12/31/21 16:10 Pulse Rate 72 12/31/21 16:10 Respiratory Rate 16 12/31/21 16:10 Blood Pressure 110/54 12/31/21 16:10 Pulse Oximetry 93 12/31/21 16:10 [facility] - General Adult Medical Decision Making Patient is a 66-year-old male with history of CKD, COPD, heart failure who presents the emergency room for evaluation of new onset of lightheadedness, mild vertical sensation, and leg swelling. On exam, patient has 1+ lower extremity edema. Patient also noted to have mild gait instability. Given presentation, will evaluate for near syncope etiologies including posterior fossa pathologies and cardiac workup. Work-up: CBC, CMP, lipase, troponin x2, BMP, x-ray chest, EKG x2, CT brain Intervention: observation and potline monitor Initially on arrival, patient was found to have a glucose of 30. Patient is AAO x3 at that time, patient tolerated juice with improvement glucose to 70. Patient received 125 cc of D10. Glucose continues to be elevated. Patient received 50 mcg of octreotide IV. Patient has had serial glucose checks with him all within normal limit. After correcting glucose, patient's gait improved significantly. Delta troponin less than 5. CT brain negative for any acute findings. Cr of 2.4 which is higher recent discharged value of 1.5. BNP of 2K which is lower than recent CHF exacerbation. Reassessment, patient is now AAOx3, neuro exam is completely intact. Patient is able to ambulate without any difficulty. At 3:53pm I performed shared decision-making with patient regarding admission versus discharge today for findings of NIKOLAY on CKD and new signs of volume overload, and patient prefers to be discharged. I have discussed given patient's risk factors that he would better off admitted to the hospital since he is progressing to have new heart failure. Upon hearing this, patient elects to go home since today is [facility] Saturday and wants to watch the game with his family. I explained the risks of leaving the hospital today including lethal arrhythmia, hypoxia secondary to heart failure, progression of kidney failures, OR, and even . Patient verbalizes understanding of these discussed risk and elect for the alternative of following up earlier next week for stress test on Saturday or Saturday and to see Dr. Gonzalez in clinic tomorrow afternon. Patient verbalizes understanding to return for any worsening symptoms including chest pain, dyspnea, fatigue, arm pain/jaw pain/back pain or any new or concerning issues. I have discussed case with Dr. Gonzalez at 3:55 PM who recommended the patient to be follow-up in his clinic tomorrow afternoon for reassessment of his numbers. Disposition: Discharge. Patient counseled regarding diagnostic impression, treatment plan. Patient given ED strict return precautions to return for continuation, worsening, or development of new symptoms. Instructed to f/u w/ Dr. Gonzalez tomorrow afternoon regarding symptoms today and new acute kidney injuries. Patient verbalized understanding. Lab Data : 12/31/21 13:25 12/31/21 13:[address] 12/31/21 12:58 IMPRESSION: 1. No acute abnormality of the brain. 2. Stable mild atrophy of the brain parenchyma. 3. Incidental/nonacute findings are listed in the report. Chest X-Ray 12/31/21 16:09 IMPRESSION: 1. No acute cardiopulmonary process. 2. Incidental/nonacute findings are listed in the report. Laboratory Results WBC 13.2 10^3/uL (4.0-10.0) H 12/31/21 13:25 RBC 2.93 10^6/uL (4.1-5.3) L 12/31/21 13:25 Hgb 7.9 g/dL (11.7-16.6) L 12/31/21 13: Hct 27.1 % (42.0-52.0) L 12/31/21 13: MCV 92.5 fl (80-94) 12/31/21: MCH 27.0 pg (28.0-34.0) L 12/31/21: MCHC 29.2 g/dL (30.0-36.0) L 12/31/21 13: RDW 14.6 % (12.1-15.1) 12/31/21 13: Plt Count 530 10^3/cmm (130-400) H 12/31/21 13: MPV 9.0 fL (7.4-10.4) 12/31/21 13: Neut % (Auto) 74.1 % 12/31/21 13: Lymph % (Auto) 12.1 % 12/31/21 13:25 Eddy % (Auto) 6.1 % 12/31/21 13: Eos % (Auto) 2.3 % 12/31/21 13: Baso % (Auto) 0.6 % 12/31/21 13: Neut # (Auto) 9.81 10^3/uL (1.8-7.7) H 12/31/21: Lymph # (Auto) 1.6 10^3/uL (0.8-4.8) 12/31/21 13:25 Eddy # (Auto) 0.8 10^3/uL (0.2-0.9) 12/31/21 13: Eos # (Auto) 0.3 10^3/uL (0.0-0.8) 12/31/21 13:25 Baso # (Auto) 0.1 10^3/uL (0.0-0.1) 12/31/21 13:25 Nucleated RBC % (auto) 0 % 12/31/21 13:25 Nucleated RBCs # 0.0 /100WBC 12/31/21 13:25 Sodium 139 mmol/L (136-145) 12/31/21 13:25 Potassium 3.9 mmol/L (3.5-5.1) 12/31/21 13:25 Chloride 103 mmol/L (98-107) 12/31/21 13:25 Carbon Dioxide 28 mmol/L (22-29) 12/31/21 13:25 Anion Gap 11.9 (5-19) 12/31/21 13:25 BUN 24 mg/dL (8-23) H 12/31/21 13:25 Creatinine 2.3 mg/dL (0.7-1.2) H 12/31/21 13:25 GFR Calculation 28.8 mL/min (90-130) L 12/31/21 13:25 Glucose 37 mg/dL (65-115) L* 12/31/21 13:25 POC Glucose 128 mg/dL (70-110) H 12/31/21 15:22 Calculated Osmolality 289 mOsm/kg (285-295) 12/31/21 13:25 Calcium 7.1 mg/dL (8.5-10.5) L 12/31/21 13:25 Total Bilirubin 0.2 mg/dL (0.15-1.2) 12/31/21 13:25 AST 11 U/L (0-40) 12/31/21 13:25 ALT 13 U/L (0-41) 12/31/21 13:25 Alkaline Phosphatase 87 IU/L (40-130) 12/31/21 13:25 Troponin T Baseline 82 ng/L (0-15) H 12/31/21 13:25 Troponin T 120 Minute 73.66 ng/L (0-15) H 12/31/21 15:16 Delta Troponin T -8.34 ABS# (0-10) L 12/31/21 15:16 NT-Pro-B Natriuret Pep 2471 pg/mL (0-125) H 12/31/21 13:25 Total Protein 5.3 g/dL (6.6-8.7) L 12/31/21 13:25 Albumin 2.9 g/dL (3.5-5.2) L 12/31/21 13:25 Globulin 2.4 g/dL (1.3-4.6) 12/31/21 13:25 Lipase 25 U/L (13-60) 12/31/21 13:25 Imaging Data Other Imaging: Radiologist's impression: [facility] [address] [place] [address] XRay Report Signed Patient: Uday Julien Unit #: [id number] : 1955 Age/Sex: 66 / M ADM Date: 12/31/21 Loc: ER Room/Bed: Attending Dr: Ordering Provider/Ordering MD: Micheal South MD Date of Service: 12/31/21 Procedure(s): XR chest 1V portable [id number] Accession Number(s): [id number] Report Number: [id number] PROCEDURE INFORMATION: Exam: XR Chest Exam date and time: 12/31/2021 4:09 PM Age: 66 years old Clinical indication: Dyspnea TECHNIQUE: Imaging protocol: XR of the chest. Views: 1 view. COMPARISON: CT chest abd pel wo con 12/22/2021 12:40 PM FINDINGS: Lungs: Lungs are clear bilaterally. Pleural spaces: No pleural effusion. No pneumothorax. Heart/Mediastinum: Stable mild enlargement of the cardiac silhouette. Mediastinal contours are unremarkable. Bones/joints: Degenerative changes in the spine and shoulders. Bones are diffusely osteopenic. XR/XR chest 1V portable [id number] IMPRESSION: 1. No acute cardiopulmonary process. 2. Incidental/nonacute findings are listed in the report. ? Dictated By: Dariela King MD Signed By: Dariela King MD Signed Date/Time: 12/31/21 1640 DD/ 1609 [facility] [address] [place] [id number] Scan Report Signed Patient: Uday Julien Unit #: [id number] : 1955 Age/Sex: 66 / M ADM Date: 12/31/21 Loc: ER Room/Bed: Attending Dr: Ordering Provider/Ordering MD: Micheal South MD Date of Service: 12/31/21 Procedure(s): CT head wo con* [id number] Accession Number(s): [id number] Report Number: [id number] PROCEDURE INFORMATION: Exam: CT Head Without Contrast Exam date and time: 12/31/2021 12:58 PM Age: 66 years old Clinical indication: Weakness, extremity; Bilateral; Additional info: Gait instability TECHNIQUE: Imaging protocol: Computed tomography of the head without contrast. Sagittal and coronal reformatted images were created and reviewed. Radiation optimization: All CT scans at this facility use at least one of these dose optimization techniques: automated exposure control; mA and/or kV adjustment per patient size (includes targeted exams where dose is matched to clinical indication); or iterative reconstruction. COMPARISON: CT head wo con* [id number] 12/22/2021 12:33 PM RADIATION DOSE METRICS: Total DLP (mGy-cm): 904.41 FINDINGS: Brain: No acute intracranial hemorrhage. No acute infarct. No intra-axial or extra-axial masses. Coyle-white matter differentiation is preserved. No cerebral edema. No extra-axial fluid collections. No midline shift. No evidence for Chiari 1 malformation. Stable mild atrophy of the brain parenchyma. Cerebral ventricles: No hydrocephalus. Paranasal sinuses: Visualized paranasal sinuses are clear. Mastoid air cells: Visualized mastoid air cells are clear. Orbital cavity: Deformity of the right globe suggesting sequela of remote trauma. Vasculature: Atherosclerotic changes in the visualized arteries. Bones/joints: Stable deformity of the left zygomatic arch suggesting an old, healed fracture. Soft tissues: No acute abnormality of the extracranial soft tissues. CT/CT head wo con* [id number] IMPRESSION: 1. No acute abnormality of the brain. 2. Stable mild atrophy of the brain parenchyma. 3. Incidental/nonacute findings are listed in the report. ? Dictated By: Dariela King MD Signed By: Dariela King MD Signed Date/Time: 12/31/21 1549 DD/ 1258 Discharge Plan Discharge Patient Disposition: Home Clinical Impression: Hypoglycemia, CKD (chronic kidney disease), Leg swelling Condition: Stable Prescriptions: No Action oxycodone 30 mg tablet 30 mg PO .5 TIMES A DAY PRN (Reason: pain) 30 Days Qty: 150 0RF magnesium chloride 64 mg tablet,delayed release (DR/EC) 64 mg PO DAILY 0RF tamsulosin [Flomax] 0.4 mg capsule 0.4 mg PO BID 0RF amlodipine 10 mg tablet 10 mg PO DAILY 0RF pantoprazole [Protonix] 40 mg tablet,delayed release (DR/EC) 40 mg PO BID 0RF finasteride 5 mg tablet 5 mg PO DAILY 0RF atorvastatin 10 mg tablet 10 mg PO DAILY 0RF prednisolone acetate 1 % drops,suspension 1 drp ophthalmic (eye) BEDTIME 0RF Rx Instructions: each eye albuterol sulfate 90 mcg/actuation HFA aerosol inhaler 2 puff INHALATION Q4H PRN (Reason: Shortness Of Breath) 0RF glimepiride 2 mg tablet 2 mg PO BID Qty: 0 0RF ferrous sulfate 325 mg (65 mg iron) tablet 325 mg PO DAILY Qty: 90 0RF Lasix 40 mg tablet 40 mg PO DAILY Qty: 30 0RF Discharge Orders: Discharge ED (Routine); Ordered 12/31/21 Ordered By: Micheal South Referrals: Lev Gonzalez MD [Primary Care Provider] - Discharge Diet: As Directed and Cardiac Discharge Activity: Increase activity as tolerated Patient Instructions: Heart Failure (ED), Chronic Kidney Disease (ED) Activity Restrictions/Additional Instructions: Come back to the emergency room if your chest pain worsens, have any fever or chills, worsening shortness of breath, worsening exertional lightheadedness, or any new or concerning complaints. Please follow up with Dr. Gonzalez tomorrow afternoon. Call his clinic for appointment time. Coding Level of Care Code ED Solvent Plant Operator for Chg Fwd Exam Comprehensive
[2021-12-31 13:48] LABS: Basophils # 0.1 10^3/uL (0.0-0.1); Basophils % 0.6 %; Eosinophils # 0.3 10^3/uL (0.0-0.8); Eosinophils % 2.3 %; Hematocrit 27.1 % (42.0-52.0); Hemoglobin 7.9 g/dL (11.7-16.6); Lymphocytes # 1.6 10^3/uL (0.8-4.8); Lymphocytes % 12.1 %; Mean Corpuscular HGB Conc 29.2 g/dL (30.0-36.0); Mean Corpuscular Volume 92.5 fl (80-94); Monocytes # 0.8 10^3/uL (0.2-0.9); Monocytes % 6.1 %; Neutrophils # 9.81 10^3/uL (1.8-7.7); Neutrophils % 74.1 %; Nucleated Red Blood Cells % 0 %; Platelet Count 530 10^3/cmm (130-400); Red Blood Count 2.93 10^6/uL (4.1-5.3); Red Cell Distribution Width 14.6 % (12.1-15.1); White Blood Count 13.2 10^3/uL (4.0-10.0)
[2021-12-31 14:11] LABS: Troponin(5th) Baseline 82 ng/L (0-15)
[2021-12-31 14:21] LABS: Alanine Aminotransferase 13 U/L (0-41); Albumin Level 2.9 g/dL (3.5-5.2); Alkaline Phosphatase 87 IU/L (40-130); Anion Gap 11.9 (5-19); Aspartate Amino Transferase 11 U/L (0-40); Blood Urea Nitrogen 24 mg/dL (8-23); Calcium 7.1 mg/dL (8.5-10.5); Carbon Dioxide 28 mmol/L (22-29); Chloride 103 mmol/L (98-107); Globulin 2.4 g/dL (1.3-4.6); Glomerular Filtration Rate 28.8 mL/min (90-130); Lipase 25 U/L (13-60); NT Pro B Type Natriuretic Pept 2471 pg/mL (0-125); Osmolality Calculated 289 mOsm/kg (285-295); Potassium 3.9 mmol/L (3.5-5.1); Sodium 139 mmol/L (136-145); Total Bilirubin 0.2 mg/dL (0.15-1.2); Total Protein 5.3 g/dL (6.6-8.7)
[2021-12-31] MEDS: octreotide 100 mcg/mL SDV 50 MCG IVP (14:37)
[2021-12-31] MEDS: dextrose 10% 1,000 ML 125 ML IV (14:37)
[2021-12-31 14:38] LABS: Glucose 37 mg/dL (65-115)
--- NOTE | 2021-12-31 14:59 | ECG_ITS ---
[facility] Test Date: 2021-12-31 Pat Name: Uday Julien Department: Room: Gender: Male Orthopedic Rn: : 1955 Requested By: Micheal South Order Number: [id number] Velia MD: Colin Monique M.D. Measurements Intervals [place] Rate: 59 P: 62 ID: [id number] QRS: 60 QRSD: 98 T: 70 QT: 435 QTc: 433 Interpretive Statements SINUS BRADYCARDIA Compared to ECG 12/31/2021 13:40:41 Sinus rhythm no longer present Electronically Signed On 01-01-2022 9:02:00 DIVIDER OPERATOR by Colin Monique M.D. [id number]
[2021-12-31 15:13] VITALS: BP 110/53; PULSE 77; RESP 14; TEMP 36.8; O2SAT 96
[2021-12-31 15:26] LABS: Glucose Point of Care 128 mg/dL (70-110)
[2021-12-31 15:41] LABS: Troponin 5 2HR 73.66 ng/L (0-15)
--- NOTE | 2021-12-31 16:09 | XRR_ITS ---
PROCEDURE INFORMATION: Exam: XR Chest Exam date and time: 12/31/2021 4:09 PM Age: 66 years old Clinical indication: Dyspnea TECHNIQUE: Imaging protocol: XR of the chest. Views: 1 view. COMPARISON: CT chest abd pel wo con 12/22/2021 12:40 PM FINDINGS: Lungs: Lungs are clear bilaterally. Pleural spaces: No pleural effusion. No pneumothorax. Heart/Mediastinum: Stable mild enlargement of the cardiac silhouette. Mediastinal contours are unremarkable. Bones/joints: Degenerative changes in the spine and shoulders. Bones are diffusely osteopenic. XR/XR chest 1V portable [id number] IMPRESSION: 1. No acute cardiopulmonary process. 2. Incidental/nonacute findings are listed in the report.
[2021-12-31 16:10] VITALS: BP 110/54; PULSE 72; RESP 16; TEMP 36.8; O2SAT 93
[2022-01-01 16:59] LABS: Glucose Point of Care 37 mg/dL (70-110)
[2022-01-01 16:59] LABS: Glucose Point of Care 40 mg/dL (70-110)
[2022-01-01 16:59] LABS: Glucose Point of Care 73 mg/dL (70-110)
== END 2021-12-31 16:10 | disposition home or self-care (01) ==
PROVIDERS: Emergency Provider Emergency Medicine; PCP Family Medicine
DX: E16.2 Hypoglycemia, unspecified (principal); I13.0 Hypertensive heart and chronic kidney disease with heart failure and stage 1 through stage 4 chronic kidney disease, or unspecified chronic kidney disease; N18.9 Chronic kidney disease, unspecified; I50.30 Unspecified diastolic (congestive) heart failure; M79.89 Other specified soft tissue disorders; Z79.84 Long term (current) use of oral hypoglycemic drugs; Z87.891 Personal history of nicotine dependence
CPT/HCPCS: 36416; 70450; 71045; 80053; 82962; 83690; 83880; 84484; 85025; 93005; 96361; 96372; 96374; 99284; J1610; J2354

== ENCOUNTER → 2022-01-18 09:43 | Outpatient (BNVA) | payer MEDICARE, SELFPAY | PROVIDERS: PCP Family Medicine; Visit Provider Internal Medicine | DX: M19.90 Unspecified osteoarthritis, unspecified site (principal); M51.36 Other intervertebral disc degeneration, lumbar region; Z11.59 Encounter for screening for other viral diseases; Z11.1 Encounter for screening for respiratory tuberculosis; N18.9 Chronic kidney disease, unspecified; D64.9 Anemia, unspecified; I25.10 Atherosclerotic heart disease of native coronary artery without angina pectoris; Z87.891 Personal history of nicotine dependence; I10 Essential (primary) hypertension; I47.1 Supraventricular tachycardia; M45.0 Ankylosing spondylitis of multiple sites in spine; M19.041 Primary osteoarthritis, right hand | CPT/HCPCS: 72100; 72202; 73120; 86200; 86431; 86480; 86704; 86803; 86812; 87340; 99204 ==

== ENCOUNTER 2022-01-18 11:35 | Outpatient (CLI) | payer MEDICARE, SELFPAY ==
--- NOTE | 2022-01-18 12:03 | XR_ITS ---
WS: [email or web address] Right hand, 2 views, 01/18/2022 Clinical Data: D64.9 - Anemia, unspecified Comparison: None. Findings: No fractures or dislocations are seen. The soft tissues are unremarkable. The joint space s are normal There is a small exostosis of the distal radial aspect of the right first metacarpal. There is minima l periarticular calcification at the right first MCP joint. 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
--- NOTE | 2022-01-18 12:03 | XR_ITS ---
WS: [email or web address] Left hand, 2 views, 01/18/2022 Clinical Data: D64.9 - Anemia, unspecified Comparison: None. Findings: No fractures or dislocations are seen. The soft tissues are unremarkable. There is periarticular calc ification on the radial aspect of the left second MCP joint. There are calcifications on the dorsal a spect of the wrist adjacent to the triquetrum. There is calcification of the triradiate cartilage. XR/XR hand LT 2V [id number] Impression: Periarticular calcifications of the left second MCP joint and the triquetrum an d triradiate cartilage.
--- NOTE | 2022-01-18 12:03 | XR_ITS ---
WS: [email or web address] Lumbar spine, 3 views, 01/18/2022 Clinical Data: D64.9 - Anemia, unspecified Comparison: Lateral lumbar spine, 06/17/2017. Findings: No compression fractures or subluxation is seen. There is degenerative disc narrowing at L4-L5 and L5 -S1 with anterior osteophyte formation from L2 through L5. There are left hemilaminectomies at L4 and L5. The transverse processes and SI joints are normal. XR/XR lumbar spine 2-3V* [id number] Impression: 1. Degenerative disc narrowing at L4-L5 and L5-S1 with accompanying laminectomi es. 2. Osteoarthritic spurring L2-L3 5.
--- NOTE | 2022-01-18 12:03 | XR_ITS ---
WS: [email or web address] Sacroiliac joints, 3 views, 01/18/2022 Clinical Data: D64.9 - Anemia, unspecified Comparison: SI joints, 05/06/2013. Findings: The SI joints are normal in width. No erosion, sclerosis or destruction is seen. There are no fractur es or dislocations. The adjacent visualized pelvis and hips are unremarkable. XR/XR sacroiliac jts m 3V [id number] Impression: Negative SI joints.
[2022-01-18 14:17] LABS: Hepatitis B Core AB, Total Non-Reactive (Nonreactive); Hepatitis B Surface Antigen Non-Reactive (Nonreactive); Hepatitis C Virus Antibody Non-Reactive (Nonreactive)
[2022-01-19 13:57] LABS: Cyclic Citrullinated Peptide <16 UNITS
[2022-01-22 15:22] LABS: HLA-B27 NEGATIVE (NEGATIVE)
[2022-01-23 15:06] LABS: Quantiferon Mitogen 4.49 IU/mL; Quantiferon Nil 0.09 IU/mL; Quantiferon Plus TB1 0.02 IU/mL; Quantiferon Plus TB2 <0.00 IU/mL; Quantiferon TB Gold NEGATIVE (NEGATIVE)
== END 2022-01-18 11:36 | disposition home or self-care (01) ==
PROVIDERS: PCP Family Medicine; Visit Provider Internal Medicine
DX: D64.9 Anemia, unspecified (principal); I10 Essential (primary) hypertension; I47.1 Supraventricular tachycardia; M19.90 Unspecified osteoarthritis, unspecified site; M45.0 Ankylosing spondylitis of multiple sites in spine; M19.041 Primary osteoarthritis, right hand
CPT/HCPCS: 72100; 72202; 73120; 86200; 86431; 86480; 86704; 86803; 86812; 87340

== ENCOUNTER → 2022-01-25 14:43 | Outpatient (BNVA) | payer MEDICARE, SELFPAY | PROVIDERS: PCP Family Medicine; Visit Provider Internal Medicine | DX: M06.9 Rheumatoid arthritis, unspecified (principal); M19.90 Unspecified osteoarthritis, unspecified site; Z79.899 Other long term (current) drug therapy; N17.9 Acute kidney failure, unspecified; N18.9 Chronic kidney disease, unspecified; D64.9 Anemia, unspecified | CPT/HCPCS: 99214 ==

== ENCOUNTER 2022-01-29 14:15 | Outpatient (CLI) | payer MEDICARE, SELFPAY ==
[2022-01-29 14:48] LABS: Basophils % 0.3 %; Eosinophils % 0.2 %; Hematocrit 29.6 % (42.0-52.0); Hemoglobin 8.9 g/dL (11.7-16.6); Lymphocytes # 0.9 10^3/uL (0.8-4.8); Lymphocytes % 7.9 %; Mean Corpuscular HGB Conc 30.1 g/dL (30.0-36.0); Mean Corpuscular Hemoglobin 26.8 pg (28.0-34.0); Mean Corpuscular Volume 89.2 fl (80-94); Mean Platelet Volume 9.1 fL (7.4-10.4); Monocytes # 0.7 10^3/uL (0.2-0.9); Neutrophils # 10.07 10^3/uL (1.8-7.7); Neutrophils % 84.9 %; Nucleated Red Blood Cells % 0 %; Platelet Count 565 10^3/cmm (130-400); Red Blood Count 3.32 10^6/uL (4.1-5.3); Red Cell Distribution Width 14.7 % (12.1-15.1); White Blood Count 11.9 10^3/uL (4.0-10.0)
[2022-01-29 15:09] LABS: Alanine Aminotransferase 8 U/L (0-41); Albumin Level 3.8 g/dL (3.5-5.2); Alkaline Phosphatase 91 IU/L (40-130); Anion Gap 14.6 (5-19); Aspartate Amino Transferase 7 U/L (0-40); Blood Urea Nitrogen 51 mg/dL (8-23); C Reactive Protein 6.6 mg/L (0.0-4.9); Calcium 8.3 mg/dL (8.5-10.5); Carbon Dioxide 29 mmol/L (22-29); Chloride 99 mmol/L (98-107); Erythrocyte Sedimentation Rate 38 mm/hr (0-10); Globulin 3.5 g/dL (1.3-4.6); Glomerular Filtration Rate 33.7 mL/min (90-130); Glucose 236 mg/dL (65-115); Osmolality Calculated 307 mOsm/kg (285-295); Potassium 4.6 mmol/L (3.5-5.1); Sodium 138 mmol/L (136-145); Total Bilirubin 0.2 mg/dL (0.15-1.2); Total Protein 7.3 g/dL (6.6-8.7)
== END 2022-01-29 14:16 | disposition home or self-care (01) ==
LOC: LAB 14:17
PROVIDERS: PCP Family Medicine; Visit Provider Internal Medicine
DX: G89.29 Other chronic pain (principal); J81.1 Chronic pulmonary edema; J96.01 Acute respiratory failure with hypoxia; M53.3 Sacrococcygeal disorders, not elsewhere classified; M06.9 Rheumatoid arthritis, unspecified; M47.817 Spondylosis without myelopathy or radiculopathy, lumbosacral region; Z79.891 Long term (current) use of opiate analgesic; Z79.899 Other long term (current) drug therapy
CPT/HCPCS: 80053; 85025; 85651; 86140

== ENCOUNTER 2022-03-26 14:12 | Outpatient (CLI) | payer MEDICARE, SELFPAY ==
[2022-03-26 14:44] LABS: Basophils # 0.1 10^3/uL (0.0-0.1); Basophils % 0.5 %; Eosinophils # 0.2 10^3/uL (0.0-0.8); Eosinophils % 1.1 %; Hematocrit 32.8 % (42.0-52.0); Hemoglobin 10.5 g/dL (11.7-16.6); Lymphocytes # 1.3 10^3/uL (0.8-4.8); Lymphocytes % 8.1 %; Mean Corpuscular Hemoglobin 27.1 pg (28.0-34.0); Mean Corpuscular Volume 84.8 fl (80-94); Mean Platelet Volume 9.1 fL (7.4-10.4); Monocytes # 0.7 10^3/uL (0.2-0.9); Monocytes % 4.6 %; Neutrophils # 13.62 10^3/uL (1.8-7.7); Neutrophils % 85.1 %; Nucleated Red Blood Cells % 0 %; Platelet Count 430 10^3/cmm (130-400); Red Blood Count 3.87 10^6/uL (4.1-5.3); Red Cell Distribution Width 14.6 % (12.1-15.1)
[2022-03-26 14:56] LABS: Erythrocyte Sedimentation Rate 29 mm/hr (0-10)
[2022-03-26 15:11] LABS: Alanine Aminotransferase 9 U/L (0-41); Albumin Level 3.9 g/dL (3.5-5.2); Alkaline Phosphatase 67 IU/L (40-130); Aspartate Amino Transferase 9 U/L (0-40); Blood Urea Nitrogen 70 mg/dL (8-23); C Reactive Protein 3.5 mg/L (0.0-4.9); Calcium 9.4 mg/dL (8.5-10.5); Carbon Dioxide 23 mmol/L (22-29); Chloride 96 mmol/L (98-107); Globulin 2.7 g/dL (1.3-4.6); Glomerular Filtration Rate 30.2 mL/min (90-130); Glucose 228 mg/dL (65-115); Osmolality Calculated 308 mOsm/kg (285-295); Sodium 135 mmol/L (136-145); Total Bilirubin 0.2 mg/dL (0.15-1.2); Total Protein 6.6 g/dL (6.6-8.7)
[2022-03-26 15:14] LABS: Anion Gap 20.5 (5-19); Potassium 4.5 mmol/L (3.5-5.1)
== END 2022-03-26 14:13 | disposition home or self-care (01) ==
LOC: LAB 14:16
PROVIDERS: Internal Medicine; PCP Family Medicine; Visit Provider Internal Medicine Cardiovascular Disease
DX: M06.9 Rheumatoid arthritis, unspecified (principal); Z79.891 Long term (current) use of opiate analgesic; Z79.899 Other long term (current) drug therapy
CPT/HCPCS: 36415; 80053; 85025; 85651; 86140

== ENCOUNTER → 2022-03-29 15:00 | Outpatient (BNVA) | payer MEDICARE, SELFPAY | PROVIDERS: PCP Family Medicine; Visit Provider Internal Medicine | DX: M06.9 Rheumatoid arthritis, unspecified (principal); Z79.899 Other long term (current) drug therapy | CPT/HCPCS: 99213; 99214 ==

== ENCOUNTER 2022-04-06 09:12 | Outpatient (CLI) | payer MEDICARE, SELFPAY ==
--- NOTE | 2022-04-06 09:16 | US_ITS ---
WS: [email or web address] Abdomen ultrasound, 04/06/2022 Clinical Data: CHRONIC KIDNEY DZ Comparison: Renal ultrasound, 10/19/2021. CT chest abdomen pelvis, 12/22/2021. Findings: The pancreas shows no cyst, pseudocyst or evidence of pancreatitis. The liver shows no cysts, masses or dilated intrahepatic ducts. The gallbladder has stones or sludge. The wall measures 0.2 cm with no pericholecystic fluid. The co mmon bile duct is 0.6 cm and no intraductal abnormalities are noted. The right kidney is 12.5 cm. No cysts, masses or hydronephrosis is seen. The left kidney is 11.9 cm. No cysts, masses or hydronephrosis is seen. Review of the CT chest abdome n pelvis shows no mass of the superior pole of the left kidney. The abdominal aorta is not dilated and the inferior vena cava has normal flow. No vascular abnormalit ies are seen. The spleen shows no intrasplenic masses or capsular abnormalities. US/US abdomen complete* [id number] Impression: 1. Cholelithiasis. 2. No other abnormalities of the abdomen are seen.
[2022-04-06 09:25] LABS: Basophils # 0.1 10^3/uL (0.0-0.1); Basophils % 0.7 %; Eosinophils # 0.3 10^3/uL (0.0-0.8); Eosinophils % 2.9 %; Hematocrit 33.3 % (42.0-52.0); Hemoglobin 10.3 g/dL (11.7-16.6); Lymphocytes # 1.9 10^3/uL (0.8-4.8); Lymphocytes % 17.6 %; Mean Corpuscular HGB Conc 30.9 g/dL (30.0-36.0); Mean Corpuscular Hemoglobin 26.4 pg (28.0-34.0); Mean Corpuscular Volume 85.4 fl (80-94); Mean Platelet Volume 9.4 fL (7.4-10.4); Monocytes # 0.9 10^3/uL (0.2-0.9); Monocytes % 8.5 %; Neutrophils # 7.44 10^3/uL (1.8-7.7); Nucleated Red Blood Cells % 0 %; Platelet Count 353 10^3/cmm (130-400); White Blood Count 10.6 10^3/uL (4.0-10.0)
[2022-04-06 09:33] LABS: Erythrocyte Sedimentation Rate 26 mm/hr (0-10)
[2022-04-06 09:42] LABS: Alanine Aminotransferase 7 U/L (0-41); Albumin Level 3.9 g/dL (3.5-5.2); Alkaline Phosphatase 62 IU/L (40-130); Anion Gap 16.9 (5-19); Aspartate Amino Transferase 8 U/L (0-40); Blood Urea Nitrogen 63 mg/dL (8-23); C Reactive Protein 5.2 mg/L (0.0-4.9); Calcium 8.9 mg/dL (8.5-10.5); Carbon Dioxide 26 mmol/L (22-29); Chloride 99 mmol/L (98-107); Globulin 2.9 g/dL (1.3-4.6); Glomerular Filtration Rate 27.3 mL/min (90-130); Glucose 178 mg/dL (65-115); Osmolality Calculated 308 mOsm/kg (285-295); Potassium 3.9 mmol/L (3.5-5.1); Sodium 138 mmol/L (136-145); Total Bilirubin 0.2 mg/dL (0.15-1.2); Total Protein 6.8 g/dL (6.6-8.7)
== END 2022-04-06 09:13 | disposition home or self-care (01) ==
LOC: RAD 09:14
PROVIDERS: Internal Medicine; PCP Family Medicine; Visit Provider Internal Medicine Nephrology
DX: M06.9 Rheumatoid arthritis, unspecified (principal); Z79.899 Other long term (current) drug therapy
CPT/HCPCS: 76700; 80053; 85025; 85651; 86140

== ENCOUNTER 2022-04-19 11:48 | Outpatient (CLI) | payer MEDICARE, SELFPAY ==
[2022-04-19 13:34] LABS: Alanine Aminotransferase 10 U/L (0-41); Albumin Level 3.9 g/dL (3.5-5.2); Alkaline Phosphatase 65 IU/L (40-130); Anion Gap 18.4 (5-19); Aspartate Amino Transferase 11 U/L (0-40); Blood Urea Nitrogen 51 mg/dL (8-23); Calcium 9.1 mg/dL (8.5-10.5); Carbon Dioxide 26 mmol/L (22-29); Chloride 93 mmol/L (98-107); Globulin 2.9 g/dL (1.3-4.6); Glomerular Filtration Rate 28.7 mL/min (90-130); Glucose 213 mg/dL (65-115); Osmolality Calculated 296 mOsm/kg (285-295); Potassium 4.4 mmol/L (3.5-5.1); Sodium 133 mmol/L (136-145); Total Bilirubin 0.2 mg/dL (0.15-1.2); Total Protein 6.8 g/dL (6.6-8.7)
== END 2022-04-19 11:49 | disposition home or self-care (01) ==
LOC: LAB 11:51
PROVIDERS: PCP Family Medicine; Visit Provider Internal Medicine
DX: M53.3 Sacrococcygeal disorders, not elsewhere classified (principal); G89.29 Other chronic pain; J81.1 Chronic pulmonary edema; J96.01 Acute respiratory failure with hypoxia
CPT/HCPCS: 80053

== ENCOUNTER → 2022-06-25 08:31 | Outpatient (BNVA) | payer MEDICARE, SELFPAY | PROVIDERS: PCP Family Medicine; Visit Provider Internal Medicine | DX: M06.9 Rheumatoid arthritis, unspecified (principal) | CPT/HCPCS: 99214 ==

== ENCOUNTER 2022-12-06 12:24 | Outpatient (CLI) | payer MEDICARE, SELFPAY ==
[2022-12-06 13:04] LABS: Basophils # 0.1 10^3/uL (0.0-0.1); Basophils % 0.8 %; Eosinophils # 0.3 10^3/uL (0.0-0.8); Eosinophils % 2.9 %; Erythrocyte Sedimentation Rate 12 mm/hr (0-10); Hematocrit 40.1 % (42.0-52.0); Hemoglobin 12.2 g/dL (11.7-16.6); Lymphocytes # 1.6 10^3/uL (0.8-4.8); Lymphocytes % 18.2 %; Mean Corpuscular HGB Conc 30.4 g/dL (30.0-36.0); Mean Corpuscular Hemoglobin 28.2 pg (28.0-34.0); Mean Corpuscular Volume 92.6 fl (80-94); Mean Platelet Volume 9.4 fL (7.4-10.4); Monocytes % 11.5 %; Neutrophils # 5.88 10^3/uL (1.8-7.7); Neutrophils % 66.3 %; Nucleated Red Blood Cells % 0 %; Platelet Count 281 10^3/cmm (130-400); Red Blood Count 4.33 10^6/uL (4.1-5.3); Red Cell Distribution Width 15.2 % (12.1-15.1); White Blood Count 8.9 10^3/uL (4.0-10.0)
[2022-12-06 13:16] LABS: Alanine Aminotransferase 8 U/L (0-41); Albumin Level 3.6 g/dL (3.5-5.2); Alkaline Phosphatase 66 U/L (40-130); Aspartate Amino Transferase 9 U/L (0-40); Blood Urea Nitrogen 37 mg/dL (8-23); C Reactive Protein 3.6 mg/L (0.0-4.9); Calcium 9.1 mg/dL (8.5-10.5); Carbon Dioxide 23 mmol/L (22-29); Chloride 106 mmol/L (98-107); Globulin 2.9 g/dL (1.3-4.6); Glucose 155 mg/dL (65-115); Osmolality Calculated 298 mOsm/kg (285-295); Sodium 138 mmol/L (136-145); Total Bilirubin 0.2 mg/dL (0.15-1.2); Total Protein 6.5 g/dL (6.6-8.7)
[2022-12-06 13:18] LABS: Anion Gap 14.6 (5-19); Potassium 5.6 mmol/L (3.5-5.1)
== END 2022-12-06 12:25 | disposition home or self-care (01) ==
LOC: LAB 12:27
PROVIDERS: PCP Family Medicine; Visit Provider Internal Medicine
DX: I10 Essential (primary) hypertension (principal)
CPT/HCPCS: 36415; 80053; 85025; 85651; 86140

== ENCOUNTER → 2022-12-11 11:03 | Outpatient (BNVA) | payer MEDICARE, SELFPAY | PROVIDERS: PCP Family Medicine; Visit Provider Internal Medicine | DX: M06.9 Rheumatoid arthritis, unspecified (principal); G89.29 Other chronic pain; M54.50 Low back pain, unspecified | CPT/HCPCS: 99214 ==

== ENCOUNTER 2023-04-04 12:12 | Outpatient (CLI) | payer MEDICARE, SELFPAY ==
[2023-04-04 12:51] LABS: Basophils # 0.1 10^3/uL (0.0-0.1); Basophils % 0.8 %; Eosinophils # 0.3 10^3/uL (0.0-0.8); Eosinophils % 3.3 %; Hematocrit 37.9 % (42.0-52.0); Hemoglobin 11.6 g/dL (11.7-16.6); Lymphocytes # 1.7 10^3/uL (0.8-4.8); Lymphocytes % 18.6 %; Mean Corpuscular HGB Conc 30.6 g/dL (30.0-36.0); Mean Corpuscular Volume 91.3 fl (80-94); Mean Platelet Volume 9.2 fL (7.4-10.4); Monocytes # 0.9 10^3/uL (0.2-0.9); Monocytes % 9.7 %; Neutrophils # 6.24 10^3/uL (1.8-7.7); Neutrophils % 67.4 %; Nucleated Red Blood Cells % 0 %; Platelet Count 306 10^3/cmm (130-400); Red Blood Count 4.15 10^6/uL (4.1-5.3); White Blood Count 9.3 10^3/uL (4.0-10.0)
[2023-04-04 12:54] LABS: Erythrocyte Sedimentation Rate 21 mm/hr (0-10)
[2023-04-04 13:10] LABS: Alanine Aminotransferase 10 U/L (0-41); Albumin Level 3.6 g/dL (3.5-5.2); Alkaline Phosphatase 63 U/L (40-130); Anion Gap 14.4 (5-19); Aspartate Amino Transferase 11 U/L (0-40); Blood Urea Nitrogen 44 mg/dL (8-23); C Reactive Protein 5.1 mg/L (0.0-4.9); Calcium 8.1 mg/dL (8.5-10.5); Carbon Dioxide 19 mmol/L (22-29); Chloride 110 mmol/L (98-107); Globulin 2.5 g/dL (1.3-4.6); Glomerular Filtration Rate 46.8 mL/min (90-130); Glucose 121 mg/dL (65-115); Osmolality Calculated 298 mOsm/kg (285-295); Potassium 5.4 mmol/L (3.5-5.1); Sodium 138 mmol/L (136-145); Total Bilirubin 0.2 mg/dL (0.15-1.2); Total Protein 6.1 g/dL (6.6-8.7)
[2023-04-04 13:11] LABS: Phosphorus 4.2 mg/dL (2.5-4.5)
[2023-04-04 13:15] LABS: Calcium 8.3 mg/dL (8.5-10.5)
[2023-04-04 13:16] LABS: Creatinine Urine, Random 32 mg/dL (39-259); Microalbumin Random Urine 35 ug/dL (0-20)
[2023-04-04 13:22] LABS: Microalbum Creatinine Ratio Ur 1094 mg/dL (0-20)
[2023-04-04 13:22] LABS: Parathyroid Hormone 92.6 pg/mL (15-65)
[2023-04-04 13:27] LABS: 25 Hydroxy Vitamin D 18 ng/mL (30-100)
== END 2023-04-04 12:13 | disposition home or self-care (01) ==
LOC: LAB 12:20
PROVIDERS: PCP Family Medicine; Referring Provider Internal Medicine; Visit Provider Registered Nurse
DX: N18.31 Chronic kidney disease, stage 3a (principal); M06.9 Rheumatoid arthritis, unspecified; M19.90 Unspecified osteoarthritis, unspecified site
CPT/HCPCS: 36415; 80053; 82044; 82306; 82310; 83970; 84100; 85025; 85651; 86140

== ENCOUNTER → 2023-04-29 13:31 | Outpatient (BNVA) | payer MEDICARE, SELFPAY | PROVIDERS: PCP Family Medicine; Visit Provider Internal Medicine | DX: M06.9 Rheumatoid arthritis, unspecified (principal); G89.29 Other chronic pain; N18.30 Chronic kidney disease, stage 3 unspecified; R79.89 Other specified abnormal findings of blood chemistry | CPT/HCPCS: 99214 ==

== ENCOUNTER → 2023-07-03 13:34 | Outpatient (BNVA) | payer MEDICARE, SELFPAY | PROVIDERS: PCP Family Medicine; Visit Provider Otolaryngology | DX: H93.13 Tinnitus, bilateral (principal) | CPT/HCPCS: 99202 ==

== ENCOUNTER → 2023-10-14 14:18 | Outpatient (BNVA) | payer MEDICARE, SELFPAY | PROVIDERS: PCP Family Medicine; Visit Provider Internal Medicine | DX: M06.9 Rheumatoid arthritis, unspecified (principal); G89.29 Other chronic pain; N18.30 Chronic kidney disease, stage 3 unspecified; R79.89 Other specified abnormal findings of blood chemistry | CPT/HCPCS: 99214 ==

== ENCOUNTER 2024-03-25 12:30 | Outpatient (CLI) | payer MEDICARE, SELFPAY ==
[2024-03-25 13:16] LABS: Basophils # 0.1 10^3/uL (0.0-0.1); Basophils % 0.6 %; Eosinophils # 0.4 10^3/uL (0.0-0.8); Eosinophils % 4.1 %; Hematocrit 37.9 % (37-53); Lymphocytes # 1.9 10^3/uL (0.8-4.8); Lymphocytes % 18.3 %; Mean Corpuscular HGB Conc 31.4 g/dL (30-55); Mean Corpuscular Hemoglobin 28.5 pg (27-33); Mean Corpuscular Volume 90.9 fl (82-101); Mean Platelet Volume 9.2 fL (7.4-10.4); Monocytes % 9.9 %; Neutrophils # 6.78 10^3/uL (1.8-7.7); Neutrophils % 66.4 %; Nucleated Red Blood Cells % 0 %; Platelet Count 288 10^3/cmm (157-399); Red Blood Count 4.17 10^6/uL (3.85-5.65); Red Cell Distribution Width 13.6 % (12.1-15.1); White Blood Count 10.21 10^3/uL (3.29-11.43)
[2024-03-25 13:38] LABS: Alanine Aminotransferase 9 U/L (0-41); Albumin Level 3.5 g/dL (3.5-5.2); Alkaline Phosphatase 63 U/L (40-130); Aspartate Amino Transferase 10 U/L (0-40); C Reactive Protein 5.5 mg/L (0.0-4.9); Globulin 2.9 g/dL (1.3-4.6); Total Bilirubin 0.2 mg/dL (0.15-1.2); Total Protein 6.4 g/dL (6.6-8.7)
[2024-03-25 13:55] LABS: Hepatitis B Core AB, Total Non-Reactive (Nonreactive); Hepatitis B Surface Antigen Non-Reactive (Nonreactive); Hepatitis C Virus Antibody Non-Reactive (Nonreactive)
[2024-03-28 11:29] LABS: Quantiferon Mitogen 8.86 IU/mL; Quantiferon Nil 0.02 IU/mL; Quantiferon Plus TB1 0.02 IU/mL; Quantiferon TB Gold NEGATIVE (NEGATIVE)
== END 2024-03-25 12:31 | disposition home or self-care (01) ==
LOC: LAB 12:31
PROVIDERS: Internal Medicine Rheumatology; PCP Family Medicine
DX: Z79.899 Other long term (current) drug therapy (principal); M06.9 Rheumatoid arthritis, unspecified; N18.30 Chronic kidney disease, stage 3 unspecified
CPT/HCPCS: 36415; 80076; 82565; 85025; 86140; 86480; 86704; 86803; 87340

== ENCOUNTER 2024-05-12 12:11 | Outpatient (CLI) | payer MEDICARE, SELFPAY ==
[2024-05-12 12:52] LABS: Basophils # 0.1 10^3/uL (0.0-0.1); Basophils % 0.7 %; Eosinophils # 0.2 10^3/uL (0.0-0.8); Eosinophils % 2.1 %; Hematocrit 39.4 % (37-53); Lymphocytes # 1.4 10^3/uL (0.8-4.8); Lymphocytes % 16.3 %; Mean Corpuscular HGB Conc 31.5 g/dL (30-55); Mean Corpuscular Hemoglobin 28.9 pg (27-33); Mean Corpuscular Volume 91.8 fl (82-101); Mean Platelet Volume 9.5 fL (7.4-10.4); Monocytes # 0.8 10^3/uL (0.2-0.9); Monocytes % 8.9 %; Neutrophils # 6.12 10^3/uL (1.8-7.7); Neutrophils % 71.4 %; Nucleated Red Blood Cells % 0 %; Platelet Count 269 10^3/cmm (157-399); Red Blood Count 4.29 10^6/uL (3.85-5.65); Red Cell Distribution Width 14.3 % (12.1-15.1); White Blood Count 8.57 10^3/uL (3.29-11.43)
[2024-05-12 13:13] LABS: Creatinine Urine, Random 50 mg/dL (39-259)
[2024-05-12 13:15] LABS: Albumin Level 3.7 g/dL (3.5-5.2); Anion Gap 12.4 (5-19); Blood Urea Nitrogen 30 mg/dL (8-23); Calcium 8.6 mg/dL (8.5-10.5); Calcium 8.9 mg/dL (8.5-10.5); Carbon Dioxide 22 mmol/L (22-29); Chloride 109 mmol/L (98-107); Glomerular Filtration Rate 33.5 mL/min (90-130); Glucose 143 mg/dL (65-115); Phosphorus 3.4 mg/dL (2.5-4.5); Potassium 5.4 mmol/L (3.5-5.1); Sodium 138 mmol/L (136-145)
[2024-05-12 13:16] LABS: Alanine Aminotransferase 9 U/L (0-41); Albumin Level 3.8 g/dL (3.5-5.2); Alkaline Phosphatase 56 U/L (40-130); Aspartate Amino Transferase 10 U/L (0-40); Globulin 2.7 g/dL (1.3-4.6); Glomerular Filtration Rate 31.7 mL/min (90-130); Total Bilirubin 0.3 mg/dL (0.15-1.2); Total Protein 6.5 g/dL (6.6-8.7)
[2024-05-12 13:22] LABS: Parathyroid Hormone 80.7 pg/mL (15-65)
[2024-05-12 13:29] LABS: Microalbum Creatinine Ratio Ur 2260 mg/dL (0-20); Microalbumin Random Urine 113 ug/dL (0-20)
[2024-05-12 13:30] LABS: 25 Hydroxy Vitamin D 45 ng/mL (30-100)
== END 2024-05-12 12:12 | disposition home or self-care (01) ==
LOC: LAB 12:16
PROVIDERS: Internal Medicine Rheumatology; PCP Family Medicine; Visit Provider Registered Nurse
DX: M47.817 Spondylosis without myelopathy or radiculopathy, lumbosacral region (principal); Z79.899 Other long term (current) drug therapy; E55.9 Vitamin D deficiency, unspecified
CPT/HCPCS: 36415; 80069; 80076; 82044; 82306; 82310; 82565; 83970; 85025; 86140

== ENCOUNTER 2024-05-28 13:18 | Outpatient (CLI) | payer MEDICARE, SELFPAY ==
[2024-05-28 13:50] LABS: Anion Gap 16.1 (5-19); Blood Urea Nitrogen 50 mg/dL (8-23); Calcium 8.8 mg/dL (8.5-10.5); Carbon Dioxide 22 mmol/L (22-29); Chloride 106 mmol/L (98-107); Glomerular Filtration Rate 33.5 mL/min (90-130); Glucose 136 mg/dL (65-115); Magnesium 1.8 mg/dL (1.7-2.3); Osmolality Calculated 303 mOsm/kg (285-295); Potassium 5.1 mmol/L (3.5-5.1); Sodium 139 mmol/L (136-145)
== END 2024-05-28 13:19 | disposition home or self-care (01) ==
PROVIDERS: PCP Family Medicine; Visit Provider Nurse Practitioner
DX: G56.03 Carpal tunnel syndrome, bilateral upper limbs (principal); G56.23 Lesion of ulnar nerve, bilateral upper limbs
CPT/HCPCS: 36415; 80048; 83735; 95910

== ENCOUNTER → 2024-07-14 11:38 | Outpatient (BNVA) | payer MEDICARE, SELFPAY | PROVIDERS: PCP Family Medicine; Visit Provider Internal Medicine Rheumatology | DX: M05.79 Rheumatoid arthritis with rheumatoid factor of multiple sites without organ or systems involvement (principal); Z79.899 Other long term (current) drug therapy; Z71.85 Encounter for immunization safety counseling; N18.9 Chronic kidney disease, unspecified | CPT/HCPCS: 99214 ==

== ENCOUNTER 2024-08-21 10:17 | Outpatient (CLI) | payer MEDICARE, SELFPAY ==
--- NOTE | 2024-08-21 10:20 | US_ITS ---
WS: [email or web address] RENAL ULTRASOUND HISTORY: CHRONIC KIDNEY DISEASE COMPARISON: None available. TECHNIQUE: 2-D and color Doppler imaging of the kidney submitted. Right kidney: 13.9 cm x 4.1 cm x 5.5 cm. Cortex: 1.4 cm Difficult evaluation of the kidney. The kidney is markedly echogenic. No renal pelvis or corticomedul yoko junction identified. There are a few small acquired cysts within the cortex. No mass. Left kidney: 12.3 cm x 4.9 cm x 5.2 cm. Cortex: 1.5 cm LEFT kidney is slightly better visualized than the RIGHT kidney. Very minimal increased echogenicity. No cortical thinning. There are a few small acquired cysts. No solid masses. Aorta: Normal. Urinary Bladder: Minimally distended. No intraluminal filling defect. US/US renal BI* [id number] IMPRESSION: 1. Severe chronic medical renal disease RIGHT kidney. There is complete loss o f the normal echogenicity of the kidney. A few small acquired cysts. 2. LEFT kidney with minimal increased echogenicity. No atrophy or cortical thi nning. No hydronephrosis.
== END 2024-08-21 10:18 | disposition home or self-care (01) ==
LOC: RAD 10:17
PROVIDERS: PCP Family Medicine; Visit Provider Registered Nurse
DX: N18.32 Chronic kidney disease, stage 3b (principal); R33.9 Retention of urine, unspecified
CPT/HCPCS: 76770

== ENCOUNTER → 2024-12-23 12:57 | Outpatient (BNVA) | payer MEDICARE, SELFPAY | PROVIDERS: PCP Family Medicine; Visit Provider Nurse Practitioner | DX: G56.03 Carpal tunnel syndrome, bilateral upper limbs (principal) | CPT/HCPCS: 73110 ==

== ENCOUNTER 2024-12-24 13:52 | Outpatient (CLI) | payer MEDICARE, SELFPAY ==
[2024-12-24 14:08] LABS: Basophils # 0.1 10^3/uL (0.0-0.1); Basophils % 0.6 %; Eosinophils # 0.2 10^3/uL (0.0-0.8); Eosinophils % 1.6 %; Hematocrit 38.2 % (37-53); Lymphocytes # 1.6 10^3/uL (0.8-4.8); Lymphocytes % 13.5 %; Mean Corpuscular HGB Conc 31.4 g/dL (30-55); Mean Corpuscular Volume 92.3 fl (82-101); Mean Platelet Volume 9.2 fL (7.4-10.4); Monocytes # 0.7 10^3/uL (0.2-0.9); Monocytes % 6.1 %; Neutrophils % 77.5 %; Nucleated Red Blood Cells % 0 %; Platelet Count 385 10^3/cmm (157-399); Red Blood Count 4.14 10^6/uL (3.85-5.65); Red Cell Distribution Width 14.1 % (12.1-15.1); White Blood Count 12.11 10^3/uL (3.29-11.43)
[2024-12-24 14:10] LABS: Bilirubin Urine Negative (Negative); Blood Urine Negative (Negative); Glucose Urine UA 2+ (Normal); Ketones Urine Negative (Negative); Leukocyte Esterase Urine Negative (Negative); Nitrate Urine Negative (Negative); Protein Urine 3+ (Negative); Urine Appearance Clear (CLEAR); Urine Color Yellow (Yellow); Urobilinogen Urine 0.2 mg/dL (Negative)
[2024-12-24 14:12] LABS: Add Urine Microscopic? YES; Bacteria Urine None Seen /hpf; Hyaline Casts Urine 0.81 /lpf; RBC Urine 0-2 /hpf (0-2); Squamous Epithelial Cell Urine 0-5 /hpf (0-5); WBC Urine 0-5 /hpf (0-5)
[2024-12-24 14:28] LABS: Alanine Aminotransferase 13 U/L (0-41); Albumin Level 3.6 g/dL (3.5-5.2); Alkaline Phosphatase 76 U/L (40-130); Anion Gap 15.2 (5-19); Aspartate Amino Transferase 14 U/L (0-40); Blood Urea Nitrogen 31 mg/dL (8-23); Calcium 8.6 mg/dL (8.5-10.5); Carbon Dioxide 25 mmol/L (22-29); Chloride 104 mmol/L (98-107); Globulin 3.7 g/dL (1.3-4.6); Glomerular Filtration Rate 37.8 mL/min (90-130); Glucose 169 mg/dL (65-115); Osmolality Calculated 298 mOsm/kg (285-295); Potassium 5.2 mmol/L (3.5-5.1); Sodium 139 mmol/L (136-145); Total Bilirubin 0.2 mg/dL (0.15-1.2); Total Protein 7.3 g/dL (6.6-8.7)
== END 2024-12-24 13:53 | disposition home or self-care (01) ==
LOC: LAB 13:53
PROVIDERS: PCP Family Medicine; Visit Provider Nurse Practitioner
DX: Z01.818 Encounter for other preprocedural examination (principal)
CPT/HCPCS: 80053; 81001; 85025

== ENCOUNTER → 2025-01-12 10:37 | Outpatient (BNVA) | payer MEDICARE, SELFPAY | PROVIDERS: PCP Family Medicine; Visit Provider Internal Medicine Rheumatology | DX: M05.79 Rheumatoid arthritis with rheumatoid factor of multiple sites without organ or systems involvement (principal); Z79.899 Other long term (current) drug therapy; N18.32 Chronic kidney disease, stage 3b; Z71.85 Encounter for immunization safety counseling | CPT/HCPCS: 99214 ==

== ENCOUNTER → 2025-01-18 11:36 | Outpatient (BNVA) | payer MEDICARE, SELFPAY | PROVIDERS: PCP Family Medicine; Visit Provider Family Medicine | DX: Z01.818 Encounter for other preprocedural examination (principal) | CPT/HCPCS: 93005 ==

== ENCOUNTER 2025-01-22 12:37 | Outpatient (CLI) | payer MEDICARE, SELFPAY ==
--- NOTE | 2025-01-22 12:45 | USCV_ITS ---
Uday Julien Age: 70 Gender: M : 1955 Exam Date: 01/22/2025 12:43 Ordering Phys: Yara Shankar MD Technologist: USR Exam Location: [facility] [place], [place] Indication: bruit Risk Factors: Previous Vascular Surgery: Right Brachial BP: / Left Brachial BP: / Right Left Velocity (cm/s) Spectral Plaque Velocity (cm/s) Spectral Plaque Syst/Diast Broadening Syst/Diast Broadening 80.20/ 12.80 Prox CCA 66.40 / 13.40 76.30/ 19.30 Mid CCA 62.20 / 14.40 63.40/ 12.80 Distal CCA 50.40 / 12.30 73.60/ 24.90 Prox ICA 56.00 / 18.00 85.60/ 24.80 Mid ICA 87.70 / 27.40 83.80/ 26.70 Distal ICA 78.40 / 26.50 73.70 ECA 195.50 1.20 ICA/CCA 1.10 Antegrade Vertebral Antegrade 27.90/ 7.80 cm/s 24.90/ 7.90 cm/s Tri Subclavian Tri 70.80 97.20 FINDINGS Comparison: none available. No significant elevation of systolic or diastolic velocities. Waveforms are normal. Mild bilateral carotid atherosclerosis. CONCLUSIONS Bilateral ICA stenosis less than 50%. Mild carotid atherosclerosis. Dr. Idalia Castellanos DO (Electronically Signed) Final Date: 22 January 2025 15:11 S
== END 2025-01-22 12:38 | disposition home or self-care (01) ==
PROVIDERS: PCP Family Medicine; Visit Provider Family Medicine
DX: R09.89 Other specified symptoms and signs involving the circulatory and respiratory systems (principal); I65.23 Occlusion and stenosis of bilateral carotid arteries
CPT/HCPCS: 93880

== ENCOUNTER 2025-01-26 05:50 | Day surgery (SDC) | payer MEDICARE, SELFPAY ==
[2025-01-26 06:11] VITALS: BP 200/106; PULSE 64; RESP 17; TEMP 36.8; O2SAT 95; BMI 32.5
[2025-01-26] MEDS: CELEcoxib 200 mg Capsule 400 MG PO (06:26)
[2025-01-26] MEDS: gabapentin 300 mg Capsule PO (06:26)
[2025-01-26] MEDS: acetaminophen 1,000 MG/100 ML PIGGYBACK 400 MG IV (06:27)
--- NOTE | 2025-01-26 06:30 | ANES.PREANE2 ---
Pre-Anesthetic Assessment Height/Weight: Height 1.78 m Weight 102.965 kg Temp Pulse Resp Pulse Ox O2 Del Method 98.3 F 64 17 95 Room Air 01/26/25 06:11 01/26/25 06:11 01/26/25 06:11 01/26/25 06:11 01/26/25 06:11 Operation Date: 01/26/25 07:00 Proposed Procedures p Carpal Tunnel Release(Right) - Guillermina Butler MD Familial anesthetic complications: None Was Beta Qi taken within 24 hours: N/A (patient didn't take his anti-hypertensives this morning. Will give labetalol) Was Clonidine taken within 24 hours: N/A Last intake: Intake Last Liquid Date 01/25/25 Last Liquid Time 19:00 Last Solid Date 01/25/25 Last Solid Time 19:00 Social Alcohol and Tobacco Vapes Exam alert, oriented x 3, clear to auscultation bilaterally and regular rate & rhythm Airway Mallampati: Class II Dentition: chipped CV/HEM Arrythmia (SVT), Congestive Heart Failure, Hypertension and Palpitations (Occasional- last episode several days ago for a minute or two) Chronic Renal Insufficiency GI Gastroesophageal Reflux Disease Metabolic Diabetes Mellitus Musc/skel Rheumatoid Arthritis Anesthetic Plan ASA status: 3 Anesthesia: General Risk of > 500 ml blood loss (7ml/kg in children): No Medications/Allergies Home Medications ?Medication ?Instructions ?Recorded ?Confirmed ?Last Taken ?Type amlodipine 10 mg tablet 10 mg PO DAILY 11/19/19 01/25/25 01/25/25 History pantoprazole 40 mg tablet,delayed 40 mg PO BID 11/19/19 01/25/25 01/25/25 History release (Protonix) tamsulosin 0.4 mg capsule (Flomax) 0.4 mg PO BID 11/19/19 01/25/25 01/25/25 History finasteride 5 mg tablet 5 mg PO DAILY 01/15/20 01/25/25 01/25/25 History albuterol sulfate 90 mcg/actuation 2 puff inhalation Q4H PRN 10/19/21 01/25/25 Unknown History aerosol inhaler Shortness Of Breath atorvastatin 10 mg tablet 10 mg PO DAILY 10/19/21 01/25/25 01/25/25 History ferrous sulfate 325 mg (65 mg 325 mg PO DAILY #90 tabs 02/09/22 03/10/25 03/10/25 Rx iron) tablet carvedilol 25 mg tablet 25 mg PO BID 01/18/22 01/25/25 01/25/25 History pioglitazone 15 mg tablet 15 mg PO DAILY 01/18/22 01/25/25 01/25/25 History spironolactone 25 mg tablet 25 mg PO DAILY 01/18/22 01/25/25 01/25/25 History furosemide 40 mg tablet (Lasix) 40 mg PO BID 09/11/22 01/25/25 01/25/25 History hydralazine 25 mg tablet 50 mg PO TID 09/11/22 01/25/25 01/25/25 History prednisone 5 mg tablet See Rx Instructions PO DAILY PRN 07/14/24 01/25/25 Unknown Rx flares #60 tabs sulfasalazine 500 mg tablet 0.5 g PO BID #180 tabs 01/12/25 01/25/25 01/25/25 Rx cholecalciferol (vitamin D3) 1,250 1,250 mcg PO .WEEKLY 01/25/25 01/25/25 01/25/25 History mcg (50,000 unit) capsule dapagliflozin propanediol 5 mg 5 mg PO DAILY 01/25/25 01/25/25 01/25/25 History tablet (Farxiga) Allergies Allergy/AdvReac Type Severity Reaction Status Date / Time No Known Allergies Allergy Verified 01/25/25 13:00 [facility] Anesthesia Medical History Immunization counseling High risk medication use Atrial tachycardia Uncontrolled hypertension Diastolic CHF CKD (chronic kidney disease) COPD (chronic obstructive pulmonary disease) Hypertensive emergency Chronic SI joint pain Opioid contract exists Encounter for long-term use of opiate analgesic Spondylosis without myelopathy or radiculopathy, lumbosacral region Long-term use of high-risk medication Postlaminectomy syndrome, not elsewhere classified Spinal stenosis, lumbar region with neurogenic claudication Degeneration of lumbar intervertebral disc Chronic low back pain Surgical History History of tonsillectomy History of lumbar laminectomy for spinal cord decompression Dr. Srivastava 03/28/17: Left L4-L5, L5-S1 laminectomy,discectomy,foraminotomy Status post hemilaminotomy 06/17/17 Dr. Srivastava: Left L4-L5 hemilaminotomy/discectomy/ foraminotomy. reexploration S/P knee surgery right S/P shoulder surgery Left Family History Mother No problems noted. Other CAD (coronary artery disease) Cancer Heart attack Hypertension Lung disease Stroke Denies family history of Rheumatoid arthritis Diabetes Lupus Hyperlipidemia Chronic kidney disease (CKD) Social History Smoking and tobacco/nicotine status: current every day tobacco/nicotine user Quit status (tobacco/nicotine): has quit using Year quit tobacco: now vapes occasionally Second hand smoke exposure: No Alcohol intake: former Substance/Drug Use: never Adopted: No Caregiver/support person: Yes (TO ) Lives independently: Yes Household members: spouse Marital status: Data Anesthesia Cardiac Studies: Echocardiogram 10/19/21 Cardiac Event Monitor 10/26/21
[2025-01-26 06:39] LABS: Glucose Point of Care 151 mg/dL (70-110)
[2025-01-26] MEDS: labetalol 5 mg/mL SDV 20mL 10 MG IVP (06:39)
[2025-01-26] MEDS: sodium chloride 0.9% 1,000 ML 30 ML IV (06:41)
--- NOTE | 2025-01-26 06:50 | P.HPUD_ITS ---
Surgery/Procedure H&P Update DATE OF PROCEDURE: January 26, 2025 DATE H&P PERFORMED: 01/18/25 H&P UPDATE INFORMATION: I have reviewed H&P completed within last 30 days, I have examined patient prior to procedure, No changes to prior documentation and H&P is in [facility] EMR on date indicated PREOP DIAGNOSIS: Right Carpal Tunnel Syndrome PLANNED PROCEDURE: Operation Date: 01/26/25 07:00 Proposed Procedures p Carpal Tunnel Release(Right) - Guillermina Butler MD Related Problem List Diagnoses (1) Carpal tunnel syndrome on right:
[2025-01-26 07:05] VITALS: BP 147/68
[2025-01-26 07:17] LABS: Anion Gap 15.4 (5-19); Blood Urea Nitrogen 45 mg/dL (8-23); Calcium 8.3 mg/dL (8.5-10.5); Carbon Dioxide 20 mmol/L (22-29); Chloride 110 mmol/L (98-107); Creatinine Clr Calc Pharmacy 35.4108; Glomerular Filtration Rate 27.1 mL/min (90-130); Glucose 158 mg/dL (65-115); Osmolality Calculated 305 mOsm/kg (285-295); Potassium 5.4 mmol/L (3.5-5.1); Sodium 140 mmol/L (136-145)
--- NOTE | 2025-01-26 07:35 | ECG_ITS ---
[facility] Date: 2025-01-26 Pat Name: Uday Julien Department: Room: Gender: Male Manager Distribution: : 1955 Requested By: Andressa Sewell Order Number: [id number] Gunn MD: Colin Monique M.D. Measurements Intervals Johnston Rate: 55 P: 23 GA: 140 QRS: 28 QRSD: 98 T: 37 QT: 434 QTc: 415 Interpretive Statements SINUS BRADYCARDIA Compared to ECG 01/18/2025 11:45:50 Sinus rhythm no longer present Electronically Signed On 01-29-2025 19:16:02 CDT by Colin Monique M.D. [email or web address]
[2025-01-26] MEDS: insulin regular-human 100 units/1 mL 10 UNIT IVP (07:38)
[2025-01-26] MEDS: dextrose 10% 125 ML 750 ML IV (07:39)
[2025-01-26] MEDS: albuterol 8 gm MDI 5 PUFF INHALATION (07:48)
--- NOTE | 2025-01-26 08:51 | PC.NURSE ---
[facility] results received, pt with high potassium, per Dr. Ascencio orders to repeat EKG, 10 units of Regular Insulin IVP, and 1/2 amp of D50 IVP, once completed pt will then have a repeat potassium check. Notified Dr. Butler. Labs sent down for repeat potassium around 0830.
[2025-01-26 08:57] LABS: Potassium 5.4 mmol/L (3.5-5.1)
--- NOTE | 2025-01-26 09:20 | PC.NURSE ---
Pt repeat potassium 5.4, after discussion with Dr. Ascencio// and pt, pt will follow up with primary care provider Dr. Gonzalez before rescheduling appointment. Strong encouraged pt to make appointment joss.
== END 2025-01-26 09:21 | disposition home or self-care (01) ==
PROVIDERS: Anesthesiology; PCP Family Medicine; Visit Provider Specialist
PROC: (CPT 64721; principal; 2025-01-26 07:00)
DX: G56.01 Carpal tunnel syndrome, right upper limb (principal); Z53.8 Procedure and treatment not carried out for other reasons; K21.9 Gastro-esophageal reflux disease without esophagitis; I13.0 Hypertensive heart and chronic kidney disease with heart failure and stage 1 through stage 4 chronic kidney disease, or unspecified chronic kidney disease; E11.22 Type 2 diabetes mellitus with diabetic chronic kidney disease; N18.9 Chronic kidney disease, unspecified; Z79.899 Other long term (current) drug therapy; M06.9 Rheumatoid arthritis, unspecified; J44.9 Chronic obstructive pulmonary disease, unspecified; I50.32 Chronic diastolic (congestive) heart failure; F17.290 Nicotine dependence, other tobacco product, uncomplicated
CPT/HCPCS: 36415; 36416; 80048; 82962; 84132; 93005; J0131; J1100; J1815; J2371; J2405; J2704; J3010; J3490; J3535; J7030; J7799; J9999

== ENCOUNTER 2025-03-08 13:21 | Outpatient (CLI) | payer MEDICARE, SELFPAY ==
[2025-03-08 14:45] LABS: Basophils # 0.1 10^3/uL (0.0-0.1); Basophils % 0.6 %; Eosinophils # 0.2 10^3/uL (0.0-0.8); Eosinophils % 2.9 %; Hematocrit 36.9 % (37-53); Lymphocytes # 1.3 10^3/uL (0.8-4.8); Lymphocytes % 16.3 %; Mean Corpuscular HGB Conc 31.4 g/dL (30-55); Mean Corpuscular Hemoglobin 28.3 pg (27-33); Mean Platelet Volume 9.7 fL (7.4-10.4); Monocytes # 0.8 10^3/uL (0.2-0.9); Monocytes % 10.1 %; Neutrophils # 5.53 10^3/uL (1.8-7.7); Neutrophils % 69.7 %; Nucleated Red Blood Cells % 0 %; Platelet Count 275 10^3/cmm (157-399); Red Cell Distribution Width 13.7 % (12.1-15.1); White Blood Count 7.93 10^3/uL (3.29-11.43)
[2025-03-08 14:58] LABS: Erythrocyte Sedimentation Rate 33 mm/hr (0-10)
[2025-03-08 15:10] LABS: Alanine Aminotransferase 11 U/L (0-41); Albumin Level 3.2 g/dL (3.5-5.2); Alkaline Phosphatase 67 U/L (40-130); Aspartate Amino Transferase 11 U/L (0-40); Globulin 2.9 g/dL (1.3-4.6); Glomerular Filtration Rate 29.9 mL/min (90-130); Total Bilirubin 0.2 mg/dL (0.15-1.2); Total Protein 6.1 g/dL (6.6-8.7)
[2025-03-08 16:07] LABS: Parathyroid Hormone 139.1 pg/mL (15-65)
[2025-03-08 16:14] LABS: Calcium 8.4 mg/dL (8.5-10.5)
[2025-03-08 21:03] LABS: Albumin Level 3.5 g/dL (3.5-5.2); Anion Gap 16.8 (5-19); Blood Urea Nitrogen 37 mg/dL (8-23); Calcium 8.5 mg/dL (8.5-10.5); Carbon Dioxide 21 mmol/L (22-29); Chloride 108 mmol/L (98-107); Glomerular Filtration Rate 29.9 mL/min (90-130); Glucose 129 mg/dL (65-115); Phosphorus 3.4 mg/dL (2.5-4.5); Potassium 5.8 mmol/L (3.5-5.1); Sodium 140 mmol/L (136-145)
[2025-03-09 00:04] LABS: 25 Hydroxy Vitamin D 30 ng/mL (30-100)
== END 2025-03-08 13:22 | disposition home or self-care (01) ==
PROVIDERS: Internal Medicine Rheumatology; PCP Family Medicine; Visit Provider Registered Nurse
DX: N18.31 Chronic kidney disease, stage 3a (principal); M05.79 Rheumatoid arthritis with rheumatoid factor of multiple sites without organ or systems involvement; Z79.899 Other long term (current) drug therapy; E55.9 Vitamin D deficiency, unspecified
CPT/HCPCS: 36415; 80069; 80076; 82306; 82310; 82565; 83970; 85025; 85651; 86140

== ENCOUNTER → 2025-07-22 11:54 | Outpatient (BNVA) | payer MEDICARE, SELFPAY | PROVIDERS: PCP Family Medicine; Visit Provider Internal Medicine Rheumatology | DX: M05.79 Rheumatoid arthritis with rheumatoid factor of multiple sites without organ or systems involvement (principal); N18.32 Chronic kidney disease, stage 3b; Z79.899 Other long term (current) drug therapy; Z71.85 Encounter for immunization safety counseling | CPT/HCPCS: 99214 ==